=== PATIENT | female | born 1995 | race African-American/Black ===

== ENCOUNTER 2021-12-05 10:08 | Outpatient (CLI) | payer BC, MEDICAID, SELFPAY | END 2021-12-05 10:09 | disposition home or self-care (01) | LOC: ANHLAB 10:14 | PROVIDERS: PCP Obstetrics & Gynecology; Visit Provider Obstetrics & Gynecology | DX: N92.6 Irregular menstruation, unspecified (principal) | CPT/HCPCS: 36415; 84702 ==

== ENCOUNTER 2021-12-08 09:39 | Outpatient (CLI) | payer BC, MEDICAID, SELFPAY | END 2021-12-08 09:40 | disposition home or self-care (01) | PROVIDERS: PCP Obstetrics & Gynecology; Visit Provider Obstetrics & Gynecology | DX: N92.6 Irregular menstruation, unspecified (principal) | CPT/HCPCS: 36415; 84702 ==

== ENCOUNTER 2022-01-02 08:10 | Emergency (ER) | payer BC, MEDICAID, SELFPAY ==
--- NOTE | ~2022-01-02 | US_ITS ---
EXAMINATION: US OB <= 14 weeks fetus DATE: 01/02/2022 09:24 INDICATION: Right-sided pain during first trimester TECHNIQUE: Real-time pelvic transabdominal and transvaginal ultrasound was performed. COMPARISON: None. FINDINGS: The uterus measures 14.1 x 8.3 x 4.9 cm. There is an intrauterine gestational sac. A yolk sac is identified. heart motion is identified measuring 159 beats per minute (bpm) by M-mode Do ppler. The crown rump length measures 3.8 cm, which correlates with an estimated gestational ag e of 10 weeks and 5 day(s) (+/-) 7 day(s). The right ovary measures 3.9 x 2.0 x 2.0 cm. The left ovary measures 2.2 x 1.5 x 1.7 cm. There is nor mal vascular flow in the ovaries. There is no free fluid in the pelvis. IMPRESSION: 1. Live intrauterine with an estimated gestational age of 10 weeks and 5 day(s) (+/-) 7 day (s) and an estimated delivery date of 07/26/2022. Reviewed, dictated and finalized at location A. IMPRESSION: 1. Live intrauterine with an estimated gestational age of 10 weeks an d 5 day(s) (+/-) 7 day(s) and an estimated delivery date of 07/26/2022.
[2022-01-02 08:15] VITALS: BP 132/88; PULSE 69; RESP 16; TEMP 36.7; O2SAT 99
--- NOTE | 2022-01-02 08:19 | ED.ABDPAIN ---
HPI - Abdominal Pain General Chief Complaint: Abdominal Pain Stated Complaint: right abdomen pain, 12 weeks Time Seen by Provider: 01/02/22 08:18 Source: patient and RN notes reviewed Mode of arrival: ambulatory Limitations: no limitations History of Present Illness HPI narrative: 26 years old -[place] female drove herself to the emergency room complaining of right lower quadrant pain without radiation started 1 week ago, intermittent, getting more intense lately. Patient found out that she is recently. Patient is 5 para 1 3, history of PCOS currently on vitamins, she denied any smoking ,drinking or using drugs last menstrual period was August 30, 2021 she denied any vaginal bleeding or discharge also she denies any fever, chills or nausea. Patient reported vomiting twice over the last 24 hours Related Data Home Medications Medication Instructions Recorded Confirmed vits,calcium 91-iron 28 pkg PO 01/02/22 mg-folic 975 mcg-dha 200 mg oral pack ( + DHA) Allergies Allergy/AdvReac Type Severity Reaction Status Date / Time No Known Allergies Allergy Verified 01/02/22 08:19 Review of Systems Review of Systems: All systems reviewed & are unremarkable except as noted in HPI and below PMFSH Past Medical History Medical History Liver disease MTHFR gene mutation Obesity PCOS (polycystic ovarian syndrome) Suppression of menses Social History Social History Smoking status: Never smoker Alcohol intake: never Substance use: never Substance use type: does not use 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 Gender identity (if verbalized by the patient): Female Sexual Orientation (if Verbalized by the Patient): Straight or Heterosexual Exam Narrative: General appearance: Well-developed, well-nourished Skin: Normal color Head: Normocephalic, nontraumatic Eyes: Clear conjunctiva ENT: Oropharynx normal, ears normal, nose normal Neck: Supple, nontender Chest and respiratory: Airway patent, no respiratory distress, no accessory muscle use Heart: Regular rate/rhythm Abdomen: Soft, slight tenderness right lower quadrant, no organomegaly, quiet bowel sounds Vascular: Normal peripheral pulses, normal capillary refill. Musculoskeletal: Normal range of motion, nontender back Neurologic: Alert and oriented ?3, [employer] is normal as tested, no gross motor deficit Course Vital Signs Vital signs: Vital Signs Temperature 36.7 C 01/02/22 08:15 Pulse Rate 69 01/02/22 08:15 Respiratory Rate 16 01/02/22 08:15 Blood Pressure 132/88 01/02/22 08:15 Pulse Oximetry 99 01/02/22 08:15 Oxygen Delivery Room Air 01/02/22 08:15 Temperature 36.7 C 01/02/22 08:15 Pulse Rate 69 01/02/22 08:15 Respiratory Rate 16 01/02/22 08:15 Blood Pressure 132/88 01/02/22 08:15 Pulse Oximetry 99 01/02/22 08:15 Oxygen Delivery Room Air 01/02/22 08:15 MDM - Abdominal Pain Differential Diagnosis Differential diagnosis: Likely abdominal pain, acute appendicitis, calculus of kidney, constipation and diverticulitis Lab Data Result diagrams: 01/02/22 08:25 01/02/22 08:25 Labs: Lab Results 01/02/22 01/02/22 01/02/22 Range/Units 08:25 08:25 08:25 WBC 9.2 (4.5-10.0) K/mm3 RBC 4.72 (4.2-5.4) M/mm3 Hgb 14.5 (12.0-15.0) g/dL Hct 43.0 (37.0-47.0) % MCV 91.1 (80-100) fl MCH 30.7 (26-34) pg MCHC 33.7 (32-36) g/dl RDW 13.2 (11.5-14.5) % Plt Count 320 (150-375) k/mm3 MP
[2022-01-02 08:42] LABS: Basophils Percent Auto 0.2 % (0.2-1.2); Eosinophils Absolute Auto 0.3 K/mm3 (0-0.3); Eosinophils Percent Auto 2.7 % (0-4.4); Hemoglobin 14.5 g/dL (12.0-15.0); Immature Granulocyte Absolute 0.02 K/mm3 (0.00-0.031); Immature Granulocyte Percent A 0.2 % (0-0.5); Lymphocytes Absolute Auto 2.04 K/mm3 (0.9-3.2); Lymphocytes Percent Auto 22.2 % (18.3-44.2); Mean Corpuscular HGB Conc 33.7 g/dl (32-36); Mean Corpuscular Hemoglobin 30.7 pg (26-34); Mean Corpuscular Volume 91.1 fl (80-100); Mean Platelet Volume 9.5 fl (7.4-10.4); Monocytes Absolute Auto 0.5 K/mm3 (0.1-0.6); Monocytes Percent Auto 5.1 % (2.6-8.5); Neutrophils Absolute Auto 6.4 K/mm3 (1.3-6.7); Neutrophils Percent Auto 69.6 % (45.5-73.1); Platelet Count Result 320 k/mm3 (150-375); Red Blood Count 4.72 M/mm3 (4.2-5.4); Red Cell Distribution Width 13.2 % (11.5-14.5); White Blood Count 9.2 K/mm3 (4.5-10.0)
[2022-01-02 08:45] LABS: Add Urine Microscopic? NO; Appearance Urine Clear (Clear); Bilirubin Urine Negative (Negative); Blood Urine Negative (Negative); Color Urine Yellow (Yellow); Glucose Urine UA Negative (Negative); Ketones Urine Negative (Negative); Leukocyte Esterase Ur Negative LEU/UL (Negative); Nitrate Urine Negative (Negative); Protein Urine Negative (Negative); Specific Grav Ur 1.019 (1.001-1.035); Urobilinogen Urine Negative mg/dL (<2.0)
[2022-01-02 08:48] LABS: Alanine Aminotransferase 53 U/L (6-35); Albumin Level 3.9 g/dL (3.5-5.1); Alkaline Phosphatase 102 U/L (38-126); Anion Gap 7 mmol/L (8-16); Aspartate Amino Transferase 51 U/L (14-36); Bilirubin,Total 0.5 mg/dL (0.2-1.3); Blood Urea Nitrogen 7 mg/dL (7-17); Calcium 8.8 mg/dL (8.4-10.2); Carbon Dioxide 23 mmol/L (22-30); Chloride 104 mmol/L (98-107); Estimated CRCL calculation 137 ml/min; Estimated Glomerular Filt Rate > 60; Glucose 97 mg/dL (65-110); Lipase 71 U/L (23-300); Potassium 3.5 mmol/L (3.4-5.0); Sodium 134 mmol/L (137-145)
== END 2022-01-02 11:51 | disposition home or self-care (01) ==
PROVIDERS: Emergency Provider Emergency Medicine; PCP Obstetrics & Gynecology
DX: O26.891 Other specified pregnancy related conditions, first trimester (principal); R10.31 Right lower quadrant pain; O99.281 Endocrine, nutritional and metabolic diseases complicating pregnancy, first trimester; E28.2 Polycystic ovarian syndrome; E72.12 Methylenetetrahydrofolate reductase deficiency; O26.611 Liver and biliary tract disorders in pregnancy, first trimester; K76.9 Liver disease, unspecified; Z3A.12 12 weeks gestation of pregnancy
CPT/HCPCS: 36415; 76801; 80053; 81003; 83690; 84702; 85025; 85461; 99284

== ENCOUNTER 2022-01-08 08:11 | Outpatient (CLI) | payer BC, MEDICAID, SELFPAY ==
[2022-01-08 10:11] LABS: Glucose 1 Hour PP 50gm Dose 83 mg/dL
[2022-01-08 10:37] LABS: Basophils Percent Auto 0.2 % (0.2-1.2); Eosinophils Absolute Auto 0.2 K/mm3 (0-0.3); Eosinophils Percent Auto 1.9 % (0-4.4); Hematocrit 43.9 % (37.0-47.0); Hemoglobin 14.7 g/dL (12.0-15.0); Immature Granulocyte Absolute 0.04 K/mm3 (0.00-0.031); Immature Granulocyte Percent A 0.4 % (0-0.5); Lymphocytes Absolute Auto 1.95 K/mm3 (0.9-3.2); Lymphocytes Percent Auto 19.8 % (18.3-44.2); Mean Corpuscular HGB Conc 33.5 g/dl (32-36); Mean Corpuscular Hemoglobin 30.9 pg (26-34); Mean Corpuscular Volume 92.4 fl (80-100); Monocytes Absolute Auto 0.6 K/mm3 (0.1-0.6); Neutrophils Absolute Auto 7.1 K/mm3 (1.3-6.7); Neutrophils Percent Auto 71.7 % (45.5-73.1); Platelet Count Result 337 k/mm3 (150-375); Red Blood Count 4.75 M/mm3 (4.2-5.4); Red Cell Distribution Width 13.5 % (11.5-14.5); White Blood Count 9.9 K/mm3 (4.5-10.0)
[2022-01-08 10:49] LABS: Hepatitis B Surface Antigen Negative (Negative); Rubella IgG Antibody 12.9 IU/ML
[2022-01-08 10:55] LABS: HIV 1/2 Ab P24 Ag Result Negative (Negative)
[2022-01-09 13:49] LABS: Rapid Plasma Reagin Non-Reactive (NonReactive)
== END 2022-01-08 08:12 | disposition home or self-care (01) ==
PROVIDERS: PCP Obstetrics & Gynecology; Visit Provider Obstetrics & Gynecology
DX: N94.89 Other specified conditions associated with female genital organs and menstrual cycle (principal); E66.9 Obesity, unspecified
CPT/HCPCS: 36415; 82947; 84702; 85025; 86592; 86644; 86703; 86747; 86762; 86787; 86850; 86900; 86901; 87077; 87086; 87088; 87340; G0432

== ENCOUNTER 2022-03-12 12:12 | Outpatient (CLI) | payer BC, MEDICAID, SELFPAY | END 2022-03-12 13:10 | disposition home or self-care (01) | LOC: ANHOBOP 13:31 | PROVIDERS: PCP Obstetrics & Gynecology; Visit Provider Obstetrics & Gynecology | DX: O36.8190 Decreased fetal movements, unspecified trimester, not applicable or unspecified (principal); Z3A.00 Weeks of gestation of pregnancy not specified | CPT/HCPCS: 84112 ==

== ENCOUNTER 2022-04-27 07:12 | Outpatient (CLI) | payer MEDICAID, SELFPAY ==
[2022-04-27 09:30] LABS: Basophils Percent Auto 0.2 % (0.2-1.2); Eosinophils Absolute Auto 0.2 K/mm3 (0-0.3); Eosinophils Percent Auto 1.9 % (0-4.4); Hematocrit 40.4 % (37.0-47.0); Hemoglobin 13.3 g/dL (12.0-15.0); Immature Granulocyte Absolute 0.05 K/mm3 (0.00-0.031); Immature Granulocyte Percent A 0.5 % (0-0.5); Lymphocytes Absolute Auto 1.95 K/mm3 (0.9-3.2); Mean Corpuscular HGB Conc 32.9 g/dl (32-36); Mean Corpuscular Hemoglobin 30.2 pg (26-34); Mean Corpuscular Volume 91.8 fl (80-100); Mean Platelet Volume 9.6 fl (7.4-10.4); Monocytes Absolute Auto 0.6 K/mm3 (0.1-0.6); Monocytes Percent Auto 6.1 % (2.6-8.5); Neutrophils Absolute Auto 7.4 K/mm3 (1.3-6.7); Neutrophils Percent Auto 72.3 % (45.5-73.1); Platelet Count Result 404 k/mm3 (150-375); Red Cell Distribution Width 13.4 % (11.5-14.5); White Blood Count 10.3 K/mm3 (4.5-10.0)
[2022-04-27 09:41] LABS: Glucose 1 Hour PP 50gm Dose 84 mg/dL
[2022-04-27 10:17] LABS: HIV 1/2 Ab P24 Ag Result Negative (Negative)
[2022-04-30 16:07] LABS: Hepatitis C RNA, Quant PCR 1670000 IU/mL
== END 2022-04-27 07:13 | disposition home or self-care (01) ==
PROVIDERS: Student in an Organized Health Care Education/Training Program; PCP Obstetrics & Gynecology; Visit Provider Obstetrics & Gynecology
DX: O98.419 Viral hepatitis complicating pregnancy, unspecified trimester (principal); Z3A.00 Weeks of gestation of pregnancy not specified; B18.2 Chronic viral hepatitis C
CPT/HCPCS: 36415; 82947; 85025; 86703; 87522; G0432

== ENCOUNTER 2022-05-07 13:23 | Observation (INO) | payer MEDICAID, SELFPAY ==
[2022-05-07 13:46] VITALS: BP 138/124; PULSE 106
[2022-05-07 14:01] VITALS: BP 125/68; PULSE 103
[2022-05-07 14:10] VITALS: BMI 39.6
--- NOTE | 2022-05-07 14:11 | OBADM ---
This patient, Fanny Connor, admitted to the OB room OB Post 115 for observation. Patient/family oriented to hospital policies and general routines including ID bracelet, bed and alarms, visiting hours, pain management, procedures, bathroom and other care routines, personal items, smoking policy, room service/diet, and visiting hours. Patient/Family are encouraged to report perceived risks to care and to ask questions if they do not understand what they are told or what they should do.
[2022-05-07 14:14] LABS: Appearance Urine Clear (Clear); Bilirubin Urine Negative (Negative); Blood Urine Negative (Negative); Color Urine Yellow (Yellow); Glucose Urine UA Negative (Negative); Ketones Urine Trace mg/dL (Negative); Leukocyte Esterase Ur Negative LEU/UL (Negative); Nitrate Urine Negative (Negative); Protein Urine Negative (Negative); Urobilinogen Urine 0.2 mg/dL (<2.0); pH Urine 7.5 (5.0-9.0)
[2022-05-07 14:16] VITALS: BP 116/64; PULSE 98
[2022-05-07 14:20] LABS: Bacteria Urine Trace /hpf; Mucus Urine Rare /lpf; RBC Urine 0-2 /hpf (0-2); Squamous Epithelial Cell Urine Rare /hpf (Few); WBC Urine 0-3 /hpf
[2022-05-07 14:21] LABS: Add Urine Microscopic? YES
[2022-05-07 14:31] VITALS: BP 122/66; PULSE 97
--- NOTE | 2022-05-08 15:10 | P.PNOB_ITS ---
OB - Triage/Final Diagnosis Visit Information Reason for evaluation: threatened labor Comments/Additional reasons for admission: I have assessed the risk for this patient, Fanny Connor, and determined that she would benefit from observation care. Evaluation Laboratory results: Laboratory Tests 05/07/22 13:52 Urine Color Yellow Urine Appearance Clear Urine pH 7.5 Ur Specific [place] 1.020 Urine Protein Negative Urine Glucose (UA) Negative Urine Ketones Trace Ur Blood (Man) Negative Urine Nitrate Negative Urine Bilirubin Negative Urine Urobilinogen 0.2 Leukocyte Esterase Rfl Negative Urine RBC 0-2 Urine WBC 0-3 Ur Squamous Epith Cells Rare Urine Bacteria Trace Urine Mucus Rare
== END 2022-05-07 15:00 | disposition home or self-care (01) ==
PROVIDERS: Admitting Provider Obstetrics & Gynecology; PCP Nurse Practitioner Family; Visit Provider Obstetrics & Gynecology
DX: O47.03 False labor before 37 completed weeks of gestation, third trimester (principal); Z3A.29 29 weeks gestation of pregnancy
CPT/HCPCS: 81001; G0378; G0379

== ENCOUNTER 2022-05-17 13:26 | Observation (INO) | payer MEDICAID, SELFPAY ==
--- NOTE | 2022-05-17 13:45 | PC.NURSE ---
Pt presented to OB with complaints of occasional spotting when she wipes. Pt reports she has a lactose intolerance and ate ice cream and cheese yesterday and was followed by several bouts of diarrhea since. Her last reported bowel movement was early this morning. Pt states that when she wipes there is an occasional few spots of blood on the tissue but does not require a pad.
--- NOTE | 2022-05-17 13:47 | PC.NURSE ---
Dr. Coleman called on the pt. ordered pt to have CMP drawn, NST and fluids if the pt would like them.
--- NOTE | 2022-05-17 13:51 | PC.NURSE ---
Pt refusing IV fluids at this time.
[2022-05-17 13:56] VITALS: BP 120/69; PULSE 84
[2022-05-17 14:00] VITALS: BP 121/70; PULSE 80
[2022-05-17 14:15] VITALS: BP 119/71; PULSE 78
[2022-05-17 14:16] LABS: Alanine Aminotransferase 25 U/L (6-35); Albumin Level 3.7 g/dL (3.5-5.1); Alkaline Phosphatase 191 U/L (38-126); Anion Gap 2 mmol/L (8-16); Aspartate Amino Transferase 26 U/L (14-36); Bilirubin,Total 0.4 mg/dL (0.2-1.3); Blood Urea Nitrogen 5 mg/dL (7-17); Calcium 8.9 mg/dL (8.4-10.2); Carbon Dioxide 23 mmol/L (22-30); Chloride 107 mmol/L (98-107); Estimated Glomerular Filt Rate > 60; Glucose 66 mg/dL (65-110); Sodium 132 mmol/L (137-145)
[2022-05-17 14:30] VITALS: BP 121/70; PULSE 84
--- NOTE | 2022-05-21 09:46 | PM.OBTRLD ---
OB - Triage/Final Diagnosis Visit Information Date of evaluation: 05/17/22 Reason for evaluation: threatened labor Comments/Additional reasons for admission: I have assessed the risk for this patient, Fanny Connor, and determined that she would benefit from observation care. Evaluation Laboratory results: Laboratory Tests 05/17/22 13:55 Sodium 132 L Potassium 4.0 Chloride 107 Carbon Dioxide 23 Anion Gap 2 L BUN 5 L Creatinine 0.50 L Estim Creat Clear Calc Not Reportable Estimated GFR > 60 Glucose 66 Calcium 8.9 Total Bilirubin 0.4 AST 26 ALT 25 Alkaline Phosphatase 191 H Total Protein 7.0 Albumin 3.7
== END 2022-05-17 14:45 | disposition home or self-care (01) ==
PROVIDERS: Admitting Provider Student in an Organized Health Care Education/Training Program; PCP Nurse Practitioner Family; Visit Provider Student in an Organized Health Care Education/Training Program
DX: O47.03 False labor before 37 completed weeks of gestation, third trimester (principal); Z3A.30 30 weeks gestation of pregnancy
CPT/HCPCS: 36415; 59025; 80053; G0378; G0379

== ENCOUNTER 2022-06-04 09:18 | Outpatient (CLI) | payer MEDICAID, SELFPAY ==
[2022-06-04 10:23] LABS: Prothrombin Time 12.7 Seconds (11.1-14.7)
[2022-06-04 10:24] LABS: Partial Thromboplastin Time 21.8 SECONDS (22.3-36.8)
[2022-06-04 10:47] LABS: Alanine Aminotransferase 23 U/L (6-35); Albumin Level 3.4 g/dL (3.5-5.1); Alkaline Phosphatase 215 U/L (38-126); Anion Gap 4 mmol/L (8-16); Aspartate Amino Transferase 26 U/L (14-36); Bilirubin,Total 0.5 mg/dL (0.2-1.3); Blood Urea Nitrogen 4 mg/dL (7-17); Calcium 8.5 mg/dL (8.4-10.2); Carbon Dioxide 20 mmol/L (22-30); Chloride 109 mmol/L (98-107); Estimated Glomerular Filt Rate > 60; Glucose 96 mg/dL (65-110); Potassium 3.7 mmol/L (3.4-5.0); Sodium 133 mmol/L (137-145)
== END 2022-06-04 09:19 | disposition home or self-care (01) ==
LOC: ANHLAB 09:21
PROVIDERS: PCP Nurse Practitioner Family
DX: B19.20 Unspecified viral hepatitis C without hepatic coma (principal)
CPT/HCPCS: 36415; 80053; 85610; 85730

== ENCOUNTER 2022-06-11 11:07 | Outpatient (CLI) | payer MEDICAID, SELFPAY ==
--- NOTE | ~2022-06-11 | US_ITS ---
Limited Abdominal Sonogram: Real-time sonographic imaging of the right upper quadrant was performed. Clinical History: Right upper quadrant pain Findings: The liver appears normal with no evidence of mass lesion or bile duct dilatation. Main por geeta vein demonstrates normal direction of flow. The gallbladder is well distended, and appears normal with no evidence of gallstone or wall thickening. The common bile duct measures 3 mm. The pancreas, aorta, and IVC are obscured by bowel gas shadowing. Impression: No significant abnormality seen. Reviewed, dictated and finalized at location M. Impression: No significant abnormality seen.
== END 2022-06-11 11:08 | disposition home or self-care (01) ==
LOC: ANHIMG 11:08
PROVIDERS: PCP Nurse Practitioner Family; Visit Provider Obstetrics & Gynecology
DX: R10.11 Right upper quadrant pain (principal)
CPT/HCPCS: 76705

== ENCOUNTER 2022-06-22 15:35 | Observation (INO) | payer BC, OTHER, SELFPAY ==
[2022-06-22 16:00] VITALS: TEMP 36.6
[2022-06-22 16:45] VITALS: BP 142/78; PULSE 96
[2022-06-22 17:00] VITALS: BP 142/83; PULSE 109
[2022-06-22 17:18] LABS: Bacteria Urine Rare /hpf; Non Pathogenic Casts 0-2; RBC Urine 0-2 /hpf (0-2); Squamous Epithelial Cell Urine None seen /hpf (Few); WBC Urine 0-5 /hpf
[2022-06-22 17:28] LABS: Appearance Urine Clear (Clear); Bilirubin Urine Negative (Negative); Blood Urine Negative (Negative); Color Urine Yellow (Yellow); Glucose Urine UA Negative (Negative); Ketones Urine 2+ mg/dL (Negative); Leukocyte Esterase Ur Negative LEU/UL (Negative); Nitrate Urine Negative (Negative); Protein Urine Trace mg/dL (Negative); Specific Grav Ur >= 1.030 (1.001-1.035); Urobilinogen Urine 0.2 mg/dL (<2.0); pH Urine 6.5 (5.0-9.0)
[2022-06-22 17:31] LABS: Add Urine Microscopic? YES
--- NOTE | 2022-06-25 14:01 | PM.OBTRLD ---
OB - Triage/Final Diagnosis Visit Information Date of evaluation: 06/22/22 Reason for evaluation: threatened labor Comments/Additional reasons for admission: I have assessed the risk for this patient, Fanny Connor, and determined that she would benefit from observation care. Evaluation Laboratory results: Laboratory Tests 06/22/22 17:04 Urine Color Yellow Urine Appearance Clear Urine pH 6.5 Ur Specific [place] >= 1.030 Urine Protein Trace Urine Glucose (UA) Negative Urine Ketones 2+ H Ur Blood (Man) Negative Urine Nitrate Negative Urine Bilirubin Negative Urine Urobilinogen 0.2 Leukocyte Esterase Rfl Negative Urine RBC 0-2 Urine WBC 0-5 Ur Squamous Epith Cells None seen Urine Bacteria Rare Urine Casts 0-2
== END 2022-06-22 17:48 | disposition home or self-care (01) ==
PROVIDERS: Admitting Provider Student in an Organized Health Care Education/Training Program; PCP Nurse Practitioner Family; Visit Provider Student in an Organized Health Care Education/Training Program
DX: O47.03 False labor before 37 completed weeks of gestation, third trimester (principal); Z3A.36 36 weeks gestation of pregnancy
CPT/HCPCS: 81001; G0378; G0379

== ENCOUNTER 2022-07-06 13:33 | Outpatient (CLI) | payer BC, OTHER, SELFPAY | END 2022-07-06 14:10 | disposition home or self-care (01) | LOC: ANHOBOP 14:19 | PROVIDERS: PCP Nurse Practitioner Family; Visit Provider Obstetrics & Gynecology | DX: O42.90 Premature rupture of membranes, unspecified as to length of time between rupture and onset of labor, unspecified weeks of gestation (principal); Z3A.00 Weeks of gestation of pregnancy not specified | CPT/HCPCS: 59025; 84112 ==

== ENCOUNTER 2022-07-13 04:58 | Inpatient (IN) | payer BC, OTHER, SELFPAY ==
[2022-07-13] VITALS (132 sets, daily range): BP systolic 74–161; BP diastolic 33–127; PULSE 63–151; RESP 18; TEMP 36.8–37; O2SAT 94–100; BMI 40.3
--- NOTE | 2022-07-13 05:16 | LDADM ---
This patient, Fanny Connor, was admitted to Labor/Delivery/Recovery 105 on 07/13/22 at 04:58. Plans for labor, pain management and were discussed with patient. Patient/family oriented to hospital policies and general routines including ID bracelet, bed and alarms, visiting hours, pain management, procedures, bathroom and other care routines, personal items, smoking policy, room service/diet and guest tray routines, security routines, and visiting hours. Patient/Family are encouraged to report perceived risks to care and to ask questions if they do not understand what they are told or what they should do. See OBIX for further documentation.
[2022-07-13 05:33] LABS: Basophils Percent Auto 0.2 % (0.2-1.2); Eosinophils Absolute Auto 0.2 K/mm3 (0-0.3); Hematocrit 36.9 % (37.0-47.0); Hemoglobin 12.2 g/dL (12.0-15.0); Immature Granulocyte Absolute 0.03 K/mm3 (0.00-0.031); Immature Granulocyte Percent A 0.3 % (0-0.5); Lymphocytes Absolute Auto 2.48 K/mm3 (0.9-3.2); Lymphocytes Percent Auto 25.7 % (18.3-44.2); Mean Corpuscular HGB Conc 33.1 g/dl (32-36); Mean Corpuscular Volume 84.8 fl (80-100); Mean Platelet Volume 9.5 fl (7.4-10.4); Monocytes Absolute Auto 0.8 K/mm3 (0.1-0.6); Monocytes Percent Auto 7.8 % (2.6-8.5); Neutrophils Absolute Auto 6.2 K/mm3 (1.3-6.7); Platelet Count Result 361 k/mm3 (150-375); Red Blood Count 4.35 M/mm3 (4.2-5.4); White Blood Count 9.7 K/mm3 (4.5-10.0)
[2022-07-13] MEDS: OXYTOCIN 30 UNITS/NS 500 ML 30 UNITS/500 ML BAG IV CONT (05:37)
[2022-07-13] MEDS: LACTATED RINGERS 1,000 ML 125 ML IV CONT (05:38)
[2022-07-13] MEDS: AMPICILLIN 2 GM/NS 100 ML 2 GM/100 ML BAG IVPB (05:39)
[2022-07-13 05:55] LABS: Alanine Aminotransferase 25 U/L (6-35); Albumin Level 3.5 g/dL (3.5-5.1); Alkaline Phosphatase 274 U/L (38-126); Anion Gap 4 mmol/L (8-16); Aspartate Amino Transferase 27 U/L (14-36); Bilirubin,Total 0.5 mg/dL (0.2-1.3); Blood Urea Nitrogen 6 mg/dL (7-17); Calcium 8.4 mg/dL (8.4-10.2); Carbon Dioxide 19 mmol/L (22-30); Chloride 110 mmol/L (98-107); Estimated CRCL calculation 134 ml/min; Estimated Glomerular Filt Rate > 60; Glucose 87 mg/dL (65-110); Potassium 3.7 mmol/L (3.4-5.0); Sodium 133 mmol/L (137-145)
[2022-07-13] MEDS: TERBUTALINE SULFATE 1 MG/ML VIAL 0.25 MG SUB-Q (07:54)
[2022-07-13] MEDS: fentaNYL CITRATE INJ (*CRX) 100 MCG/2 ML VIAL 50 MCG IV PUSH (08:17)
[2022-07-13] MEDS: AMPICILLIN 1 GM/NS 50 ML 1 GM/50 ML BAG IVPB (09:22)
[2022-07-13] MEDS: ONDANSETRON INJ 4 MG/2 ML VIAL IV PUSH (09:46)
--- NOTE | 2022-07-13 11:06 | WPDANESEPPF ---
Anes - Initial Pre Proc Eval Date/Time: 07/13/22 11:06 Surgeon: Scout Marino MD Pre Op Diagnosis: IOL Patient Data Age: 27 Gender: F Height: 1.57 m Weight: 100 kg Last Vital Signs Pulse 99 07/13/22 11:01 BP 109/66 07/13/22 11:01 Pulse Ox 100 07/13/22 11:02 O2 Del Method Room Air 07/13/22 05:13 Allergies Allergy/AdvReac Type Severity Reaction Status Date / Time No Known Allergies Allergy Verified 07/11/22 14:04 Home Medications Medication Instructions Recorded Confirmed Type vits,calcium 91-iron 28 pkg PO 01/02/22 07/11/22 History mg-folic 975 mcg-dha 200 mg oral pack ( + DHA) Laboratory Tests 07/13/22 05:25 WBC 9.7 K/mm3 (4.5-10.0) RBC 4.35 M/mm3 (4.2-5.4) Hgb 12.2 g/dL (12.0-15.0) Hct 36.9 L % (37.0-47.0) MCV 84.8 fl (80-100) MCH 28.0 pg (26-34) MCHC 33.1 g/dl (32-36) RDW 14.0 % (11.5-14.5) Plt Count 361 k/mm3 (150-375) MPV 9.5 fl (7.4-10.4) Immature Gran % (Auto) 0.3 % (0-0.5) Neut % (Auto) 64.0 % (45.5-73.1) Lymph % (Auto) 25.7 % (18.3-44.2) [place] % (Auto) 7.8 % (2.6-8.5) Eos % (Auto) 2.0 % (0-4.4) Baso % (Auto) 0.2 % (0.2-1.2) Lymph # (Auto) 2.48 K/mm3 (0.9-3.2) [place] # (Auto) 0.8 H K/mm3 (0.1-0.6) Eos # (Auto) 0.2 K/mm3 (0-0.3) Baso # (Auto) 0.0 K/mm3 (0.0-0.1) Abs Immat Gran (auto) 0.03 K/mm3 (0.00-0.031) Absolute Neuts (auto) 6.2 K/mm3 (1.3-6.7) Absolute Nucleated RBC 0.0 K/mm3 (0.0-0.012) Nucleated RBC % 0.0 % (0.0-0.2) Sodium 133 L mmol/L (137-145) Potassium 3.7 mmol/L (3.4-5.0) Chloride 110 H mmol/L (98-107) Carbon Dioxide 19 L mmol/L (22-30) Anion Gap 4 L mmol/L (8-16) BUN 6 L mg/dL (7-17) Creatinine 0.60 L mg/dL (0.7-1.0) Estim Creat Clear Calc 134 ml/min Estimated GFR > 60 (59 - ) Glucose 87 mg/dL (65-110) Calcium 8.4 mg/dL (8.4-10.2) Total Bilirubin 0.5 mg/dL (0.2-1.3) AST 27 U/L (14-36) ALT 25 U/L (6-35) Alkaline Phosphatase 274 H U/L (38-126) Total Protein 7.0 g/dL (6.3-8.2) Albumin 3.5 g/dL (3.5-5.1) RPR Pending Blood Type A Positive Antibody Screen Negative Patient hx anesthesia problems: none Family hx anesthesia problems: none Results Review: All pre-operative results and documents have been reviewed as part of the pre-operative evaluation. [facility] Past Medical History Medical History Liver disease MTHFR gene mutation Obesity PCOS (polycystic ovarian syndrome) Suppression of menses Family History Family History Other Patient denies significant medical history Social History Social History Smoking status: Never smoker Alcohol intake: never Substance use: never Substance use type: does not use Lack of Transportation: No Lack of Food: Never True Current Housing: I Have Housing Concerned About Future Housing: No Difficulty Paying Gas/Electric Bills: No Difficulty Paying for Meds: No Currently Unemployed: No Education: High School Diploma/GED Difficulty w/ Childcare or Family Care: No Living arrangements: with family Occupation/Education: occupation 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
[2022-07-13 11:25] LABS: Rapid Plasma Reagin Non-Reactive (NonReactive)
--- NOTE | 2022-07-13 13:33 | WPDHPUPDATE1 ---
History and Physical Update Update Date/Time: 07/13/22 13:33 History and Physical has been reviewed, including an updated exam of the patient. There are NO changes in the patient's condition. Risks, benefits, and alternatives have been discussed and questions answered. Patient agrees to proceed with procedure.
--- NOTE | 2022-07-13 13:33 | WPDOBADMIT ---
Obstetrics - Admit Note Admission Note: record reviewed. No pertinent additions to the history and/or any subsequent changes in the physical findings that are not consistent with the expected course of the were found. Additions to the history and/or subsequent changes in the physical findings follow. None.
--- NOTE | 2022-07-13 13:33 | PM.OBPRVD ---
OB - Delivery Note Procedure Events: Other (History of hepatitis-C) Induction method: Per Pitocin Protocol Delivery augmentation: Rupture of Membranes Delivery monitor: External FHT and External Uterine Route of delivery: Episiotomy description: None Laceration Description: None Specimen: Yes Quantitative Blood Loss (ml): 300 Anesthesia type: Epidural Disposition: Floor Complications: none Narrative: patient prepped draped usual manner for this procedure. Maternal expulsive efforts readily delivered vertex with delivery of the rest of baby without difficulty. Cord clamped cut and placenta delivered spontaneously. Uterus was well contracted with minimal bleeding. Cervix vagina vulva were inspected with no lacerations or tears. Patient told procedure well and immediate postoperative condition of mother and baby were both excellent. [place] Baby Weeks of gestation at delivery: 39 gender: Female Weight (pounds): 7 Weight (ounces): 6 presentation: vertex Placenta delivery description: Spontaneous Cord Vessel Description: 3 Vessels score one minute: 9 score five minutes: 9 AMG Delivery Billing Delivery Delivery: Delivery Charge
[2022-07-13] MEDS: OXYTOCIN 30 UNITS/NS 500 ML 30 UNITS/500 ML BAG 125 UNITS IV CONT (13:45)
[2022-07-13] MEDS: IBUPROFEN 600 MG TABLET PO ×2 (17:09→23:40)
--- NOTE | 2022-07-13 17:18 | OBPPTRN ---
1615-Patient transferred to post room #292 via wheelchair. Support person present. Oriented to unit, room, information board, rooming in, admission packet and security measures. Patient verbalizes understanding.
[2022-07-14 04:23] VITALS: BP 120/71; PULSE 76; RESP 16; O2SAT 98
[2022-07-14 05:12] LABS: Hematocrit 37.1 % (37.0-47.0); Hemoglobin 11.7 g/dL (12.0-15.0)
[2022-07-14 06:40] VITALS: BP 124/71; PULSE 82; RESP 14; TEMP 36.2; O2SAT 100
--- NOTE | 2022-07-14 07:31 | PM.OBDSVD ---
DS: Admitting Diagnosis Discharge Date 07/14/2022 Admitting Diagnosis DS: Discharge Diagnosis Discharge Diagnosis (1) , delivered: Code(s): O80 - Encounter for full-term uncomplicated delivery Status: Acute OB - DS: Summary OB Procedures : None OB Procedures Intrapartum: Spontaneous Vag Delivery OB Procedures: : None Time Spent with Patient Time attestation: Total time spent providing and/or coordinating discharge services: DS: Data Data Completed and Pending Pending studies at discharge: Pending at discharge 07/13/22 14:49 Surgical [PTH] Routine Labs on day of discharge: Labs from last 24 hours 07/14/22 07/13/22 07/13/22 04:22 14:18 05:25 Hgb 11.7 L Hct 37.1 RPR Non-reactive Hepatitis C Ab Screen Pending Discharge Plan Discharge Discharging Clinician: Scout Marino Patient Disposition: Home, Self-Care Activity: as tolerated Diet: as tolerated Patient Instructions: Antibiotic Form Stand Alone Forms: General Discharge Information Follow-up/Referrals: Scout Marino MD [Physician] - 3 Weeks Discharge Medications: Continued + DHA 28 mg iron- 975 mcg-200 mg Combo Pack PO Date of admission: 07/13/22 04:58 Primary Care Provider: Mariah,Marleny Garcia Admitting Provider: Scout Marino Attending physician on admission: Scout Marino Condition: Stable
[2022-07-14] MEDS: MULTIVIT/MIN/PREN/FOL AC/IRON TABLET 1 TAB PO (09:58)
--- NOTE | 2022-07-14 11:14 | WPDANLDPN2 ---
Anes-Prog Note L&D Date/Time: 07/14/22 11:14 Comfortable throughout: labor and delivery Neuraxial method: epidural Epidural/Spinal procedure site: clean & non-tender Neuro status: Neuro function grossly intact. Cardiovascular status: normal Respiratory status: normal Airway patency: baseline Mental status: baseline Post-Op hydration status: normal Vital Signs: Last Vital Signs Temp 36.2 C L 07/14/22 06:40 Pulse 82 07/14/22 06:40 Resp 14 07/14/22 06:40 BP 124/71 07/14/22 06:40 Pulse Ox 100 07/14/22 06:40 O2 Del Method Room Air 07/13/22 19:45 Pain score (VAS): 0 I/O: Intake & Output 07/13/22 07/14/22 07/14/22 23:59 07:59 15:59 Intake Total 400 Output Total 450 Balance -50 Post-procedural complaints: none Patient feedback: Patient satisfied with anesthetic care.
[2022-07-16 08:38] VITALS: BP 119/84; PULSE 86; RESP 16; TEMP 36.4; O2SAT 99
== END 2022-07-14 15:36 | disposition home or self-care (01) | DRG 807 ==
LOC: ANHLDR 05:01 → ANHOB2 16:17
PROVIDERS: Admitting Provider Obstetrics & Gynecology; PCP Nurse Practitioner Family; Visit Provider Obstetrics & Gynecology
DX: O80 Encounter for full-term uncomplicated delivery (principal); Z37.0 Single live birth; Z3A.39 39 weeks gestation of pregnancy
CPT/HCPCS: 36415; 80053; 85014; 85018; 85025; 86592; 86803; 86850; 86900; 86901; 88307; A9270; J0290; J2405; J2590; J2795; J3010; J3105; J7120

== ENCOUNTER 2022-09-17 07:56 | Outpatient (CLI) | payer BC, OTHER, SELFPAY ==
[2022-09-17 09:23] LABS: Hematocrit 44.6 % (37.0-47.0); Mean Corpuscular HGB Conc 31.4 g/dl (32-36); Mean Corpuscular Hemoglobin 27.4 pg (26-34); Mean Corpuscular Volume 87.3 fl (80-100); Mean Platelet Volume 10.5 fl (7.4-10.4); Platelet Count Result 327 k/mm3 (150-375); Red Blood Count 5.11 M/mm3 (4.2-5.4); Red Cell Distribution Width 16.6 % (11.5-14.5); White Blood Count 9.2 K/mm3 (4.5-10.0)
[2022-09-17 09:30] LABS: Anion Gap 8 mmol/L (8-16); Blood Urea Nitrogen 15 mg/dL (7-17); Calcium 8.8 mg/dL (8.4-10.2); Carbon Dioxide 25 mmol/L (22-30); Chloride 106 mmol/L (98-107); Estimated Glomerular Filt Rate > 60; Glucose 83 mg/dL (65-110); Potassium 3.9 mmol/L (3.4-5.0); Sodium 139 mmol/L (137-145)
[2022-09-17 09:31] LABS: Prothrombin Time 13.1 Seconds (11.1-14.7)
[2022-09-17 09:32] LABS: Partial Thromboplastin Time 24.7 SECONDS (22.3-36.8)
== END 2022-09-17 07:57 | disposition home or self-care (01) ==
PROVIDERS: Anesthesiology; PCP Nurse Practitioner Family; Visit Provider Obstetrics & Gynecology
DX: Z30.2 Encounter for sterilization (principal); B19.20 Unspecified viral hepatitis C without hepatic coma
CPT/HCPCS: 36415; 80048; 85027; 85610; 85730

== ENCOUNTER 2022-09-20 02:01 | Day surgery (SDC) | payer BC, OTHER, SELFPAY ==
[2022-09-13 10:06] VITALS: BMI 37.2
--- NOTE | 2022-09-13 10:10 | PC.NURSE ---
Report to the Outpatient Waiting Room, entrance under the green pavilion located off [facility], at time 6:30 on date 09/20/22. Planned Procedure Time: 8:30. Time changes happen often and if your time is changed the preop area will call you the afternoon before. - You and your visitor will be asked to self-screen and do not enter if you have any COVID symptoms. - A mask is optional within the hospital at this time. Patients may have clear liquids (water, carbonated beverages, clear teas, apple juice) until 3 hours prior to surgery (5:30) with a maximum of 20 ounces. - No food from midnight until time of surgery Take the following medications with a SIP of water the morning of surgery: N/A DO NOT STOP ANY OF YOUR OTHER PRESCRIPTION MEDICATIONS PRIOR TO SURGERY ?EXCEPT THE FOLLOWING Medications to discontinue per physician: N/A Date to take last dose: N/A Please no make-up, nail slovak, hairspray, perfume, deodorant, or body powder the day of surgery. No jewelry (including any body piercings) or valuables the day of surgery, leave them at home. Please take a shower or bath the night before, or the morning of, surgery with an antibacterial soap. Wear comfortable, loose fitting clothing. - Jewelry must be removed prior to entering the operating room. Rings and piercings that are not removed may be cut off. - The hospital will not accept responsibility for valuables. - Please leave all valuables, including medications, at home the day of surgery. If you are going home after surgery, a licensed new car driver must drive you home. - NO public transportation without another adult if you receive anesthesia. - We recommend that an adult stay with you for 24 hours following discharge. - We also recommend that you do not drive, make important decision, drink alcoholic beverages, or take any drugs that were not prescribed by your health care provider for at least 24 hours after your discharge time. Follow any additional instructions given to you from your surgeon. If you or anyone in your household have experienced Covid symptoms in the past week, please notify your surgeon or the nurse liaison at the phone number below for possible testing. Telephone instructions given to PT - CUONG ARREAGA and asked if any additional questions and then verbalized understanding. Patient advised to call surgeon office or pre surgery nurse liaison [phone] if any additional questions.
[2022-09-20] VITALS (7 sets, daily range): BP systolic 116–144; BP diastolic 66–86; PULSE 54–78; RESP 14–16; TEMP 36.4; O2SAT 93–100; BMI 37.0
[2022-09-20] MEDS: LACTATED RINGERS 1,000 ML 30 ML IV CONT (07:02)
[2022-09-20] MEDS: ACETAMINOPHEN 500 MG TABLET 1000 MG PO (07:06)
[2022-09-20] MEDS: KETOROLAC 15 MG/ML VIAL (*BKC) IV PUSH (07:07)
--- NOTE | 2022-09-20 07:58 | WPDANESEPPF ---
Anes - Initial Pre Proc Eval Procedure: Operation Date: 09/20/22 08:30 Proposed Procedures p Laparoscopic Bilateral Salpingectomy - Scout Marino MD Date/Time: 09/20/22 07:58 Surgeon: Scout Marino MD Pre Op Diagnosis: desired sterilization Patient Data Age: 27 Gender: F Height: 1.6 m Weight: 94.75 kg Last Vital Signs Temp 97.5 F L 09/20/22 06:40 Pulse 65 09/20/22 06:40 Resp 16 09/20/22 06:40 BP 116/66 09/20/22 06:40 Pulse Ox 99 09/20/22 06:40 O2 Del Method Room Air 09/20/22 06:40 Allergies Allergy/AdvReac Type Severity Reaction Status Date / Time No Known Allergies Allergy Verified 09/20/22 06:49 Home Medications Medication Instructions Recorded Confirmed Type No Home Medications 09/13/22 09/13/22 History Patient hx anesthesia problems: none Family hx anesthesia problems: none Results Review: All pre-operative results and documents have been reviewed as part of the pre-operative evaluation. [facility] Past Medical History Medical History Liver disease MTHFR gene mutation Obesity PCOS (polycystic ovarian syndrome) Suppression of menses Family History Family History Other Patient denies significant medical history Social History Social History Smoking status: Never smoker Alcohol intake: current Alcohol use details: VERY RARE Substance use: former Substance use type: marijuana Last use: >1 YEAR Lack of Transportation: No Lack of Food: Never True Current Housing: I Have Housing Concerned About Future Housing: No Difficulty Paying Gas/Electric Bills: No Difficulty Paying for Meds: No Currently Unemployed: No Education: High School Diploma/GED Difficulty w/ Childcare or Family Care: No Living arrangements: with family Occupation/Education: occupation 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 Gender identity (if verbalized by the patient): Female Sexual Orientation (if Verbalized by the Patient): Straight or Heterosexual Spiritual care concerns: No Anes - Eval Final PreProcedure Day of Procedure 07/06/23 07:58 Patient weight: obese Heart: regular rate and rhythm Lungs: clear to auscultation Airway: Mallampati scale class III Neurological: alert and oriented Last oral intake: >/= 8 hours ASA classification: III Emergent: no Anesthetic plan: proceed Anesthesia type and monitoring: general ETT and standard monitoring Results Review: All pre-operative results and documents have been reviewed as part of the pre-operative evaluation. Informed Consent: The patient's anesthetic plan and its attendant risks and benefits were discussed with the patient/family/POA. Questions were solicited and answers provided to the satisfaction of the patient/family/POA.
--- NOTE | 2022-09-20 08:28 | PM.IMHP ---
H&P: HPI History of Present Illness Date/Time: 09/20/22 08:28 27-year-old female presents for sterilization procedure. We have discussed permanence, failure rate, increased risk of ectopic and regret. She states good understanding and strongly desires to proceed with this permanent procedure. Chief Complaint: Female sterilization Review of Systems Review of Systems: All systems reviewed & are unremarkable except as noted in HPI and below PMFSH Past Medical History Medical History Liver disease MTHFR gene mutation Obesity PCOS (polycystic ovarian syndrome) Suppression of menses Family History Family History Other Patient denies significant medical history Social History Social History Smoking status: Never smoker Alcohol intake: current Alcohol use details: VERY RARE Substance use: former Substance use type: marijuana Last use: >1 YEAR Lack of Transportation: No Lack of Food: Never True Current Housing: I Have Housing Concerned About Future Housing: No Difficulty Paying Gas/Electric Bills: No Difficulty Paying for Meds: No Currently Unemployed: No Education: High School Diploma/GED Difficulty w/ Childcare or Family Care: No Living arrangements: with family Occupation/Education: occupation 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 Gender identity (if verbalized by the patient): Female Sexual Orientation (if Verbalized by the Patient): Straight or Heterosexual Spiritual care concerns: No Meds Home Medications and Allergies Home Medications Medication Instructions Recorded Confirmed Type No Home Medications 09/13/22 09/13/22 History Allergies Allergy/AdvReac Type Severity Reaction Status Date / Time No Known Allergies Allergy Verified 09/20/22 06:49 Vital Signs Vital Signs - 24 hr 09/20/22 06:40 Temperature 97.5 F L Pulse Rate 65 Respiratory Rate 16 Blood Pressure 116/66 Pulse Oximetry 99 Oxygen Delivery Room Air Exam Const: General: cooperative, healthy appearing and comfortable Resp: Effort & Inspection: normal respiratory effort Auscultation: clear to auscultation bilaterally Cardio: Rate: regular rate Rhythm: regular rhythm GI: Inspection: normal to inspection Auscultation: normal bowel sounds : External Female Exam: normal external appearance Speculum Exam - Vagina: normal appearance of the vagina Speculum Exam - Cervix: normal appearance of the cervix Bimanual exam- vagina & uterus: normal bimanual exam Bimanual Exam- Adnexa, other: normal adnexae Assessment and Plan Assessment and plan (1) Encounter for female sterilization procedure: Code(s): Z30.2 - Encounter for sterilization Status: Acute Assessment and Plan: Proceed with laparoscopic bilateral salpingectomy
--- NOTE | 2022-09-20 08:31 | WPDHPUPDATE1 ---
History and Physical Update Update Date/Time: 09/20/22 08:31 History and Physical has been reviewed, including an updated exam of the patient. There are NO changes in the patient's condition. Risks, benefits, and alternatives have been discussed and questions answered. Patient agrees to proceed with procedure.
--- NOTE | 2022-09-20 09:12 | W.PM.PROC2 ---
Procedure Note - Detailed Date of Procedure 09/20/22 Pre-op Diagnosis desired sterilization Post-op Diagnosis Same Procedure Performed Laparoscopic bilateral salpingectomy Surgeon Scout Marino MD Anesthesia General Findings Uterus tubes and ovaries without abnormality Description of Procedure Patient prepped and draped usual manner for this procedure. Periumbilical and lower quadrant incisions were made and trocars were placed under direct visualization. Visualization of the pelvis revealed findings as above. Mesial salpinx was cauterized and cut bilaterally and the tubes removed without difficulty. There was no bleeding, gas was allowed to escape, incisions were approximated using 4-0 Monocryl after the trocars removed. Patient was then sent to recovery room in stable condition. Estimated Blood Loss 10 Drains No Packing No Pathology Yes Complications No immediate complications Condition Stable Disposition PACU [facility] Billing Surgery - Charge Forward: Surgery Billing
== END 2022-09-20 10:47 | disposition home or self-care (01) ==
PROVIDERS: PCP Nurse Practitioner Family; Visit Provider Obstetrics & Gynecology
PROC: (CPT 49320; principal; 2022-09-20 08:30)
DX: Z30.2 Encounter for sterilization (principal); E72.12 Methylenetetrahydrofolate reductase deficiency; E28.2 Polycystic ovarian syndrome; E66.9 Obesity, unspecified; Z68.37 Body mass index [BMI] 37.0-37.9, adult
CPT/HCPCS: 58661; 88302; A9270; J0330; J1100; J1885; J2250; J2405; J2704; J3010; J7030; J7120

== ENCOUNTER 2022-10-14 09:07 | Emergency (ER) | payer OTHER, SELFPAY ==
[2022-10-14 09:47] VITALS: BP 127/84; PULSE 77; RESP 16; O2SAT 98
[2022-10-14 10:17] LABS: Basophils Percent Auto 0.2 % (0.2-1.2); Eosinophils Absolute Auto 0.3 K/mm3 (0-0.3); Eosinophils Percent Auto 2.5 % (0-4.4); Hematocrit 53.7 % (37.0-47.0); Immature Granulocyte Absolute 0.02 K/mm3 (0.00-0.031); Immature Granulocyte Percent A 0.2 % (0-0.5); Lymphocytes Absolute Auto 2.46 K/mm3 (0.9-3.2); Lymphocytes Percent Auto 22.1 % (18.3-44.2); Mean Corpuscular HGB Conc 31.7 g/dl (32-36); Mean Corpuscular Hemoglobin 27.8 pg (26-34); Mean Corpuscular Volume 87.7 fl (80-100); Mean Platelet Volume 9.6 fl (7.4-10.4); Monocytes Absolute Auto 0.6 K/mm3 (0.1-0.6); Monocytes Percent Auto 5.3 % (2.6-8.5); Neutrophils Absolute Auto 7.7 K/mm3 (1.3-6.7); Neutrophils Percent Auto 69.7 % (45.5-73.1); Platelet Count Result 367 k/mm3 (150-375); Red Blood Count 6.12 M/mm3 (4.2-5.4); Red Cell Distribution Width 15.9 % (11.5-14.5); White Blood Count 11.1 K/mm3 (4.5-10.0)
[2022-10-14 10:26] LABS: Appearance Urine Cloudy (Clear); Bacteria Urine None Seen /hpf; Bilirubin Urine Negative (Negative); Blood Urine Negative (Negative); Color Urine Yellow (Yellow); Glucose Urine UA Negative (Negative); Ketones Urine Negative (Negative); Leukocyte Esterase Ur Negative LEU/UL (Negative); Nitrate Urine Negative (Negative); Non Pathogenic Casts 0-2; Protein Urine Negative (Negative); RBC Urine 0-2 /hpf (0-2); Specific Grav Ur 1.025 (1.001-1.035); Squamous Epithelial Cell Urine Occasional /hpf (Few); Urobilinogen Urine 0.2 mg/dL (<2.0); WBC Urine 0-5 /hpf; pH Urine 5.5 (5.0-9.0)
[2022-10-14 10:28] LABS: Alanine Aminotransferase 82 U/L (6-35); Albumin Level 5.2 g/dL (3.5-5.1); Alkaline Phosphatase 194 U/L (38-126); Anion Gap 13 mmol/L (8-16); Aspartate Amino Transferase 53 U/L (14-36); Bilirubin,Total 0.6 mg/dL (0.2-1.3); Blood Urea Nitrogen 9 mg/dL (7-17); Calcium 10.4 mg/dL (8.4-10.2); Carbon Dioxide 23 mmol/L (22-30); Chloride 105 mmol/L (98-107); Estimated CRCL calculation 100 ml/min; Estimated Glomerular Filt Rate > 60; Glucose 86 mg/dL (65-110); Lipase 135 U/L (23-300); Potassium 3.9 mmol/L (3.4-5.0); Sodium 141 mmol/L (137-145)
[2022-10-14 11:07] LABS: Add Urine Microscopic? YES
== END 2022-10-14 11:10 | disposition left against medical advice (07) ==
PROVIDERS: Emergency Provider Emergency Medicine; PCP Nurse Practitioner Family
DX: R11.2 Nausea with vomiting, unspecified (principal)
CPT/HCPCS: 36415; 80053; 81001; 81025; 83690; 85025; 99199; A4565

== ENCOUNTER 2022-10-30 09:39 | Outpatient (CLI) | payer BC, OTHER, SELFPAY ==
[2022-10-30 10:16] LABS: Hematocrit 43.4 % (37.0-47.0); Hemoglobin 13.9 g/dL (12.0-15.0); Mean Corpuscular Hemoglobin 28.2 pg (26-34); Mean Platelet Volume 10.2 fl (7.4-10.4); Platelet Count Result 284 k/mm3 (150-375); Red Blood Count 4.93 M/mm3 (4.2-5.4); Red Cell Distribution Width 14.6 % (11.5-14.5); White Blood Count 10.3 K/mm3 (4.5-10.0)
[2022-10-30 10:29] LABS: Alanine Aminotransferase 40 U/L (6-35); Albumin Level 4.2 g/dL (3.5-5.1); Alkaline Phosphatase 108 U/L (38-126); Anion Gap 7 mmol/L (8-16); Aspartate Amino Transferase 39 U/L (14-36); Bilirubin,Total 0.5 mg/dL (0.2-1.3); Blood Urea Nitrogen 10 mg/dL (7-17); Calcium 8.6 mg/dL (8.4-10.2); Carbon Dioxide 26 mmol/L (22-30); Chloride 104 mmol/L (98-107); Cholesterol 221 mg/dL (0-200); Estimated Glomerular Filt Rate > 60; Glucose 82 mg/dL (65-110); HDL Direct 48 mg/dL; Potassium 3.9 mmol/L (3.4-5.0); Sodium 137 mmol/L (137-145); Triglycerides 76 mg/dL (<150)
[2022-10-30 10:40] LABS: LDL Cholesterol Direct 133 mg/dL
[2022-10-30 11:16] LABS: Vitamin D 25 Hydroxy 29.1 ng/mL
[2022-10-30 11:33] LABS: Folic Acid 14.5 ng/mL (2.76->20)
[2022-10-30 14:09] LABS: Hemoglobin A1C 5.1 % (<5.7)
[2022-11-02 12:32] LABS: Insulin Level Total 11.2 uIU/mL (<=19.6)
== END 2022-10-30 09:40 | disposition home or self-care (01) ==
LOC: ANHLAB 09:41
PROVIDERS: PCP Nurse Practitioner Family; Visit Provider Nurse Practitioner Family
DX: E88.81 Metabolic syndrome and other insulin resistance (principal); D50.9 Iron deficiency anemia, unspecified; E78.5 Hyperlipidemia, unspecified; E53.8 Deficiency of other specified B group vitamins; E55.9 Vitamin D deficiency, unspecified
CPT/HCPCS: 36415; 80053; 80061; 82306; 82607; 82728; 82746; 83036; 83525; 84443; 85027

== ENCOUNTER 2023-01-17 10:11 | Emergency (ER) | payer OTHER, SELFPAY ==
[2023-01-17] VITALS (13 sets, daily range): BP systolic 118–145; BP diastolic 68–105; PULSE 67–94; RESP 13–20; TEMP 36.1–36.7; O2SAT 97–100
--- NOTE | ~2023-01-17 | CT_ITS ---
EXAMINATION: CT cervical spine wo con DATE: 01/17/2023 10:35 INDICATION: Head injury. TECHNIQUE: Computed tomography (CT) of the cervical spine was performed without intravenous contrast. Automated exposure control and iterative reconstruction technique were employed. The dose-length pro duct was 470.41 mGy-cm. COMPARISON: None FINDINGS: There is 6 degrees levocurvature of cervicothoracic spine. There is kyphosis of cervical sp ine. Vertebral body heights and intervertebral disc heights are normal. At C7-T1, there is severe rig ht and mild left facet joint osteoarthritis. At C7-T1, there is mild right neural foraminal stenosis. No central canal stenosis. IMPRESSION: 1. No fracture. Reviewed, dictated and finalized at location E. IMPRESSION: 1. No fracture.
--- NOTE | ~2023-01-17 | CT_ITS ---
EXAMINATION: CT brain wo con DATE: 01/17/2023 10:35 INDICATION: Syncope. Head injury. TECHNIQUE: Computed tomography (CT) of the head was performed without intravenous contrast. The mA wa s adjusted according to patient size. Iterative reconstruction technique was employed. The dose-lengt h product was 529.67 mGy-cm. COMPARISON: None FINDINGS: There is no intracranial hemorrhage, acute infarction, or abnormal intracranial mass lesion . The ventricles are normal in size. The orbits are normal. There is mild mucosal thickening in the p aranasal sinuses. The mastoid air cells are normal. IMPRESSION: 1. Normal brain. Reviewed, dictated and finalized at location E. IMPRESSION: 1. Normal brain.
--- NOTE | ~2023-01-17 | CT_ITS ---
EXAMINATION: CTA chest PE protocol DATE: 01/17/2023 12:23 INDICATION: Chest pain, syncope. Elevated d-dimer. TECHNIQUE: Computed tomography angiography (CTA) of the chest was performed with 100 mL Omnipaque-350 intravenous contrast timed to evaluate the pulmonary arteries. Coronal maximum intensity projection 3D-reconstructions were created by the technologist. Automated exposure control and iterative reconst ruction technique were employed. Exam dose: 569.00 mGy-cm total exam DLP. COMPARISON: None. FINDINGS: There is diagnostic contrast enhancement of the pulmonary arteries and no evidence of pulmo nary embolism. No hilar or mediastinal mass lesion or lymphadenopathy. No thoracic aortic aneurysm or dissection. Heart size is within normal range. No pericardial or pleural effusion. No pulmonary infiltrate or consolidation or pulmonary mass lesion. Included skeletal structures are unremarkable. IMPRESSION: No evidence of pulmonary embolism Reviewed, dictated and finalized at Location A. Reviewed, dictated and finalized at location L.
--- NOTE | 2023-01-17 10:13 | ECG_ITS ---
Measurements Intervals [place] Rate: 77 P: 63 NE: 152 QRS: 26 QRSD: 87 T: 42 QT: 361 QTc: 409 Interpretive Statements SINUS RHYTHM WITH SINUS ARRHYTHMIA BASELINE WANDER- AVR, AVL, AVF NORMAL ECG NO PREVIOUS ECG AVAILABLE FOR COMPARISON Electronically Signed On 01-17-2023 11:20:37 CDT by Clayton Mc D.O.
--- NOTE | 2023-01-17 10:24 | ED.DIZZY ---
HPI - Dizziness General Chief Complaint: Dizziness Stated Complaint: dizzy, fainted, hit head Time Seen by Provider: 01/17/23 10:15 History of Present Illness HPI Narrative: 27-year-old female reports for evaluation for lightheadedness and syncope x2 this morning. Patient states she woke up this morning feeling lightheaded and dizzy. She got out of bed and continued to feel lightheaded. States she had 2 episodes of syncope today where she felt her heart racing, diaphoresis and experienced tunnel vision, and then woke up on the floor. States the first time when she was walking on her hallway after leaving her daughter's room the second time was after she got out of the shower. She does believe she hit her head on her left frontal scalp during the first syncope, and vomited shortly after. She also is reporting left anterior chest pain that does not radiate anywhere. She denies dyspnea, fever, cough or congestion, abdominal pain, focal numbness or weakness, diarrhea. She is also reporting a migraine for the past 2 days and describes it as a sharp stabbing pain across from the back of my head to the front of my head, which is atypical for her usual migraines. LMP approximately 2 weeks ago. Denies cardiac history or history of arrhythmias. Denies confusion or amnesia. Related Data Home Medications Medication Instructions Recorded Confirmed dulaglutide 0.75 mg/0.5 mL 0.75 mg subcut WEEKLY 10/08/22 10/08/22 subcutaneous pen injector (Trulicity) Allergies Allergy/AdvReac Type Severity Reaction Status Date / Time No Known Allergies Allergy Verified 10/08/22 09:14 Review of Systems Review of Systems: CONSTITUTIONAL: Denies fever, chills EYES: Denies visual changes, redness, or discharge. ENT: Denies rhinorrhea, congestion, sore throat, or otalgia. CARDIOVASCULAR: See HPI RESPIRATORY: Denies cough or dyspnea. GASTROINTESTINAL: Denies abdominal pain, nausea, vomiting, or diarrhea. GENITOURINARY: Denies dysuria or hematuria. SKIN: Denies rash or itching. MUSCULOSKELETAL: Denies back pain, joint pain, or myalgia. NEUROLOGIC: See HPI PSYCHIATRIC: Denies anxiety or depression. [facility] Past Medical History Medical History Liver disease MTHFR gene mutation Obesity PCOS (polycystic ovarian syndrome) Suppression of menses Surgical History Surgical History H/O bilateral salpingectomy (09/20/22) Laparoscopic bilateral salpingectomy Family History Family History Other Patient denies significant medical history Social History Social History Smoking status: Never smoker Alcohol intake: current Alcohol use details: VERY RARE Substance use: former Substance use type: marijuana Last use: >1 YEAR Lack of Transportation: No Lack of Food: Never True Current Housing: I Have Housing Concerned About Future Housing: No Difficulty Paying Gas/Electric Bills: No Difficulty Paying for Meds: No Currently Unemployed: No Education: High School Diploma/GED Difficulty w/ Childcare or Family Care: No Living arrangements: with family Occupation/Education: occupation 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 Patient resting comfortably in exam bed. She is pleasant and conversational. HEAD: Normocephalic EYES: PERRLA, EOMI ENT: Nares clear. Mucous membranes moist. Oropharynx without tonsillar hypertrophy exudate or other lesions. Bilateral TMs are stone nonbulging NECK: Supple. No midline cervical spinous tenderness, step-of
[2023-01-17] MEDS: SODIUM CHLORIDE 0.9% IV 1,000 ML 999 ML IV CONT (10:50)
[2023-01-17 11:02] LABS: Basophils Percent Auto 0.2 % (0.2-1.2); Eosinophils Absolute Auto 0.4 K/mm3 (0-0.3); Eosinophils Percent Auto 4.3 % (0-4.4); Hematocrit 46.1 % (37.0-47.0); Hemoglobin 14.9 g/dL (12.0-15.0); Immature Granulocyte Absolute 0.01 K/mm3 (0.00-0.031); Immature Granulocyte Percent A 0.1 % (0-0.5); Lymphocytes Absolute Auto 2.98 K/mm3 (0.9-3.2); Lymphocytes Percent Auto 35.6 % (18.3-44.2); Mean Corpuscular HGB Conc 32.3 g/dl (32-36); Mean Corpuscular Hemoglobin 29.2 pg (26-34); Mean Corpuscular Volume 90.4 fl (80-100); Mean Platelet Volume 9.8 fl (7.4-10.4); Monocytes Absolute Auto 0.5 K/mm3 (0.1-0.6); Monocytes Percent Auto 6.1 % (2.6-8.5); Neutrophils Absolute Auto 4.5 K/mm3 (1.3-6.7); Neutrophils Percent Auto 53.7 % (45.5-73.1); Platelet Count Result 359 k/mm3 (150-375); Red Cell Distribution Width 13.6 % (11.5-14.5); White Blood Count 8.4 K/mm3 (4.5-10.0)
[2023-01-17 11:07] LABS: Appearance Urine Clear (Clear); Bilirubin Urine Negative (Negative); Blood Urine Negative (Negative); Color Urine Yellow (Yellow); Glucose Urine UA Negative (Negative); Ketones Urine Negative (Negative); Leukocyte Esterase Ur Negative LEU/UL (Negative); Nitrate Urine Negative (Negative); Protein Urine Negative (Negative); Specific Grav Ur 1.025 (1.001-1.035); Urobilinogen Urine 0.2 mg/dL (<2.0)
[2023-01-17 11:13] LABS: Prothrombin Time 13.2 Seconds (11.1-14.7)
[2023-01-17 11:14] LABS: Partial Thromboplastin Time 25.5 SECONDS (22.3-36.8)
[2023-01-17 11:20] LABS: Add Urine Microscopic? NO
[2023-01-17] MEDS: KETOROLAC 30 MG/ML VIAL (*BKC) IV PUSH (11:28)
[2023-01-17] MEDS: diphenhydrAMINE HCl INJ 50 MG/ML VIAL 25 MG IV PUSH (11:29)
[2023-01-17] MEDS: PROCHLORPERAZINE EDISYLATE 10 MG/2 ML VIAL IV PUSH (11:31)
[2023-01-17 11:51] LABS: Alanine Aminotransferase 15 U/L (6-35); Albumin Level 3.8 g/dL (3.5-5.1); Alkaline Phosphatase 79 U/L (38-126); Anion Gap 5 mmol/L (8-16); Aspartate Amino Transferase 22 U/L (14-36); Bilirubin,Total 0.5 mg/dL (0.2-1.3); Blood Urea Nitrogen 6 mg/dL (7-17); Calcium 8.4 mg/dL (8.4-10.2); Carbon Dioxide 22 mmol/L (22-30); Chloride 109 mmol/L (98-107); Estimated CRCL calculation 113 ml/min; Estimated Glomerular Filt Rate > 60; Glucose 73 mg/dL (65-110); Potassium 3.7 mmol/L (3.4-5.0); Sodium 136 mmol/L (137-145)
[2023-01-17 11:52] LABS: Lipase 73 U/L (23-300)
[2023-01-17 11:52] LABS: D Dimer 0.63 ug/mL (<0.48)
[2023-01-17 12:03] LABS: NT Pro B Type Natriuretic Pept < 20 pg/mL (19.9-100); Troponin I < 0.012 ng/mL (0.000-0.034)
[2023-01-17 14:04] LABS: Troponin I < 0.012 ng/mL (0.000-0.034)
== END 2023-01-17 14:44 | disposition home or self-care (01) ==
PROVIDERS: Family Medicine; Emergency Provider Physician Assistant; PCP Nurse Practitioner Family
DX: R55 Syncope and collapse (principal); S09.90XA Unspecified injury of head, initial encounter; K76.9 Liver disease, unspecified; E28.2 Polycystic ovarian syndrome; E66.9 Obesity, unspecified; Z68.38 Body mass index [BMI] 38.0-38.9, adult; Z90.79 Acquired absence of other genital organ(s); W18.39XA Other fall on same level, initial encounter
CPT/HCPCS: 36415; 70450; 71275; 72125; 80053; 81003; 81025; 83690; 83735; 83880; 84484; 85025; 85380; 85610; 85730; 93005; 96361; 96374; 96375; 99284; J0780; J1200; J1885; J7030; Q9967

== ENCOUNTER 2023-04-08 16:47 | Emergency (ER) | payer OTHER, SELFPAY ==
[2023-04-08 16:58] VITALS: BP 111/79; PULSE 91; RESP 16; TEMP 36.6; O2SAT 100
[2023-04-08 16:59] VITALS: BP 111/79; PULSE 91; RESP 16; TEMP 36.6; O2SAT 100
--- NOTE | 2023-04-08 17:03 | ED.URI ---
HPI - URI/Sore Throat General Chief Complaint: Upper Respiratory Infection Stated Complaint: Congestion;Vomiting Time Seen by Provider: 04/08/23 17:03 Source: patient Mode of arrival: ambulatory Limitations: no limitations History of Present Illness HPI Narrative: 28-year-old female presents with complaint of sinus pressure, nasal congestion, postnasal drainage, intermittent nausea vomiting, fatigue for the past 3 days. Was not able to go to work today and needs work note. Has Zofran at home to treat nausea. Taking Sudafed for sinus pressure. Concern for influenza , does not want to spread to her 8-month-old child. All systems reviewed and negative except as noted above. Related Data Home Medications Medication Instructions Recorded Confirmed dulaglutide 0.75 mg/0.5 mL 0.75 mg subcut WEEKLY 10/08/22 04/08/23 subcutaneous pen injector (Trulicity) dextroamphetamine-amphetamine 30 30 mg PO DAILY 02/28/23 04/08/23 mg tablet (Adderall) lamotrigine 150 mg tablet 150 mg PO DAILY 02/28/23 04/08/23 topiramate 25 mg tablet 25 mg PO DAILY 02/28/23 04/08/23 sofosbuvir 400 mg-velpatasvir 100 1 tablet PO DIRECTED 04/08/23 04/08/23 mg tablet ubrogepant 50 mg tablet (Ubrelvy) 50 mg PO DIRECTED 04/08/23 04/08/23 Allergies Allergy/AdvReac Type Severity Reaction Status Date / Time No Known Allergies Allergy Verified 04/08/23 16:53 Review of Systems Review of Systems: CONSTITUTIONAL: Denies fever, chills, or sweats. Reports fatigue. EYES: Denies visual changes, redness, or discharge. ENT: Reports rhinorrhea, congestion, sinus pressure, postnasal drainage. Denies sore throat, or otalgia. CARDIOVASCULAR: Denies chest pain, palpitations, or edema. RESPIRATORY: Denies cough or dyspnea. GASTROINTESTINAL: Denies abdominal pain. Reports nausea, vomiting. Denies diarrhea. GENITOURINARY: Denies dysuria or hematuria. SKIN: Denies rash or itching. MUSCULOSKELETAL: Denies back pain, joint pain, or myalgia. NEUROLOGIC: Denies headache, numbness, or weakness. PSYCHIATRIC: Denies anxiety or depression. All other systems reviewed are negative, except as documented in HPI. [facility] Past Medical History Medical History Liver disease MTHFR gene mutation Obesity PCOS (polycystic ovarian syndrome) Suppression of menses Surgical History Surgical History H/O bilateral salpingectomy (09/20/22) Laparoscopic bilateral salpingectomy Family History Family History Other Patient denies significant medical history Social History Social History Smoking status: Never smoker Alcohol intake: current Alcohol use details: VERY RARE Substance use: former Substance use type: marijuana Last use: >1 YEAR Lack of Transportation: No Lack of Food: Never True Current Housing: I Have Housing Concerned About Future Housing: No Difficulty Paying Gas/Electric Bills: No Difficulty Paying for Meds: No Currently Unemployed: No Education: High School Diploma/GED Difficulty w/ Childcare or Family Care: No Living arrangements: with family Occupation/Education: occupation 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 There is no relevant family history pertinent to the presenting complaint. Exam Narrative: GENERAL: This is a well-nourished, well-developed patient, in no apparent distress. HEAD: normocephalic, atraumatic. EYES: PERRL. Sclera clear/white. Vision is grossly intact. EARS: External ears normal, a
== END 2023-04-08 17:20 | disposition home or self-care (01) ==
PROVIDERS: Emergency Provider Nurse Practitioner Family
DX: J01.90 Acute sinusitis, unspecified (principal); Z20.822 Contact with and (suspected) exposure to COVID-19; E72.12 Methylenetetrahydrofolate reductase deficiency; E66.9 Obesity, unspecified; Z68.37 Body mass index [BMI] 37.0-37.9, adult; E28.2 Polycystic ovarian syndrome
CPT/HCPCS: 87426; 87804; 99213; G0463

== ENCOUNTER 2023-04-27 12:33 | Emergency (ER) | payer OTHER, SELFPAY ==
--- NOTE | ~2023-04-27 | XR_ITS ---
EXAMINATION: XR chest 2V DATE: 04/27/2023 13:07 INDICATION: Chest pain TECHNIQUE: PA and lateral views of the chest are obtained. COMPARISON: None available FINDINGS: The lungs are free of acute opacities. No pleural effusion or pneumothorax. The cardiomedia stinal silhouette is normal. The visualized bones and soft tissues are unremarkable. IMPRESSION: 1. No acute cardiopulmonary abnormality. Reviewed, dictated and finalized at location F. A RELATIONS INTERN
[2023-04-27 12:40] VITALS: BP 117/72; PULSE 87; RESP 18; TEMP 36.2; O2SAT 100
--- NOTE | 2023-04-27 12:54 | ECG_ITS ---
Measurements Intervals [place] Rate: 87 P: -4 DE: 154 QRS: 33 QRSD: 85 T: 19 QT: 333 QTc: 402 Interpretive Statements SINUS RHYTHM NORMAL ECG COMPARED TO ECG 01/17/2023 10:39:22 NO SIGNIFICANT CHANGES Electronically Signed On 04-27-2023 13:23:21 [employer]OX WORK[employer] by Álvaro Kinsey M.D.
--- NOTE | 2023-04-27 13:01 | ED.GENADULT ---
HPI - General Adult General Chief complaint: Chest Pain Stated complaint: chest pain,hurts to breath Time Seen by Provider: 04/27/23 12:47 Source: patient and RN notes reviewed Mode of arrival: ambulatory Limitations: no limitations History of Present Illness HPI narrative: Patient presents today complaining of left chest tightness x3 days that radiates to the left shoulder. She also reports pain in her left lateral chest that is exacerbated with deep breath. This has been worsening since onset. She also reports some tingling to her upper arm. Denies shortness of breath, abdominal pain, weakness, headache. She currently rates her pain 6/10 and has tried some ibuprofen without relief. Denies cough congestion, or any other URI symptoms. Patient was seen at [facility] on 04/08/2023 and was diagnosed with a viral URI, but states these symptoms have resolved. Related Data Home Medications Medication Instructions Recorded Confirmed dextroamphetamine-amphetamine 30 30 mg PO DAILY 02/28/23 04/27/23 mg tablet (Adderall) lamotrigine 150 mg tablet 150 mg PO DAILY 02/28/23 04/27/23 topiramate 25 mg tablet 25 mg PO DAILY 02/28/23 04/27/23 Allergies Allergy/AdvReac Type Severity Reaction Status Date / Time No Known Allergies Allergy Verified 04/27/23 12:37 Review of Systems Review of Systems: CONSTITUTIONAL: Denies body aches, fever, chills, or sweats. EYES: Denies visual changes, redness, or discharge. ENT: Denies rhinorrhea, congestion, sore throat, or otalgia. CARDIOVASCULAR: Denies palpitations, or edema.+ chest pain RESPIRATORY: Denies cough or dyspnea. GASTROINTESTINAL: Denies abdominal pain, nausea, vomiting, or diarrhea. GENITOURINARY: Denies dysuria or hematuria. SKIN: Denies rash, itching, or wounds. MUSCULOSKELETAL: Denies back pain, joint pain, or myalgia. NEUROLOGIC: Denies headache, numbness, or weakness.+ tingling to left arm PSYCH: Denies depression or anxiety. [facility] Past Medical History Medical History Liver disease MTHFR gene mutation Obesity PCOS (polycystic ovarian syndrome) Suppression of menses Surgical History Surgical History H/O bilateral salpingectomy (09/20/22) Laparoscopic bilateral salpingectomy Family History Family History Other Patient denies significant medical history Social History Social History Smoking status: Never smoker Alcohol intake: current Alcohol use details: VERY RARE Substance use: former Substance use type: marijuana Last use: >1 YEAR Lack of Transportation: No Lack of Food: Never True Current Housing: I Have Housing Concerned About Future Housing: No Difficulty Paying Gas/Electric Bills: No Difficulty Paying for Meds: No Currently Unemployed: No Education: High School Diploma/GED Difficulty w/ Childcare or Family Care: No Living arrangements: with family Occupation/Education: occupation 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 Please see nursing chart for further information. There is no relevant family history pertinent to the presenting complaint Exam Narrative: GENERAL: Well-appearing, well-nourished, and in no acute distress. HEAD: Normocephalic, atraumatic. EYES: EOMI. No redness or drainage. Conjunctivae normal. ENT: Mucous membranes pink and moist. NECK: Normal AROM. Supple. No lymphadenopathy. CHEST: No respiratory distress. Clear to au
== END 2023-04-27 13:33 | disposition left against medical advice (07) ==
PROVIDERS: Emergency Provider Nurse Practitioner
DX: R07.89 Other chest pain (principal); E72.12 Methylenetetrahydrofolate reductase deficiency; E66.9 Obesity, unspecified; Z68.37 Body mass index [BMI] 37.0-37.9, adult; E28.2 Polycystic ovarian syndrome; K76.9 Liver disease, unspecified
CPT/HCPCS: 71046; 93005; 99213; G0463

== ENCOUNTER 2023-06-19 08:51 | Outpatient (CLI) | payer BC, OTHER, SELFPAY ==
[2023-06-19 09:04] LABS: Hematocrit 46.2 % (37.0-47.0); Hemoglobin 14.9 g/dL (12.0-15.0); Mean Corpuscular HGB Conc 32.3 g/dl (32-36); Mean Corpuscular Hemoglobin 29.6 pg (26-34); Mean Corpuscular Volume 91.8 fl (80-100); Mean Platelet Volume 9.9 fl (7.4-10.4); Platelet Count Result 328 k/mm3 (150-375); Red Blood Count 5.03 M/mm3 (4.2-5.4); Red Cell Distribution Width 13.5 % (11.5-14.5); White Blood Count 9.4 K/mm3 (4.5-10.0)
[2023-06-19 09:21] LABS: Alanine Aminotransferase 12 U/L (6-35); Albumin Level 4.2 g/dL (3.5-5.1); Alkaline Phosphatase 83 U/L (38-126); Anion Gap 3 mmol/L (4-12); Aspartate Amino Transferase 25 U/L (14-36); Bilirubin,Total 0.5 mg/dL (0.2-1.3); Blood Urea Nitrogen 11 mg/dL (7-17); Calcium 9.1 mg/dL (8.4-10.2); Carbon Dioxide 28 mmol/L (22-30); Chloride 107 mmol/L (98-107); Cholesterol 206 mg/dL (0-200); Estimated Glomerular Filt Rate > 60; Glucose 77 mg/dL (65-110); HDL Direct 56 mg/dL; Potassium 4.2 mmol/L (3.4-5.0); Sodium 138 mmol/L (137-145); Triglycerides 55 mg/dL (<150)
[2023-06-19 09:32] LABS: LDL Cholesterol Direct 123 mg/dL
[2023-06-19 09:49] LABS: Thyroid Stimulating Hormone 0.831 uIU/mL (0.465-4.680)
== END 2023-06-19 08:52 | disposition home or self-care (01) ==
LOC: ANHLAB 08:52
PROVIDERS: PCP Family Medicine; Visit Provider Family Medicine
DX: E66.9 Obesity, unspecified (principal); Z79.899 Other long term (current) drug therapy
CPT/HCPCS: 36415; 80053; 80061; 84443; 85027

== ENCOUNTER 2023-08-04 09:54 | Emergency (ER) | payer OTHER, SELFPAY ==
--- NOTE | 2023-08-04 09:55 | ED.NAVMDI ---
HPI - Nausea/Vomiting/Diarrhea General Chief complaint: Nausea/Vomiting/Diarrhea Stated complaint: Vomiting Time Seen by Provider: 08/04/23 09:55 Source: patient Mode of arrival: ambulatory Limitations: no limitations History of Present Illness HPI Narrative: Fanny is a 28-year-old female patient presenting to the clinic today with complaints of upper abdominal discomfort, nausea, and vomiting for the past couple weeks. No one else at home has had the symptoms. She reports that she is not having vomiting every day but when she is vomiting she vomits multiple times per day. She has vomited twice this morning. Is reporting swell fair burps. Takes Trulicity and has had an increase in this medication in May. She denies any excessive marijuana use. Denies -history tubal ligation. Went to the ED at [place] and had ultrasound, CT scan, and blood work completed at that time. She reports that nothing was found on the ultrasound or CT scan. 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 No history of GERD or stomach ulcers. Denies any fevers, chills, body aches, blood in her emesis. Related Data Home Medications Medication Instructions Recorded Confirmed dextroamphetamine-amphetamine 30 30 mg PO DAILY 02/28/23 08/04/23 mg tablet (Adderall) dextroamphetamine-amphetamine ER 10 mg PO DAILY 06/17/23 08/04/23 10 mg 24hr capsule,extend release (Adderall XR) lamotrigine 200 mg tablet 200 mg PO DAILY 08/04/23 08/04/23 ubrogepant 50 mg tablet (Ubrelvy) 50 mg PO PRN PRN Headache 08/04/23 08/04/23 Allergies Allergy/AdvReac Type Severity Reaction Status Date / Time sumatriptan Allergy Intermediate Rash Verified 08/04/23 10:05 rizatriptan Allergy Mild Rash Verified 08/04/23 10:05 Review of Systems Review of Systems: Pertinent positives per HPI. Patient denies any fever, chills, rash, headache, visual changes, dizziness, cough, runny nose, sore throat, shortness of breath, chest pain, palpitations, nausea, vomiting, diarrhea, constipation, abdominal pain, or any urinary issues. [facility] Past Medical History Medical History Liver disease MTHFR gene mutation Obesity PCOS (polycystic ovarian syndrome) Suppression of menses Surgical History Surgical History H/O bilateral salpingectomy (09/20/22) Laparoscopic bilateral salpingectomy Family History Family History Other Patient denies significant medical history Social History Social History Smoking status: Never smoker Alcohol intake: current Alcohol use details: VERY RARE Substance use: current Substance use type: marijuana Last use: >1 YEAR Lack of Transportation: No Lack of Food: Never True Current Housing: I Have Housing Concerned About Future Housing: No Difficulty Paying Gas/Electric Bills: No Difficulty Paying for Meds: No Currently Unemployed: No Education: High School Diploma/GED Difficulty w/ Childcare or Family Care: No Living arrangements: with family Occupation/Education: occupation 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 There is no relevant family history pertinent to the patient complaint. Exam Narrative: General: Well-developed, well nourished, in no apparent distress. Head: Normocephalic, atraumatic. Cardio: Regular rate and rhythm, s1 and s2 normal, no m
[2023-08-04 10:05] VITALS: BP 107/95; PULSE 82; RESP 16; TEMP 36.6; O2SAT 100
[2023-08-04 10:10] VITALS: BP 107/95; PULSE 82; RESP 16; TEMP 36.6; O2SAT 100
== END 2023-08-04 10:41 | disposition home or self-care (01) ==
PROVIDERS: Emergency Provider Nurse Practitioner Family; PCP Family Medicine
DX: R10.11 Right upper quadrant pain (principal); R10.12 Left upper quadrant pain; R11.2 Nausea with vomiting, unspecified; K76.9 Liver disease, unspecified; E72.12 Methylenetetrahydrofolate reductase deficiency; E66.9 Obesity, unspecified; Z68.33 Body mass index [BMI] 33.0-33.9, adult; E28.2 Polycystic ovarian syndrome
CPT/HCPCS: 99213; G0463

== ENCOUNTER 2023-08-06 13:32 | Outpatient (CLI) | payer OTHER, SELFPAY ==
[2023-08-08 12:54] LABS: Hepatitis C RNA, Quant PCR <15 NOT DETECTED IU/mL (NOT DETECTED)
== END 2023-08-06 13:33 | disposition home or self-care (01) ==
LOC: ANHLAB 13:33
PROVIDERS: PCP Family Medicine; Visit Provider Nurse Practitioner Family
DX: B19.20 Unspecified viral hepatitis C without hepatic coma (principal)
CPT/HCPCS: 36415; 87522

== ENCOUNTER 2023-08-15 08:43 | Emergency (ER) | payer OTHER, SELFPAY ==
--- NOTE | ~2023-08-15 | CT_ITS ---
EXAMINATION: CT abdomen pelvis w con DATE: 08/15/2023 10:34 INDICATION: Abdominal pain. Diarrhea. Vomiting. TECHNIQUE: Computed tomography (CT) of the abdomen and pelvis was performed with 100 mL Omnipaque 350 intravenous contrast. Automated exposure control and iterative reconstruction technique were employe d. The dose-length product was 708.31 mGy-cm. COMPARISON: Chest CT 01/17/2023 FINDINGS: The visualized portions of the lung bases are clear without pneumonia or pleural effusion. The heart size is normal. No pericardial effusion. The liver, gallbladder, spleen, pancreas, adrenal glands, and kidneys are normal. There are no dilated loops of bowel. The appendix is normal. There ar e no pathologically enlarged lymph nodes. There is no free intraperitoneal fluid. There is an umbilic al hernia containing fat. There is severe degenerative disc disease at L2-L3 and mild spondylosis at other levels. IMPRESSION: 1. Umbilical hernia containing fat. Reviewed, dictated and finalized at location A.
[2023-08-15 08:52] VITALS: BP 127/82; PULSE 72; RESP 15; TEMP 36.7; O2SAT 100
[2023-08-15 09:40] LABS: Basophils Percent Auto 0.1 % (0.2-1.2); Eosinophils Absolute Auto 1.4 K/mm3 (0-0.3); Eosinophils Percent Auto 14.2 % (0-4.4); Hematocrit 47.4 % (37.0-47.0); Hemoglobin 15.8 g/dL (12.0-15.0); Immature Granulocyte Absolute 0.01 K/mm3 (0.00-0.031); Immature Granulocyte Percent A 0.1 % (0-0.5); Lymphocytes Absolute Auto 3.07 K/mm3 (0.9-3.2); Lymphocytes Percent Auto 32.2 % (18.3-44.2); Mean Corpuscular HGB Conc 33.3 g/dl (32-36); Mean Corpuscular Hemoglobin 30.1 pg (26-34); Mean Corpuscular Volume 90.3 fl (80-100); Mean Platelet Volume 10.9 fl (7.4-10.4); Monocytes Absolute Auto 0.5 K/mm3 (0.1-0.6); Monocytes Percent Auto 5.6 % (2.6-8.5); Neutrophils Absolute Auto 4.6 K/mm3 (1.3-6.7); Neutrophils Percent Auto 47.8 % (45.5-73.1); Platelet Count Result 279 k/mm3 (150-375); Red Blood Count 5.25 M/mm3 (4.2-5.4); Red Cell Distribution Width 13.5 % (11.5-14.5); White Blood Count 9.5 K/mm3 (4.5-10.0)
[2023-08-15 09:46] LABS: Appearance Urine Clear (Clear); Bacteria Urine None Seen /hpf; Bilirubin Urine Negative (Negative); Blood Urine Non-Hemolyzed Trace (Negative); Color Urine Yellow (Yellow); Glucose Urine UA Negative (Negative); Ketones Urine 2+ mg/dL (Negative); Leukocyte Esterase Ur Negative LEU/UL (Negative); Nitrate Urine Negative (Negative); Non Pathogenic Casts 0-2; Protein Urine Negative (Negative); RBC Urine 0-2 /hpf (0-2); Squamous Epithelial Cell Urine Occasional /hpf (Few); WBC Urine 0-5 /hpf (0-3); pH Urine 6.5 (5.0-9.0)
[2023-08-15 09:48] LABS: Add Urine Microscopic? YES
[2023-08-15 09:52] LABS: Alanine Aminotransferase 12 U/L (6-35); Albumin Level 4.3 g/dL (3.5-5.1); Alkaline Phosphatase 99 U/L (38-126); Anion Gap 8 mmol/L (4-12); Aspartate Amino Transferase 20 U/L (14-36); Bilirubin,Total 0.6 mg/dL (0.2-1.3); Blood Urea Nitrogen 5 mg/dL (7-17); Calcium 8.7 mg/dL (8.4-10.2); Carbon Dioxide 25 mmol/L (22-30); Chloride 105 mmol/L (98-107); Estimated CRCL calculation 96 ml/min; Estimated Glomerular Filt Rate > 60; Glucose 82 mg/dL (65-110); Lipase 115 U/L (23-300); Potassium 3.4 mmol/L (3.4-5.0); Sodium 138 mmol/L (137-145)
[2023-08-15 10:05] VITALS: BP 127/79; PULSE 68
[2023-08-15 10:08] VITALS: BP 130/93; PULSE 82
[2023-08-15] MEDS: FAMOTIDINE 20 MG/2 ML VIAL IV PUSH (10:37)
[2023-08-15] MEDS: SODIUM CHLORIDE 0.9% IV 1,000 ML 999 ML IV CONT (10:37)
[2023-08-15] MEDS: ONDANSETRON INJ 4 MG/2 ML VIAL IV PUSH (10:38)
--- NOTE | 2023-08-15 10:39 | ED.NAVMDI ---
HPI - Nausea/Vomiting/Diarrhea General Chief complaint: Nausea/Vomiting/Diarrhea Stated complaint: Dehydration Time Seen by Provider: 08/15/23 09:17 Source: patient Mode of arrival: ambulatory Limitations: no limitations History of Present Illness HPI Narrative: This is a 28-year-old female that presents to the emergency department for abdominal pain and diarrhea. Ongoing intermittently over the last 4 weeks. Reports since last night she had multiple episodes of diarrhea. Also reports some nausea and vomiting. She has seen GI for this issue. Is scheduled for endoscopy, but this is not until September. Denies fevers or dysuria. Related Data Home Medications Medication Instructions Recorded Confirmed dextroamphetamine-amphetamine 30 30 mg PO DAILY 02/28/23 08/06/23 mg tablet (Adderall) dextroamphetamine-amphetamine ER 10 mg PO DAILY 06/17/23 08/06/23 10 mg 24hr capsule,extend release (Adderall XR) lamotrigine 200 mg tablet 200 mg PO DAILY 08/04/23 08/06/23 ubrogepant 50 mg tablet (Ubrelvy) 50 mg PO PRN PRN Headache 08/04/23 08/06/23 Allergies Allergy/AdvReac Type Severity Reaction Status Date / Time sumatriptan Allergy Intermediate Rash Verified 08/06/23 12:55 rizatriptan Allergy Mild Rash Verified 08/06/23 12:55 Review of Systems Review of Systems: CONSTITUTIONAL: Denies fever GASTROINTESTINAL: Reports abdominal pain, nausea, vomiting, and diarrhea. GENITOURINARY: Denies dysuria All systems reviewed & are unremarkable except as noted in HPI and below PMFSH Past Medical History Medical History Liver disease MTHFR gene mutation Obesity PCOS (polycystic ovarian syndrome) Suppression of menses Surgical History Surgical History H/O bilateral salpingectomy (09/20/22) Laparoscopic bilateral salpingectomy Family History Family History Other Patient denies significant medical history Social History Social History Smoking status: Never smoker Alcohol intake: current Alcohol use details: VERY RARE Substance use: current Substance use type: marijuana Last use: >1 YEAR Lack of Transportation: No Lack of Food: Never True Current Housing: I Have Housing Concerned About Future Housing: No Difficulty Paying Gas/Electric Bills: No Difficulty Paying for Meds: No Currently Unemployed: No Education: High School Diploma/GED Difficulty w/ Childcare or Family Care: No Living arrangements: with family Occupation/Education: occupation 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 HEAD: Normocephalic, atraumatic. EYES: EOMI. CHEST: Clear to auscultation. No respiratory distress. No wheezes rales or rhonchi HEART: Regular rate and rhythm. No murmur heard. Normal peripheral pulses. ABDOMEN: Soft, nondistended, normal active bowel sounds. Mild tenderness to palpation in the epigastrium, without guarding EXTREMITIES: Normal range of motion. No edema. SKIN: Warm, dry, no rash. NEURO: No focal deficits. Alert and oriented x3. PSYCH: Normal mood and affect Course Course Emergency Course: patient updated on her workup and agrees with plan of care. Tolerating p.o. challenge Vital Signs Vital signs: Vital Signs Temperature 98.0 F 08/15/23 08:52 Pulse Rate 72 08/15/23 08:52 Respiratory Rate 15 08/15/23 08:52 Blood Pressure 127/82 08/15/23 08:52 Pulse Oximetry 100 08/15/23 08:52 Oxygen Delivery Room Air 08/15/23 08:52 Temperature 98.0 F 08/15/23 08:52 Pulse Rate
[2023-08-15 13:00] VITALS: BP 122/75; PULSE 78; RESP 16; O2SAT 99
== END 2023-08-15 13:14 | disposition home or self-care (01) ==
PROVIDERS: Emergency Provider Physician Assistant; PCP Family Medicine
DX: R19.7 Diarrhea, unspecified (principal); K76.9 Liver disease, unspecified; E28.2 Polycystic ovarian syndrome; E66.9 Obesity, unspecified; Z68.33 Body mass index [BMI] 33.0-33.9, adult; Z90.79 Acquired absence of other genital organ(s); K42.9 Umbilical hernia without obstruction or gangrene
CPT/HCPCS: 36415; 74177; 80053; 81001; 81025; 83690; 85025; 96374; 96375; 99284; J2405; J7030; Q9967

== ENCOUNTER 2023-09-09 13:08 | Outpatient (CLI) | payer OTHER, SELFPAY ==
[2023-09-14 20:03] LABS: Calprotectin, Stool 16 mcg/g
[2023-09-17 22:13] LABS: Pancreatic Elastase, Stool >500 mcg/g
== END 2023-09-09 13:09 | disposition home or self-care (01) ==
LOC: ANHLAB 13:09
PROVIDERS: PCP Family Medicine; Visit Provider Nurse Practitioner Family
DX: R19.7 Diarrhea, unspecified (principal)
CPT/HCPCS: 82653; 83993

== ENCOUNTER 2023-09-11 07:56 | Outpatient (CLI) | payer OTHER, SELFPAY ==
--- NOTE | ~2023-09-11 | US_ITS ---
Limited ABDOMINAL ULTRASOUND Ordering provider: Niki Jones APRN History: . K76.0 - Fatty (change of) liver, not elsewhere classified . Comparison: June 11, 2022 FINDINGS: LIVER: Echogenic area is seen in the left lobe measuring 0.7 x 0.6 x 0.6 cm most likely hemangioma. F ollow-up advised. Otherwise, Normal size and echotexture. No focal hepatic lesions or perihepatic flu id collections are identified. Normal flow of the portal vein. GALLBLADDER: Unremarkable. No evidence for stones, sludge, gallbladder wall thickening or pericholecy stic fluid collections. The wall measures 0.2 cm. A negative sonographic Milligan's sign was noted. BILIARY DUCTS: No evidence for intra or extrahepatic biliary dilation. Common bile duct measures 2.6 mm in diameter which is within normal limits. PANCREAS: Not well demonstrated. UPPER ABDOMINAL AORTA: Normal in caliber. IVC: Patent. FREE FLUID: None. IMPRESSION: 1. Echogenic lesion in the left lobe of the liver most likely hemangioma. Follow-up advised. Otherwis e, Unremarkable limited ultrasound of the abdomen. Reviewed, dictated and finalized at location A. IMPRESSION: 1. Echogenic lesion in the left lobe of the liver most likely hemangioma. Follo w-up advised. Otherwise, Unremarkable limited ultrasound of the abdomen.
[2023-09-11 09:35] LABS: Basophils Percent Auto 0.2 % (0.2-1.2); Eosinophils Absolute Auto 0.7 K/mm3 (0-0.3); Eosinophils Percent Auto 7.3 % (0-4.4); Hematocrit 47.6 % (37.0-47.0); Hemoglobin 15.2 g/dL (12.0-15.0); Immature Granulocyte Absolute 0.01 K/mm3 (0.00-0.031); Immature Granulocyte Percent A 0.1 % (0-0.5); Lymphocytes Absolute Auto 2.57 K/mm3 (0.9-3.2); Lymphocytes Percent Auto 27.6 % (18.3-44.2); Mean Corpuscular HGB Conc 31.9 g/dl (32-36); Mean Corpuscular Hemoglobin 29.9 pg (26-34); Mean Corpuscular Volume 93.5 fl (80-100); Mean Platelet Volume 10.5 fl (7.4-10.4); Monocytes Absolute Auto 0.5 K/mm3 (0.1-0.6); Monocytes Percent Auto 4.9 % (2.6-8.5); Neutrophils Absolute Auto 5.6 K/mm3 (1.3-6.7); Neutrophils Percent Auto 59.9 % (45.5-73.1); Platelet Count Result 315 k/mm3 (150-375); Red Blood Count 5.09 M/mm3 (4.2-5.4); Red Cell Distribution Width 13.5 % (11.5-14.5); White Blood Count 9.3 K/mm3 (4.5-10.0)
[2023-09-11 09:46] LABS: Alanine Aminotransferase 12 U/L (6-35); Albumin Level 4.4 g/dL (3.5-5.1); Alkaline Phosphatase 77 U/L (38-126); Anion Gap 7 mmol/L (4-12); Aspartate Amino Transferase 21 U/L (14-36); Bilirubin,Total 0.6 mg/dL (0.2-1.3); Blood Urea Nitrogen 9 mg/dL (7-17); Carbon Dioxide 26 mmol/L (22-30); Chloride 106 mmol/L (98-107); Cholesterol 195 mg/dL (0-200); Estimated Glomerular Filt Rate > 60; Glucose 84 mg/dL (65-110); HDL Direct 58 mg/dL; Potassium 4.2 mmol/L (3.4-5.0); Sodium 139 mmol/L (137-145); Triglycerides 56 mg/dL (<150)
[2023-09-11 09:47] LABS: Hemoglobin A1C 4.8 % (<5.7)
[2023-09-11 09:57] LABS: LDL Cholesterol Direct 108 mg/dL
[2023-09-11 10:16] LABS: Thyroid Stimulating Hormone 0.614 uIU/mL (0.465-4.680)
[2023-09-11 10:18] LABS: Vitamin D 25 Hydroxy 38.9 ng/mL
== END 2023-09-11 07:57 | disposition home or self-care (01) ==
LOC: ANHIMG 07:57
PROVIDERS: PCP Family Medicine; Referring Provider Nurse Practitioner; Visit Provider Nurse Practitioner Family
DX: K76.0 Fatty (change of) liver, not elsewhere classified (principal); R82.4 Acetonuria; Z00.00 Encounter for general adult medical examination without abnormal findings; B19.20 Unspecified viral hepatitis C without hepatic coma
CPT/HCPCS: 36415; 76705; 80053; 80061; 82306; 83036; 84443; 85025

== ENCOUNTER 2023-09-16 02:29 | Day surgery (SDC) | payer OTHER, SELFPAY ==
[2023-09-10 15:30] VITALS: BMI 33.7
[2023-09-16 12:18] VITALS: BP 120/75; PULSE 63; RESP 17; TEMP 36.2; O2SAT 100
--- NOTE | 2023-09-16 12:47 | PM.HPGS ---
History of Present Illness History of Present Illness Consent: Risks, benefits, and alternatives have been discussed and questions answered. Patient agrees to proceed with procedure. Chief complaint: Melena, Eructation Narrative: Fanny Connor is a 28 year old female with nausea, diarrhea is better. Never had EGD. Review of Systems Review of Systems: All systems reviewed & are unremarkable except as noted in HPI and below PMFSH Past Medical History Medical History Liver disease MTHFR gene mutation Obesity PCOS (polycystic ovarian syndrome) Suppression of menses Surgical History Surgical History H/O bilateral salpingectomy (09/20/22) Laparoscopic bilateral salpingectomy Family History Family History Other Patient denies significant medical history Social History Social History Years smoked: 3 Smoking status: Former smoker Tobacco type: cigarettes Alcohol intake: current Alcohol use details: VERY RARE Substance use: current Substance use type: marijuana Other substance usage details: ONCE A WEEK TO EVERY OTHER WEEK Last use: >1 YEAR Lack of Transportation: No Lack of Food: Never True Current Housing: I Have Housing Concerned About Future Housing: No Difficulty Paying Gas/Electric Bills: No Difficulty Paying for Meds: No Currently Unemployed: No Education: High School Diploma/GED Difficulty w/ Childcare or Family Care: No Living arrangements: with family Occupation/Education: occupation 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 Gender identity (if verbalized by the patient): Female Sexual Orientation (if Verbalized by the Patient): Straight or Heterosexual Spiritual care concerns: No Meds Home Medications and Allergies Home Medications Medication Instructions Recorded Confirmed Type dextroamphetamine-amphetamine 30 30 mg PO DAILY 02/28/23 09/10/23 History mg tablet (Adderall) dextroamphetamine-amphetamine ER 10 mg PO DAILY 06/17/23 09/10/23 History 10 mg 24hr capsule,extend release (Adderall XR) dulaglutide 3 mg/0.5 mL 3 mg (0.5 mL) subcut WEEKLY #6 mL 06/21/23 09/10/23 Rx subcutaneous pen injector (Trulicity) albuterol sulfate 90 mcg/actuation See Rx Instructions .Route 07/23/23 09/10/23 Rx aerosol inhaler .COMPLEX #8.5 ea lamotrigine 200 mg tablet 200 mg PO DAILY 08/04/23 09/10/23 History ubrogepant 50 mg tablet (Ubrelvy) 50 mg PO PRN PRN Headache 08/04/23 09/10/23 History buspirone 7.5 mg tablet 7.5 mg PO BID #180 tabs 09/09/23 09/10/23 Rx pantoprazole 40 mg tablet,delayed 40 mg PO DAILY 09/10/23 09/10/23 History release Allergies Allergy/AdvReac Type Severity Reaction Status Date / Time rizatriptan Allergy Intermediate Hives Verified 09/16/23 12:16 sumatriptan Allergy Intermediate Hives Verified 09/16/23 12:16 Vital Signs Vital Signs - 24 hr 09/16/23 12:18 Temperature 97.1 F L Pulse Rate 63 Respiratory Rate 17 Blood Pressure 120/75 Pulse Oximetry 100 Oxygen Delivery Room Air Exam Const: General: comfortable and no acute distress HENMT: Face/Nose/Sinus: Normal nares present Eyes: General: appearance normal, both eyes and all related structures Neck: Neck: no JVD Resp: Auscultation: clear to auscultation bilaterally Cardio: Rate: regular rate Rhythm: regular rhythm GI: Inspection: non-distended GI Palp: Yes Soft to palpation Skin: General skin exam: normal color Neuro: General: gait normal Speech: normal speech Extrem: General: normal to inspection Psych: Mental Status: mental status grossly normal Assessment and Plan Assessment and plan (1) Abdominal bloating: Code(s): R14.0 - Abdominal distension (gaseous) Status: Acute A
--- NOTE | 2023-09-16 12:49 | WPDANESEPPF ---
Anes - Initial Pre Proc Eval Procedure: Operation Date: 09/16/23 13:30 Proposed Procedures p Esophagogastroduodenoscopy - Milton Flores MD Date/Time: 09/16/23 12:49 Surgeon: Milton Flores MD Pre Op Diagnosis: Melena, Eructation Patient Data Age: 28 Gender: F Height: 1.6 m Weight: 87.9 kg Last Vital Signs Temp 97.1 F L 09/16/23 12:18 Pulse 63 09/16/23 12:18 Resp 17 09/16/23 12:18 BP 120/75 09/16/23 12:18 Pulse Ox 100 09/16/23 12:18 O2 Del Method Room Air 09/16/23 12:18 Allergies Allergy/AdvReac Type Severity Reaction Status Date / Time rizatriptan Allergy Intermediate Hives Verified 09/16/23 12:16 sumatriptan Allergy Intermediate Hives Verified 09/16/23 12:16 Home Medications Medication Instructions Recorded Confirmed Type dextroamphetamine-amphetamine 30 30 mg PO DAILY 02/28/23 09/10/23 History mg tablet (Adderall) dextroamphetamine-amphetamine ER 10 mg PO DAILY 06/17/23 09/10/23 History 10 mg 24hr capsule,extend release (Adderall XR) dulaglutide 3 mg/0.5 mL 3 mg (0.5 mL) subcut WEEKLY #6 mL 06/21/23 09/10/23 Rx subcutaneous pen injector (Trulicity) albuterol sulfate 90 mcg/actuation See Rx Instructions .Route 07/23/23 09/10/23 Rx aerosol inhaler .COMPLEX #8.5 ea lamotrigine 200 mg tablet 200 mg PO DAILY 08/04/23 09/10/23 History ubrogepant 50 mg tablet (Ubrelvy) 50 mg PO PRN PRN Headache 08/04/23 09/10/23 History buspirone 7.5 mg tablet 7.5 mg PO BID #180 tabs 09/09/23 09/10/23 Rx pantoprazole 40 mg tablet,delayed 40 mg PO DAILY 09/10/23 09/10/23 History release Patient hx anesthesia problems: none Family hx anesthesia problems: none Results Review: All pre-operative results and documents have been reviewed as part of the pre-operative evaluation. [facility] Past Medical History Medical History Liver disease MTHFR gene mutation Obesity PCOS (polycystic ovarian syndrome) Suppression of menses Surgical History Surgical History H/O bilateral salpingectomy (09/20/22) Laparoscopic bilateral salpingectomy Family History Family History Other Patient denies significant medical history Social History Social History Years smoked: 3 Smoking status: Former smoker Tobacco type: cigarettes Alcohol intake: current Alcohol use details: VERY RARE Substance use: current Substance use type: marijuana Other substance usage details: ONCE A WEEK TO EVERY OTHER WEEK Last use: >1 YEAR Lack of Transportation: No Lack of Food: Never True Current Housing: I Have Housing Concerned About Future Housing: No Difficulty Paying Gas/Electric Bills: No Difficulty Paying for Meds: No Currently Unemployed: No Education: High School Diploma/GED Difficulty w/ Childcare or Family Care: No Living arrangements: with family Occupation/Education: occupation 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 Gender identity (if verbalized by the patient): Female Sexual Orientation (if Verbalized by the Patient): Straight or Heterosexual Spiritual care concerns: No Anes - Eval Final PreProcedure Day of Procedure 09/16/23 12:49 Patient weight: obese Heart: regular rate and rhythm Lungs: clear to auscultation Airway: Mallampati scale class II Neurological: alert and oriented Last oral intake: >/= 8 hours ASA classification: III Emergent: no Anesthetic plan: proceed Anesthesia type and monitoring: general GIVS and standard monitoring Results Review: All pre-operative results and documents have been reviewed as part of the pre-operative evaluation. Informed Consent: The patient's anesthetic plan and its attendant risks and benefits were discussed with the patient/family/
[2023-09-16] MEDS: LACTATED RINGERS 1,000 ML 150 ML IV CONT (13:12)
[2023-09-16] MEDS: BENZOCAINE (*SP) 60 ML SPRAY CAN (HURRICAINE) 1 SPRAY MUCOUS MEM (13:28)
[2023-09-16 13:39] VITALS: BP 107/69; PULSE 84; RESP 24; O2SAT 99
[2023-09-16 13:49] VITALS: BP 119/82; PULSE 83; RESP 22; O2SAT 99
[2023-09-16 13:59] VITALS: BP 134/76; PULSE 60; RESP 23; O2SAT 99
== END 2023-09-16 14:02 | disposition home or self-care (01) ==
PROVIDERS: PCP Family Medicine; Referring Provider Nurse Practitioner Family; Visit Provider Internal Medicine Gastroenterology
PROC: 0DJ08ZZ Inspection of Upper Intestinal Tract, Via Natural or Artificial Opening Endoscopic (ICD-10-PCS; CPT 43235; principal; 2023-09-16 13:30)
DX: D72.820 Lymphocytosis (symptomatic) (principal); E72.12 Methylenetetrahydrofolate reductase deficiency; E28.2 Polycystic ovarian syndrome; K76.9 Liver disease, unspecified; E66.9 Obesity, unspecified; Z68.34 Body mass index [BMI] 34.0-34.9, adult; Z87.891 Personal history of nicotine dependence; F12.90 Cannabis use, unspecified, uncomplicated; Z79.85 Long-term (current) use of injectable non-insulin antidiabetic drugs; Z79.51 Long term (current) use of inhaled steroids
CPT/HCPCS: 43239; 88305; J2704; J7120

== ENCOUNTER 2023-10-09 08:26 | Outpatient (CLI) | payer OTHER, SELFPAY ==
[2023-10-12 04:24] LABS: Tissue Transglutaminase IgA Ab <1.0 U/mL; Tissue Transglutaminase IgG Ab <1.0 U/mL
== END 2023-10-09 08:27 | disposition home or self-care (01) ==
LOC: ANHLAB 08:27
PROVIDERS: PCP Family Medicine; Visit Provider Internal Medicine Gastroenterology
DX: R11.2 Nausea with vomiting, unspecified (principal); R14.0 Abdominal distension (gaseous)
CPT/HCPCS: 36415; 86364

== ENCOUNTER 2023-11-12 08:45 | Emergency (ER) | payer OTHER, SELFPAY ==
[2023-11-12 08:56] VITALS: BP 132/87; PULSE 81; RESP 16; TEMP 36.6; O2SAT 100
--- NOTE | 2023-11-12 08:56 | ED.GENADULT ---
HPI - General Adult General Chief complaint: Upper Respiratory Infection Stated complaint: Sinus Infection symptoms Time Seen by Provider: 11/12/23 08:57 Source: patient, RN notes reviewed and old records reviewed Mode of arrival: ambulatory Limitations: no limitations History of Present Illness HPI narrative: 28-year-old female to [facility] complaint sore throat, sinus pressure 2 days. Patient currently reading the sinus pressure at 4/10. patient has not attempted to treat symptoms at home. Patient denies fever, difficulty swallowing, shortness of breath, headache, ear pain, GI complaints, pertinent medical history. Patient able is to tolerate fluids by mouth. Respirations even and nonlabored. Patient in no acute distress. Related Data Home Medications Medication Instructions Recorded Confirmed dextroamphetamine-amphetamine 30 30 mg PO DAILY 02/28/23 11/12/23 mg tablet (Adderall) dextroamphetamine-amphetamine ER 10 mg PO DAILY 06/17/23 11/12/23 10 mg 24hr capsule,extend release (Adderall XR) lamotrigine 200 mg tablet 200 mg PO DAILY 08/04/23 11/12/23 (Lamictal) ubrogepant 50 mg tablet (Ubrelvy) 50 mg PO PRN PRN Headache 08/04/23 11/12/23 pantoprazole 40 mg tablet,delayed 40 mg PO DAILY 09/10/23 11/12/23 release Allergies Allergy/AdvReac Type Severity Reaction Status Date / Time rizatriptan Allergy Intermediate Hives Verified 09/16/23 12:16 sumatriptan Allergy Intermediate Hives Verified 09/16/23 12:16 Review of Systems Review of Systems: All systems reviewed & are unremarkable except as noted in HPI and below Constitutional: Constitutional: Reports as per HPI, Denies fatigue and Denies fever(s) Eyes: Eyes: Reports no additional eye complaints ENT: Reports as per HPI, Reports sinus pain, Reports sinus pressure and Reports sore throat Cardiovascular: Cardiovascular: Reports no additional cardiovascular complaints, Denies chest pain and Denies dyspnea Respiratory: Respiratory: Reports no additional respiratory complaints, Denies cough and Denies dyspnea Musculoskeletal: Musculoskeletal: Reports no additional musculoskeletal complaints Neurologic: Reports system reviewed and no additional complaints, except as documented Psychiatric: Psychiatric: Reports no additional psychiatric complaints PMFSH Past Medical History Medical History Liver disease MTHFR gene mutation Obesity PCOS (polycystic ovarian syndrome) Suppression of menses Surgical History Surgical History H/O bilateral salpingectomy (09/20/22) Laparoscopic bilateral salpingectomy Family History Family History Other Patient denies significant medical history Social History Social History Years smoked: 3 Smoking status: Former smoker Tobacco type: cigarettes Alcohol intake: current Alcohol use details: VERY RARE Substance use: current Substance use type: marijuana Other substance usage details: ONCE A WEEK TO EVERY OTHER WEEK Last use: >1 YEAR Lack of Transportation: No Lack of Food: Never True Current Housing: I Have Housing Concerned About Future Housing: No Difficulty Paying Gas/Electric Bills: No Difficulty Paying for Meds: No Currently Unemployed: No Education: High School Diploma/GED Difficulty w/ Childcare or Family Care: No Living arrangements: with family Occupation/Education: occupation 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
[2023-11-12 09:11] LABS: EDSTREPNEGPOS1 Negative
== END 2023-11-12 09:49 | disposition home or self-care (01) ==
PROVIDERS: Emergency Provider Nurse Practitioner Family; PCP Family Medicine
DX: J32.9 Chronic sinusitis, unspecified (principal); Z87.891 Personal history of nicotine dependence; F12.90 Cannabis use, unspecified, uncomplicated; E72.12 Methylenetetrahydrofolate reductase deficiency; E66.9 Obesity, unspecified; Z68.33 Body mass index [BMI] 33.0-33.9, adult; E28.2 Polycystic ovarian syndrome; K76.9 Liver disease, unspecified
CPT/HCPCS: 87081; 87880; 99213; G0463

== ENCOUNTER 2023-12-06 10:18 | Outpatient (CLI) | payer OTHER, SELFPAY ==
[2023-12-06 11:05] LABS: Hematocrit 42.8 % (37.0-47.0); Hemoglobin 14.1 g/dL (12.0-15.0); Mean Corpuscular HGB Conc 32.9 g/dl (32-36); Mean Corpuscular Hemoglobin 30.5 pg (26-34); Mean Corpuscular Volume 92.4 fl (80-100); Platelet Count Result 323 k/mm3 (150-375); Red Blood Count 4.63 M/mm3 (4.2-5.4); Red Cell Distribution Width 13.1 % (11.5-14.5); White Blood Count 8.4 K/mm3 (4.5-10.0)
[2023-12-06 11:25] LABS: Alanine Aminotransferase 10 U/L (6-35); Alkaline Phosphatase 71 U/L (38-126); Amylase 69 U/L (30-110); Anion Gap 8 mmol/L (4-12); Aspartate Amino Transferase 23 U/L (14-36); Bilirubin,Total 0.5 mg/dL (0.2-1.3); Blood Urea Nitrogen 10 mg/dL (7-17); Calcium 8.9 mg/dL (8.4-10.2); Carbon Dioxide 26 mmol/L (22-30); Chloride 103 mmol/L (98-107); Estimated Glomerular Filt Rate > 60; Glucose 83 mg/dL (65-110); Lipase 83 U/L (23-300); Potassium 4.1 mmol/L (3.4-5.0); Sodium 137 mmol/L (137-145)
[2023-12-06 11:51] LABS: Thyroid Stimulating Hormone 0.731 uIU/mL (0.465-4.680)
== END 2023-12-06 10:19 | disposition home or self-care (01) ==
LOC: ANHLAB 10:20
PROVIDERS: PCP Family Medicine; Visit Provider Family Medicine
DX: R10.11 Right upper quadrant pain (principal); R11.0 Nausea
CPT/HCPCS: 36415; 80053; 82150; 83690; 84443; 85027

== ENCOUNTER 2023-12-31 08:13 | Outpatient (CLI) | payer OTHER, SELFPAY ==
--- NOTE | ~2023-12-31 | US_ITS ---
Limited Abdominal Sonogram: Real-time sonographic imaging of the right upper quadrant was performed. Clinical History: Right upper quadrant pain Findings: The liver appears normal with no evidence of bile duct dilatation. 7 mm echogenic mass in the liver is most likely a small hemangioma. Main portal vein demonstrates normal direction of flow. The gallbladder is well distended, and appears normal with no evidence of gallstone or wall thickenin g. The common bile duct measures 3 mm. The visualized pancreas, aorta, and IVC are unremarkable. Rig ht kidney measures 9.1 cm in length, without hydronephrosis or renal stone. Impression: 7 mm echogenic hepatic mass is most likely a small hemangioma. Reviewed, dictated and finalized at location . Impression: 7 mm echogenic hepatic mass is most likely a small hemangioma.
== END 2023-12-31 08:14 | disposition home or self-care (01) ==
LOC: ANHIMG 08:15
PROVIDERS: PCP Family Medicine; Visit Provider Family Medicine
DX: R10.11 Right upper quadrant pain (principal)
CPT/HCPCS: 76705

== ENCOUNTER 2024-04-06 17:14 | Emergency (ER) | payer OTHER, SELFPAY ==
[2024-04-06 17:19] VITALS: BP 132/89; PULSE 78; RESP 16; TEMP 36.7; O2SAT 100
--- NOTE | 2024-04-06 17:19 | ED_ITS ---
HPI - Skin/Abscess/Foreign Bdy General Chief complaint: Skin/Abscess/Foreign Body Stated complaint: Rash Time Seen by Provider: 04/06/24 17:19 Source: patient Mode of arrival: ambulatory Limitations: no limitations History of Present Illness HPI narrative: 29-year-old female presents with complaint of itchy red rash to left forearm for the past 2-3 hours. Took half a Benadryl with no relief of symptoms. Patient reports a no cause of rash. All systems reviewed and negative except as noted above. Related Data Home Medications ?Medication ?Instructions ?Recorded ?Confirmed ?Last Taken ?Type ubrogepant 50 mg tablet (Ubrelvy) 50 mg PO PRN PRN Headache 08/04/23 03/30/24 Unknown History mirtazapine 15 mg tablet mg 04/06/24 Unknown History Allergies Allergy/AdvReac Type Severity Reaction Status Date / Time rizatriptan Allergy Intermediate Hives Verified 04/06/24 17:18 sumatriptan Allergy Intermediate Hives Verified 04/06/24 17:18 Review of Systems Review of Systems: CONSTITUTIONAL: Denies fever, chills, or sweats. EYES: Denies visual changes, redness, or discharge. ENT: Denies rhinorrhea, congestion, sore throat, or otalgia. CARDIOVASCULAR: Denies chest pain, palpitations, or edema. RESPIRATORY: Denies cough or dyspnea. GASTROINTESTINAL: Denies abdominal pain, nausea, vomiting, or diarrhea. GENITOURINARY: Denies dysuria or hematuria. SKIN: Reports erythematous rash, itching to left forearm MUSCULOSKELETAL: Denies back pain, joint pain, or myalgia. NEUROLOGIC: Denies headache, numbness, or weakness. PSYCHIATRIC: Denies anxiety or depression. All other systems reviewed are negative, except as documented in HPI. [facility] Past Medical History Medical History Obesity Suppression of menses Liver disease MTHFR gene mutation PCOS (polycystic ovarian syndrome) Surgical History Surgical History H/O bilateral salpingectomy (09/20/22) Laparoscopic bilateral salpingectomy Family History Family History Other Patient denies significant medical history Social History Social History Years smoked: 3 Smoking status: Former smoker Tobacco type: cigarettes Alcohol intake: current Alcohol use details: VERY RARE Substance use: current Substance use type: marijuana Other substance usage details: ONCE A WEEK TO EVERY OTHER WEEK Last use: >1 YEAR Lack of Transportation: No Lack of Food: Never True Current Housing: I Have Housing Concerned About Future Housing: No Difficulty Paying Gas/Electric Bills: No Difficulty Paying for Meds: No Currently Unemployed: No Education: High School Diploma/GED Difficulty w/ Childcare or Family Care: No Living arrangements: with family Occupation/Education: occupation 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 There is no relevant family history pertinent to the presenting complaint. Exam Narrative: GENERAL: This is a well-nourished, well-developed patient, in no apparent distre ss. HEAD: normocephalic, atraumatic. EYES: PERRL. Sclera clear/white. Vision is grossly intact. EARS: External ears normal NOSE: External nose normal NECK: Neck supple, non-tender without lymphadenopathy, masses or thyromegaly. CARDIOVASCULAR: Regular rate and rhythm without murmurs, gallops, or rubs. RESPIRATORY: Clear to auscultation. Breath sounds equal bilaterally. No wheezes, rales, or rhonchi. SKIN: warm, Dry, intact with erythematous maculopapular rash to L forearm without swelling, good texture and turgor. NEURO: awake, alert, and oriented to person, place and time. There were no obvious focal neurologic abnormalities. EXTREMITIES: No joint tenderness, effusion, or edema noted. Course Course Level of Care: Express Care Visit Vital Signs Vital signs: reviewed MDM - Skin/Abscess/Foreign Bdy MDM Narrative Medical decision making narrative: rash to left forearm. unknown cause. Took half benadryl prior to arrival without improvement. Patient is aware of diagnosis, understands and agrees to treatment plan. Anticipatory guidance given. Patient agrees to follow-up as directed and is aware of reasons to seek care at the emergency department. Portions of this record may have been created with voice recognition software Discharge Plan Discharge Clinical Impression: Rash and nonspecific skin eruption Patient Disposition: Home, Self-Care Condition: Stable Instructions: Acute Rash (ED) Additional Instructions: Take medications as prescribed. Continue taking [id number] antihistamine such as Claritin or Zyrtec. Follow-up with your doctor if not improving. Patient Language: Citizen Of [place] Prescriptions: New prednisone 20 mg tablet 40 mg PO DAILY 5 Days Qty: 10 0RF triamcinolone acetonide 0.1 % cream 1 applic topical BID PRN (Reason: allergic reaction) Qty: 80 0RF famotidine [Pepcid] 20 mg tablet 20 mg PO BID 5 Days Qty: 10 0RF No Action mirtazapine 15 mg tablet Ubrelvy 50 mg tablet 50 mg PO PRN PRN (Reason: Headache) triamcinolone acetonide 0.1 % cream 1 applic topical BID Qty: 30 4RF albuterol sulfate 90 mcg/actuation HFA aerosol inhaler See Rx Instructions .ROUTE .COMPLEX Qty: 8.5 0RF Dose Instruction: INHALE 2 PUFFS EVERY 4 HOURS NEEDED FOR SHORTNESS OF BREATH OR FOR WHEEZE Rx Instructions: INHALE 2 PUFFS EVERY 4 HOURS NEEDED FOR SHORTNESS OF BREATH OR FOR WHEEZE buspirone 15 mg tablet 15 mg PO BID Qty: 180 1RF lamotrigine [Lamictal] 200 mg tablet 200 mg PO DAILY Qty: 90 1RF dextroamphetamine-amphetamine [Adderall XR] 10 mg capsule,extended release 24hr 10 mg PO DAILY Qty: 30 0RF Rx Instructions: 30mg plus 10mg total of 40mg daily dextroamphetamine-amphetamine [Adderall XR] 30 mg capsule,extended release 24hr 30 mg PO QAM Qty: 30 0RF Rx Instructions: Take with 10mg to total 40mg daily Follow-up/Referrals: Fabby Tinoco DO [Primary Care Provider] - Stand Alone Forms: Work/School Release IP Time of Disposition: 17:24
== END 2024-04-06 17:27 | disposition home or self-care (01) ==
PROVIDERS: Emergency Provider Nurse Practitioner Family; PCP Family Medicine
DX: R21 Rash and other nonspecific skin eruption (principal); F12.90 Cannabis use, unspecified, uncomplicated; E28.2 Polycystic ovarian syndrome; E72.12 Methylenetetrahydrofolate reductase deficiency; Z87.891 Personal history of nicotine dependence
CPT/HCPCS: 99213; G0463

== ENCOUNTER 2024-05-10 08:05 | Emergency (ER) | payer OTHER, SELFPAY ==
[2024-05-10 08:13] VITALS: BP 122/90; PULSE 81; RESP 16; TEMP 36.4; O2SAT 100
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
== END 2024-05-10 08:49 | disposition home or self-care (01) ==
PROVIDERS: Emergency Provider Registered Nurse; PCP Family Medicine
DX: J06.9 Acute upper respiratory infection, unspecified (principal); Z87.891 Personal history of nicotine dependence; E28.2 Polycystic ovarian syndrome; E72.12 Methylenetetrahydrofolate reductase deficiency; F41.9 Anxiety disorder, unspecified; F90.9 Attention-deficit hyperactivity disorder, unspecified type; F31.89 Other bipolar disorder; E66.9 Obesity, unspecified; Z68.34 Body mass index [BMI] 34.0-34.9, adult
CPT/HCPCS: 99213; G0463

== ENCOUNTER 2024-08-11 07:20 | Outpatient (CLI) | payer OTHER, SELFPAY ==
--- NOTE | ~2024-08-11 | US_ITS ---
US right upper quadrant INDICATION: Liver lesion. PROCEDURE: Realtime right upper abdominal ultrasound. COMPARISON: Ultrasound dated 12/31/2023 and 09/11/2023 FINDINGS: The pancreas is normal without focal mass or pancreatic ductal dilation. Stable hyperechoi c 7 mm liver mass allowing for cysts of technique. Findings compatible with benign hemangioma in the absence of known malignancy There is normal directional flow in the portal vein. The gallbladder is normal without stones, gallbladder wall thickening or pericholecystic fluid. Comm on bile duct measures 2 mm. No sonographic Milligan's sign. Right renal echotexture is grossly unremar kable. IMPRESSION: 1: Stable 7 mm hyperechoic liver mass, consistent with benign hemangioma in the absence of known sancho gnancy. Reviewed, dictated and finalized at location A. IMPRESSION: 1: Stable 7 mm hyperechoic liver mass, consistent with benign hemangioma in the absence of known malignancy.
--- OUTSIDE RECORDS SUMMARY | 2024-08-11 07:25 | XMS_ITS | CONTINUITY OF CARE DOCUMENT ---
Author Name johana vaughn Address Unknown Organization [facility] Address [address] [place] [address] [address] [place] [address] Phone [phone] Care Team Providers Care Building Cleaning Supervisor Name Role Phone Brendan Light MD Unavailable [phone] SIDDHARTH MARIE Unavailable [phone] INSURANCE PROVIDERS Payer name Policy type / Coverage type [place] [employer] ID [place] MEDICAID (2) Medicaid [id number]
--- OUTSIDE RECORDS SUMMARY | 2024-08-11 07:25 | XMS_ITS | Data Portability ---
Author Organization [facility] [employer], Main Office Address [address] [place] [address] Assessment Encounter Date Assessment Date Assessment LastModified by Organization Details LastModified Time 09/25/2022 09/25/2022 [facility] 09/25/22 Call office if worse, ER if life threatening illness RTC 1 month She voices understanding of plan and agrees [email or web address] Not available 09/25/2022 13:16:56 12/07/2022 12/07/2022 [facility] 09/25/22 Call office if worse, ER if life threatening illness RTC 4 months and PRN She voices understanding of plan and agrees [email or web address] Not available 12/07/2022 12:42:25 Plan of Treatment Reminders Order Date Submit Date Provider Last Modified By Organization Details Last Modified Time Details Appointments None recorded. Lab insulin, serum 2022 023 [facility] (Lab), [address] [place], [address], 3 16:23:04 HbA1c (hemoglobin A1c), blood [address] (Lab), [address] [place], [address], 3 09:01:47 CMP, serum or plasma [address] (Lab), [address] [place], [address], 3 09:01:47 lipid panel, serum [address] (Lab), [address] [place], [address], 3 09:01:47 TSH + free T4, serum [address] (Lab), [address] [place], [address], 3 09:01:47 vitamin B12 + folate, serum or blood [address] (Lab), [address] [place], [address], 3 09:01:46 vitamin D, 25-hydroxy, total, serum [address] (Lab), [address] [place], [address], 3 09:01:47 ferritin, serum or plasma [address] (Lab), [address] [place], [address], 3 09:01:46 iron + total iron-bindin g capacity (TIBC), serum [address] (Lab), [address] [place], [address], 3 09:01:47 CBC w/ auto diff 2022 023 [email or web address] [facility] (Lab), [address] [place], [address], 3 09:52:53 Referral neurologist referral 2022 023 MAURO Love MD, [address], [address] [place], [address], 11:37:22 Procedures None recorded. Surgeries None recorded. Imaging None recorded. Medication Orders Trulicity 0.75 mg/0.5 mL subcutaneou s pen injector 2022 023 MAURO [id number], [address], [place], [address], 3 12:33:30 Nurtec ODT 75 mg disintegrat ing tablet 2022 023 [email or web address] [id number], [address], [place], [address], 3 17:45:06 Patient TargetsNo targets recorded. Patient Instructions Encounter Date Encounter Id Patient Instructions Last Modified By Organization Details Last Modified Time 09/25/2022 [id number] INFLUENZA VACCIN E Recommended today, but patient declined Ordered Patient will get at local pharmacy/health department [place] has egg allergy Your next one in the fall of Your next one in the fall of 2022 TD/TDAP Patient will get at local pharmacy/health department MAMMOGRAM No screening indicated at this time/ no family history CERVICAL SCREENING/PELVIC EXAMINATION No screening necessary patient is up to date COLORECTAL SCREENING No screening necessary until age 45 DEPRESSION SCREENING Negative BMI Obesity continue your current weight loss efforts NUTRITION Continue healthy eating & exercise PHYSICAL ACTIVITY Need more activity Recommendation of 30 minutes of daily activity VISION Recommended today ALCOHOL USE Occasional/Social Use TOBACCO USE former smoker SEXUALLY ACTIVE Yes, Patient is in monogamous relationship GLUCOSE SCREENING Ordered LIPID SCREENING Ordered Not available 09/25/2022 13:19:47 Reason for Referral Neurologist Referral for Bob moncada Referring Physician: Marleny Lemus, Internal Medicine, Encounter Date: 12/07/2022 Results Created Date Observation Date Name Description Value Unit Range Abnormal Flag Note LastModifiedBy Organization Detail LastModifiedTime 11/29/19 22 11/29/2021 INSUL IN insulin 32.5 uIU/m L 2.6-24 .9 high Perfo rmed at: [facility] [address] [facility], [place] [address] 4[address] Lab Direc tor: Raymundo coronado PhD, Phone : [phone] Not Available [facility] (Lab) [address] [place], [address], 11/29/2021 10:11:54 11/29/19 22 11/28/2021 HEMOG LOBIN A1C HA1C 4.7 % 4.0-6. 0 Diabe elham Scree jessica Crite juventino: <5.7% Consi stent with absen ce of diabe elham 5.7-6 .4% Consi stent with incre ased risk for diabe elham (pred iabet es) >OR=6 .5% Consi stent with diabe elham REFER ENCE: Diabe elham Care 2016, 39(Morales ppl.1 ):s13 -s22 Not Available [facility] (Lab) [address] [place], [address], 11/28/2021 19:02:35 11/29/19 22 11/28/2021 TSH thyroid-stim ulating hormone 1.130 uIU/m L 0.465- 4.680 Not Available [facility] (Lab) [address] [place], [address], 11/28/2021 15:16:46 11/29/19 22 11/28/2021 CORTI RACHID, TOTAL alok 9.5 ug/dL CORTI RACHID RESUL T COMME NT: Refer ence Range : Befor e 10 a.m. Speci men: 4.5-2 2.7 Refer ence Range : After 5 p.m. Speci men: 1.7-[address] ease inter pret above resul ts accor dingl y Not Available [facility] (Lab) [address] [place], [address], 11/28/2021 15:16:41 11/29/19 22 11/28/2021 T4 FREE free T4 1.29 NG/dL 0.78-2 .19 Not Available [facility] (Lab) [address] [place], [address], 11/28/2021 14:59:35 11/29/19 22 11/28/2021 COMPR EHENS AMANDA METAB OLIC PANEL sodium 136 mmol/ L 137-14 5 low Not Available [facility] (Lab) [address] [place], [address], 11/28/2021 14:44:55 11/29/19 22 11/28/2021 COMPR EHENS AMANDA METAB OLIC PANEL potassium 3.8 mmol/ L 3.5-5. 1 Not Available [facility] (Lab) [address] [place], [address], 11/28/2021 14:44:55 11/29/19 22 11/28/2021 COMPR EHENS AMANDA METAB OLIC PANEL chloride 105 mmol/ L 98-107 Not Available [facility] (Lab) [address] [place], [address], 11/28/2021 14:44:55 11/29/19 22 11/28/2021 COMPR EHENS AMANDA METAB OLIC PANEL carbon dioxide 23 mmol/ L 22-30 Not Available [facility] (Lab) [address] [place], [address], 11/28/2021 14:44:55 11/29/19 22 11/28/2021 COMPR EHENS AMANDA METAB OLIC PANEL anion gap 11.8 mmol/ L 14-22 low Not Available [facility] (Lab) [address] [place], [address], 11/28/2021 14:44:55 11/29/19 22 11/28/2021 COMPR EHENS AMANDA METAB OLIC PANEL glucose 84 mg/dL 70-99 Not Available [facility] (Lab) [address] [place], [address], 11/28/2021 14:44:55 11/29/19 22 11/28/2021 COMPR EHENS AMANDA METAB OLIC PANEL BUN 7 mg/dL 8-19 low Not Available [facility] (Lab) [address] [place], [address], 11/28/2021 14:44:55 11/29/19 22 11/28/2021 COMPR EHENS AMANDA METAB OLIC PANEL creatinine 0.67 mg/dL 0.66-1 .25 Not Available [facility] (Lab) [address] [place], [address], 11/28/2021 14:44:55 11/29/19 22 11/28/2021 COMPR EHENS AMANDA METAB OLIC PANEL GFR >60 Refer ence Range : [place] ge GFR Healt hy Adult : >60 mL/mi n/1.7 3 m2 Chron ic Kidne y Disea se: 15-60 mL/mi n/1.7 3 m2 Kidne y Failu re: <15/m L/min /1.73 m2 www.n iddk. nih.g ov The MDRD study equat ion has not been valid ated in child tammi <18 years of age; pregn ant women ; the elder ly >85 years of age; or in some racia l or ethni c subgr oups, such as nd nics. Outsi de the valid ated barrington eters , estim ated GFR is less accur ate, requi ring clini kia judgm ent on a case- by-ca se basis . Clini kia inter preta tion for other races and ages must be made by the clini israel. The MDRD study equat ion has not been valid ated for the evalu ation of serum creat inine relat ed to nutri rhys l statu s or medic ation usage . For perso ns <18 years of age, a pedia tric GFR calcu lator is avail able on the [facility] websi te: https :[email or web address] oliva.william joe.o rg/pr ofess ional s/kdo qi/gf r_cal culat or Not Available [facility] (Lab) [address] [place], [address], 11/28/2021 14:44:55 11/29/19 22 11/28/2021 COMPR EHENS AMANDA METAB OLIC PANEL alkaline phosphatase 108 U/L 38-126 Not Available [facility] (Lab) [address] [place], [address], 11/28/2021 14:44:55 11/29/19 22 11/28/2021 COMPR EHENS AMANDA METAB OLIC PANEL alanine aminotransfe rase 73 U/L 0-35 high Not Available [facility] (Lab) [address] [place], [address], 11/28/2021 14:44:55 11/29/19 22 11/28/2021 COMPR EHENS AMANDA METAB OLIC PANEL aspartate aminotransfe rase 55 U/L 15-37 high Not Available [facility] (Lab) [address] [place], [address], 11/28/2021 14:44:55 11/29/19 22 11/28/2021 COMPR EHENS AMANDA METAB OLIC PANEL bilirubin, total 0.60 mg/dL 0.20-1 .30 Not Available [facility] (Lab) [address] [place], [address], 11/28/2021 14:44:55 11/29/19 22 11/28/2021 COMPR EHENS AMANDA METAB OLIC PANEL calcium 9.1 mg/dL 8.4-10 .2 Not Available [facility] (Lab) [address] [place], [address], 11/28/2021 14:44:55 11/29/19 22 11/28/2021 COMPR EHENS AMANDA METAB OLIC PANEL total protein 7.4 g/dL 6.3-8. 2 Not Available [facility] (Lab) [address] [place], [address], 11/28/2021 14:44:55 11/29/19 22 11/28/2021 COMPR EHENS AMANDA METAB OLIC PANEL albumin 3.9 g/dL 3.4-5. 0 Not Available [facility] (Lab) [address] [place], [address], 11/28/2021 14:44:55 11/29/19 22 11/28/2021 COMPR EHENS AMANDA METAB OLIC PANEL globulin 3.5 g/dL 2.6-4. 2 Not Available [facility] (Lab) [address] [place], [address], 11/28/2021 14:44:55 11/29/19 22 11/28/2021 COMPR EHENS AMANDA METAB OLIC PANEL A/G ratio 1.1 ratio 1.0-2. 0 Not Available [facility] (Lab) [address] [place], [address], 11/28/2021 14:44:55 09/30/19 22 09/29/2021 US, abdom en, limit ed [facility] [address] [place] [address] Patien t Name: CUONG PAIZ Access ion #: [id number] Sex: F : 1994 10 Locati on: RAD Attend ing Physic kari: MARLENY LEMUS Orderi ng Physic kari: MARLENY LEMUS Exam Date: 022 8:49 AM Exam Name: US ABDOME N SINGLE ORGAN Admitt ing Diagno sis(es ): RADIOL OGY REPORT - FINAL EXAM: US ABDOME N SINGLE ORGAN HISTOR Y: ruq pain COMPAR CHRISTIANNE: None. TECHNI QUE: Abdomi nal ultras ound imagin g of the right upper quadra nt is perfor med. Dopple r imagin g of the vascul ar struct ures is perfor med. FINDIN GS: Liver: Unrema rkable , no mass Biliar y system : The common bile duct measur ement is 0.33 cm, the upper limit of normal is 0.6 cm Page 1 of 2 [facility] Pati t Name: CUONG PAIZ Access ion #: [id number] Sex: F : 1994 10 Exam Date: 8:49 AM Exam Name: US ABDOME N SINGLE ORGAN Admitt ing Diagno sis(es ): Gallbl adder: The gallbl adder wall measur ement is 0.20 cm. The gallbl adder appear s unrema rkable . Milligan 's sign was Absent . Pancre as: Obscur ed by bowel gas, not evalua marcy. Right kidney : Dimens ions of the right kidney are 10.0 x 4.0 x 4.7 cm. The right kidney appear s unrema rkable . Vascul ature: The aorta and inferi or vena cava are hepato petal flow. Portal vein: IMPRES ROBERTA: Unrema rkable abdomi nal ultras ound, see above. Create d and electr onical ly signed by: Casey amado MD Signed Date: 11:46 AM (CT) Dictat ed by: Casey amado MD DD: 11:46 AM (CT) DT: 11:46 AM (CT) Page 2 of 2 [id number] [facility] (Imaging) [address] [place], [address], 05/17/2022 01:00:13 06/12/1906/11/2022 US, liver No observ ation record ed. [address], [address], 06/11/2022 17:16:59 01/18/2001/17/2023 CT, brain , w/o contr ast No observ ation record ed. [place] [id number] [facility] [address], [address], 01/24/2023 09:48:01 01/18/20 01/17/2023 CT, cervi kia spine , w/o contr ast No observ ation record ed. [address], [place], [address], 01/24/2023 09:48:27 01/18/20 23 01/17/2023 CT, angio gram, chest , w/ contr ast No observ ation record ed. [place] [id number] [facility] [address], [place], [address], 01/24/2023 09:48:49 Result Notes None recorded. Problems Name Problem SNOMED Code Status Onset Date Resolution Date Notes Provider Name and Address Organization Details Recorded Time Acute serous otitis media of left ear 0767927212134 101 Active 2021 Not Available [facility] 3 10:38:08 Chronic hepatitis C 024432365 Active 2021 Not Available [facility] 3 10:38:08 Right upper quadrant pain 897500802 Active 2021 Not Available [facility] 3 10:38:08 Upper respirator y infection 46172574 Active 2021 Not Available [facility] 3 10:38:08 Insulin resistance 224389508 Active 2022 Not Available [facility] 3 10:38:08 Iron deficiency anemia 63840347 Active 2022 Not Available [facility] 3 10:38:08 Hyperlipid emia 08113648 Active 2022 Not Available [facility] 3 10:38:08 Obesity 326786163 Active 2022 Not Available [facility] 3 10:38:08 Vitamin B12 deficiency (non anemic) 84201672 Active 2022 Not Available [facility] 3 10:38:08 Attention deficit hyperactiv ity disorder 637714894 Active 2022 Not Available [facility] 3 10:38:08 Bipolar disorder 02529170 Active 2022 Not Available [facility] 3 10:38:08 Polycystic ovary syndrome 529443499 Active 2022 Not Available [facility] 3 10:38:08 Migraine 13758044 Active 2022 Not Available [facility] 3 10:38:08 Allergic rhinitis 34584793 Active 2022 Not Available [facility] 3 10:38:08 Vitamin D deficiency 85650738 Active 2022 Not Available [facility] 3 10:38:08 Acute sinusitis 07552650 Active 2022 Not Available [facility] 3 10:38:08 Liver enzymes level above reference range 926680555 Active 2022 Not Available [facility] 3 10:38:08 Syncope 959051657 Active 2022 Annie fernandez, [place] [employer] [facility] [employer] [facility] 3 12:10:43 Gastritis [id number] Magan Stephens APRN [address], [place], [address] , [facility] [employer] [facility] [employer] [facility] 4 10:00:07 Acute serous otitis media of right ear 0497316850044 105 Active Sabine Stephens APRN [address], [address], [place], [address] , [facility] [employer] [facility] [employer] [facility] 4 10:03:05 Low back pain [id number] ALEKSANDRA [address], [place], [address] , [facility] [employer] [facility] [employer] [facility] 4 10:09:22 Acute pharyngiti s [id number] Magan Stephens APRN [address], [address], [place], [address] , [facility] [employer] [facility] [email or web address] [facility] 4 10:11:02 Problem Notes None recorded. Procedures Surgical History Date Name Laterality Status Provider Name and Address Organization Details Recorded Time 3 Tubal Ligation completed Ekaterina Batres MA [facility] [employer] [facility] 09/25/2022 12:13:00 Cyst Removal completed Not Available [facility] 05/17/2022 00:57:40 Imaging Results None recorded. Procedure Notes None recorded. Medical Equipment None Reported. Allergies Allergen ID Allergen Name Allergen Category Reaction Reaction Severity Criticality Documentation Date Start Date Code Code System Note Provider Name and Address Organization Details Recorded Time 00469 No known allergy (situatio n) Not available Not available Not available Not available 07/16/2023 35334 6003 SNOMED Sabinebrittany Stephens, [employer] [address] [facility], [facility] [address], [place], [address] , [facility] [employer] 4 10:00:20 No known drug allergies Medications Name Sig Start Date Stop Date Status Note LastModified by Organization Details LastModified Time cyclobenzap rine 10 mg tablet active Not Available Not Available Not Available lamotrigine 150 mg tablet TAKE 1 TABLET BY MOUTH ONCE DAILY DISCONTIN UE IF RASH OCCURS active Not Available Not Available No t Available Vitamin B-6 25 mg tablet TAKE 1 TABLET BY MOUTH DAILY 09/25 completed Not Available Not Available Not Available atorvastati n 20 mg tablet 06/06 completed Not Available Not Available Not Available azithromyci n 250 mg tablet TAKE 2 TABLETS BY MOUTH TODAY, THEN TAKE 1 TABLET DAILY FOR 4 DAYS 09/04 completed Not Available Not Available Not Available ibuprofen 800 mg tablet TAKE 1 TABLET BY MOUTH THREE TIMES DAILY NEEDED FOR PAIN 09/25 completed Not Available Not Available Not Available fluconazole 150 mg tablet TAKE 1 TABLET BY MOUTH ONCE EVERY 72 HOURS 09/25 completed Not Available Not Available Not Available hydrocodone 5 mg-acetamin ophen 325 mg tablet TAKE 1 TABLET BY MOUTH EVERY 6 HOURS NEEDED FOR PAIN 09/25 completed Not Available Not Available Not Available Adderall 5 mg tablet 1 tablet by oral route. active Not Available Not Available No t Available metronidazo le 0.75 % (37.5 mg/5 gram) vaginal gel 06/06 completed Not Available Not Available Not Available prednisone 20 mg tablet TAKE 2 TABLETS BY MOUTH DAILY FOR 5 DAYS active Not Available Not Available No t Available spironolact one 100 mg tablet 06/06 completed Not Available Not Available Not Available penicillin V potassium 500 mg tablet 06/06 completed Not Available Not Available Not Available topiramate 25 mg tablet TAKE 1 TABLET BY MOUTH EVERY DAY AT NIGHT active Not Available Not Available No t Available cimetidine 800 mg tablet 06/06 completed Not Available Not Available Not Available lamotrigine 25 mg chewable dispersible tablet medicatio n:lamotri gine 25 mg Tablet, Chewable Dispersib le dose:0 .0 route:PO frequenc y:PRN active Not Available Not Available No t Available Condoms-Pre m Lubricated 06/06 completed Not Available Not Available Not Available ketorolac 30 mg/mL (1 mL) injection solution 30 mg by injection route. 12/20 completed Not Available Not Available Not Available pantoprazol e 20 mg tablet,shelbi yed release TAKE 1 TABLET BY MOUTH EVERY DAY 12/07 completed Not Available Not Available Not Available amoxicillin 875 mg tablet TAKE 1 TABLET BY MOUTH TWICE DAILY 07/15 completed Not Available Not Available Not Available famotidine 20 mg tablet TAKE 1 TABLET BY MOUTH EVERYDAY AT BEDTIME 09/25 completed Not Available Not Available Not Available cephalexin 500 mg capsule TAKE 1 CAPSULE BY MOUTH EVERY 6 HOURS X5DAYS 09/25 completed Not Available Not Available Not Available metformin 1,000 mg tablet 06/06 completed Not Available Not Available Not Available clotrimazol e 1 % topical solution 5 DROPS, THREE TIMES PER DAY, RIGHT EAR CANAL, USE UNTIL FOLLOW UP active Not Available Not Available No t Available folic acid 1 mg tablet 06/06 completed Not Available Not Available Not Available mirtazapine 15 mg tablet TAKE 1 TABLET BY MOUTH EVERY DAY AT BEDTIME active Not Available Not Available No t Available ergocalcife rol (vitamin D2) 1,250 mcg (50,000 unit) capsule TAKE 1 CAPSULE BY MOUTH ONCE WEEKLY active Not Available Not Available No t Available methylpredn isolone 4 mg tablets in a dose pack 07/15 completed Not Available Not Available Not Available dextroamphe tamine-amph etamine ER 30 mg 24hr capsule,ext end release TAKE 1 CAPSULE BY MOUTH IN THE MORNING (FOR A TOTAL OF 35 MG) FOR 30 DAYS active Not Available Not Available No t Available ondansetron 4 mg disintegrat ing tablet DISSOLVE 1 TABLET ON THE TONGUE EVERY 6 HOURS NEEDED FOR NAUSEA/VO MITING 09/25 completed Not Available Not Available Not Available cefdinir 300 mg capsule Take 1 capsule every 12 hours by oral route for 7 days. 09/25 completed Not Available Not Available Not Available fluticasone propionate 50 mcg/actuati on nasal spray,suspe nsion SPRAY 2 SPRAYS INTO EACH NOSTRIL DAILY active Not Available Not Available No t Available lamotrigine 100 mg tablet TAKE 1 TABLET BY MOUTH EVERY DAY. DISCONTIN UE IF RASH OCCURS active Not Available Not Available No t Available metoclopram francie 10 mg tablet 06/06 completed Not Available Not Available Not Available amoxicillin 875 mg-potassiu m clavulanate 125 mg tablet Take 1 tablet every 12 hours by oral route for 7 days. active Not Available Not Available No t Available dextroamphe tamine-amph etamine ER 5 mg 24hr capsule,ext end release TAKE 1 CAPSULE BY MOUTH ONCE DAILY IN THE MORNING (FOR TOTAL OF 35 MG) active Not Available Not Available No t Available ciprofloxac in 0.3 %-dexametha sone 0.1 % ear drops,suspe nsion INSTILL 4 DROPS INTO THE AFFECTED EAR(S) TWICE DAILY X7 DAYS 09/04 completed Not Available Not Available Not Available Folbee 2.5 mg-25 mg-1 mg tablet TAKE 1 TABLET BY MOUTH EVERY DAY 06/06 completed Not Available Not Available Not Available Trulicity 1.5 mg/0.5 mL subcutaneou s pen injector 1.5 mg by sub-q route. active Not Available Not Available No t Available Trulicity 0.75 mg/0.5 mL subcutaneou s pen injector INJECT 0.75MG UNDER THE SKIN ONE TIME PER WEEK active Not Available Not Available No t Available riboflavin (vitamin B2) 400 mg tablet TAKE 1 TABLET BY MOUTH EVERY DAY 09/25 completed Not Available Not Available Not Available sofosbuvir 400 mg-velpatas vir 100 mg tablet active Not Available Not Available Not Available Ozempic 0.25 mg or 0.5 mg (2 mg/1.5 mL) subcutaneou s pen injector Inject by subcutane ous route for 28 days. 04/17 completed Not Available Not Available Not Available Slynd 4 mg (28) tablet TAKE 1 TABLET BY MOUTH EVERY DAY 01/23 completed Not Available Not Available Not Available Se-Earl 19 29 mg iron-1 mg tablet 06/06 completed Not Available Not Available Not Available Ubrelvy 100 mg tablet Take by oral route for 8 days. active Not Available Not Available No t Available Ubrelvy 50 mg tablet TAKE 1 TAB BY MOUTH NEEDED FOR MIGRAINE MAY REPEAT ONCE IN 2 HOURS IF NO RELIEF. MAX 2TABS/24H R active Not Available Not Available No t Available Nurtec ODT 75 mg disintegrat ing tablet Take by oral route for 16 days. active Not Available Not Available No t Available Epclusa 200 mg-50 mg tablet 1 tablet by oral route. active Not Available Not Available No t Available Qulipta 60 mg tablet TAKE 1 TABLET BY MOUTH ONCE DAILY 09/25 completed Not Available Not Available Not Available Vitals Date Recorded Body height Body mass index (BMI) Body weight Body temperature Heart rate Oxygen saturation Oxygen saturation in Arterial blood by Pulse oximetry Systolic And Diastolic Provider Name and Address Organization Details Last Updated DateTime 3 157.48 cm 38.8 kg/m2 45505.5 8 g 98.4 [degF] 98 /min 97 % 97 % 126/78 mm[Hg] Ekaterina Batres, [facility] [employer] 3 12:17:11 Date Recorded Body mass index (BMI) Body height Oxygen saturation Oxygen saturation in Arterial blood by Pulse oximetry Heart rate Body temperature Body weight Systolic And Diastolic Provider Name and Address Organization Details Last Updated DateTime 2 40.1 kg/m2 157.48 cm 98 % 98 % 88 /min 97.4 [degF] 79145.7 3 g 128/76 mm[Hg] Not Available [facility] 3 00:58:27 Date Recorded Body mass index (BMI) Body height Oxygen saturation Oxygen saturation in Arterial blood by Pulse oximetry Heart rate Body temperature Body weight Systolic And Diastolic Provider Name and Address Organization Details Last Updated DateTime 2 40.2 kg/m2 157.48 cm 98 % 98 % 98 /min 97.6 [degF] 92059.3 2 g 122/78 mm[Hg] Not Available [facility] 3 00:58:27 Date Recorded Body height Body mass index (BMI) Body weight Body temperature Heart rate Oxygen saturation Oxygen saturation in Arterial blood by Pulse oximetry Systolic And Diastolic Provider Name and Address Organization Details Last Updated DateTime 3 157.48 cm 39.1 kg/m2 96310.7 7 g 98 [degF] 70 /min 99 % 99 % 124/78 mm[Hg] Ekaterina Batres, [place] [facility] [place] [employer] 3 12:24:56 Date Recorded Body mass index (BMI) Body height Oxygen saturation Oxygen saturation in Arterial blood by Pulse oximetry Heart rate Body temperature Body weight Systolic And Diastolic Provider Name and Address Organization Details Last Updated DateTime 2 40.1 kg/m2 157.48 cm 98 % 98 % 102 /min 97.1 [degF] 51233.7 3 g 126/74 mm[Hg] Not Available [facility] 3 00:58:27 Social History Question Answer Notes LastModified by Organization Details LastModified Time Tobacco Smoking Status Former Smoker quit 3 years ago Not Available [facility] 00:57:26 What Is Your Level Of Caffeine Consumption? Occasional MIGRATION.030 [id number] Information not available 05/17/2022 In The 14 Days Before Symptom Onset, Have You Had Close Contact With A Laboratory-confi rmed COVID-19 While That Case Was Ill? No MIGRATION.030 [id number] Information not available 05/17/2022 In The 14 Days Before Symptom Onset, Have You Had Close Contact With A Person Who Is Under Investigation For COVID-19 While That Person Was Ill? No MIGRATION.300 [id number] Information not available 05/17/2022 What Type Of Diet Are You Following? REGULAR MIGRATION.300026 Information not available 05/17/2022 What Is The Highest Grade Or Level Of School You Have Completed Or The Highest Degree You Have Received? [id number] MIGRATION.300026 Information not available 05/17/2022 What Is The Fluoride Status Of Your Home? Unknown MIGRATION.300026 Information not available 05/17/2022 When Did You Quit Smoking? 1-5yearssincelastci nata MIGRATION.300026 Information not available 05/17/2022 Are There Any Guns Present In Your Home? Yes MIGRATION.030 [id number] Information not available 05/17/2022 Do You Use Insect Repellent Routinely? No MIGRATION.0301 [id number] Information not available 05/17/2022 Where Do You Live? [place]House MIGRATION.0301 [id number] Information not available 05/17/2022 What Was The Date Of Your Most Recent Tobacco Screening? 12/07/2022 [email or web address] Information not available 12/07/2022 Have You Ever Been Counseled For Unhealthy Alcohol Use? No MIGRATION.0301 [id number] Information not available 05/17/2022 Do You Have Any Pets? Yes MIGRATION.0301 [id number] Information not available 05/17/2022 What Is Your Relationship Status? MIGRATION.0301 [id number] Information not available 05/17/2022 Do You Use Your Seat Belt Or Car Seat Routinely? Yes MIGRATION.0301 [id number] Information not available 05/17/2022 Do You Have Smoke And Carbon Monoxide Detectors In Your Home? Yes MIGRATION.0301 [id number] Information not available 05/17/2022 Are You Passively Exposed To Smoke? No MIGRATION.0301 [id number] Information not available 05/17/2022 Are There Any Smokers In Your House? No MIGRATION.0301 [id number] Information not available 05/17/2022 Do You Use Sunscreen Routinely? Yes MIGRATION.0301 [id number] Information not available 05/17/2022 Have You Recently Traveled Abroad? No MIGRATION.0301 [id number] Information not available 05/17/2022 Do You Have Any Dietary Restrictions? No MIGRATION.0301 [id number] Information not available 05/17/2022 Sex: Unknown Functional Status Question Answer Note LastModified by [employer] Details LastModified Time Do you use any illicit or recreational drugs? No [id number] Information not available 05/17/2022 What is your level of alcohol consumption? Occasional MIGRATION.[id number] 026 Information not available 05/17/2022 What is your exercise level? Occasional MIGRATION.[id number] 026 Information not available 05/17/2022 Mental Status Question Answer Note LastModified by [employer] Details LastModified Time Do you feel stressed (tense, restless, nervous, or anxious, or unable to sleep at night)? [id number] [id number] Information not available 05/17/2022 Family History Relationship Description Onset Age of this Age Resolved Age Notes LastModified by Organization Details LastModified Time Father No current problems or disability MIGRATION.482 [id number] Not available 05/17/2022 00:57:41 Mother No current problems or disability MIGRATION.080 [id number] Not available 05/17/2022 00:57:41 Medical History No medical history recorded. Gynecological HistoryNo gynecological history recorded. Obstetrics History GPAL:G 0 P 0 0 0 0 Immunizations Vaccine Type Date Status Note Provider Nam e and Address Organization Details Recorded Time Hib, unspecified formulation 8 completed Sabine Stephens APRN [address], [address], [place], [address], [facility] [employer] [facility] 07/16/2023 10:02:29 IPV 2 completed Sabine Stephens APRN [address], [place], [address], [facility] [employer] [facility] 07/16/2023 10:02:29 MMR 8 completed Sabine Stephens APRN [address], [address], [place], [address], [facility] [employer] [facility] 07/16/2023 10:02:29 MMR 2 completed Sabine Stephens APRN [address], [place], [address], E[facility] Surgical [facility] [employer] [facility] 07/16/2023 10:02:29 COVID-19, mRNA, LNP-S, PF, 30 mcg/0.3 mL dose 2 completed Sabine Stephens APRN [address], [place], [address], [facility] [employer] [facility] 07/16/2023 10:02:29 COVID-19, mRNA, LNP-S, PF, 30 mcg/0.3 mL dose 2 completed Sabine Stephens APRN [address], [place], [address], [facility] [employer] [facility] 07/16/2023 10:02:29 COVID-19 vaccine, vector-nr, rS-Ad26, PF, 0.5 mL 1 completed Sabine Stephens, MACHINE BUFFER [address], [place], [address], [place] [facility] 07/16/2023 10:02:29 Tdap 2 completed Sabine Stephens, MACHINE BUFFER [address], [place], [address], [place] [facility] 07/16/2023 10:02:29 Tdap 3 completed Sabine Stephens, MACHINE BUFFER [address], [place], [address], [place] [facility] 07/16/2023 10:02:29 Tdap 7 completed Sabine Stephens APRN [address], [address], [place], [address], [place] [facility] 07/16/2023 10:02:29 varicella 8 completed Sabine Stephens APRN [address], [address], [place], [address], [place] [facility] 07/16/2023 10:02:29 varicella 8 completed Sabine Stephens APRN [address], [place], [address], [place] [facility] 07/16/2023 10:02:29 OPV 7 completed Sabine Stephens APRN [address], [place], [address], [place] [facility] 07/16/2023 10:02:29 OPV 7 completed Sabine Stephens APRN [address], [place], [address], [place] [facility] 07/16/2023 10:02:29 OPV 7 completed Sabine Stephens APRN [address], [place], [address], [place] [facility] 07/16/2023 10:02:29 DTP-Hib 7 completed Sabine Stephens APRN [address], [place], [address], [employer] [facility] 07/16/2023 10:02:29 DTP-Hib 7 completed Sabine Stephens APRN [address], [place], [address], [employer] [facility] 07/16/2023 10:02:29 DTP-Hib 7 completed Sabine Stephens APRN [address], [place], [address], [employer] [facility] 07/16/2023 10:02:29 Influenza, split virus, trivalent, PF 1 completed Sabine Stephens APRN [address], [place], [address], [employer] 07/16/2023 10:02:29 Influenza, split virus, trivalent, PF 3 completed Sabine Stephens APRN [address], [place], [address], [employer] [facility] 07/16/2023 10:02:29 Influenza, split virus, trivalent, PF 2 completed Sabine Stephens APRN [address], [place], [address], [employer] [facility] 07/16/2023 10:02:29 HPV, quadrivalent 7 completed Sabine Stephens APRN [address], [place], [address], [employer] [facility] 07/16/2023 10:02:29 HPV, quadrivalent 7 completed Sabine Stephens APRN [address], [place], [address], [employer] [facility] 07/16/2023 10:02:29 HPV, quadrivalent 7 completed [address], [place], [address], [employer] 07/16/2023 10:02:29 Hep B, adolescent or pediatric 7 completed ALEKSANDRA [address], [place], [address], [employer] 07/16/2023 10:02:29 Hep B, adolescent or pediatric 7 completed ALEKSANDRA [address], [place], [address], [employer] 07/16/2023 10:02:29 Hep B, adolescent or pediatric 7 completed ALEKSANDRA [address], [place], [address], [employer] 07/16/2023 10:02:29 Hep B, adolescent or pediatric 6 completed ALEKSANDRA [address], [place], [address], [employer] 07/16/2023 10:02:29 Hep B, adult 1 completed Sabine Stephens APRN [address], [place], [address], [employer] 07/16/2023 10:02:29 Hep A, pediatric, unspecified formulation 7 completed ALEKSANDRA [address], [place], [address], [employer] [facility] 07/16/2023 10:02:29 Hep A, pediatric, unspecified formulation 8 completed Sabine Stephens APRN [address], [place], [address], [employer] 07/16/2023 10:02:29 Meningococcal MCV4O [address], [place], [address], [facility] [employer] [facility] 07/16/2023 10:02:29 meningococcal MCV4P 0 completed Sabine Stephens APRN [address], [address], [place], [address], [facility] [employer] [facility] 07/16/2023 10:02:29 DTaP 8 completed Sabine Stephens APRN [address], [place], [address], [facility] [employer] [facility] 07/16/2023 10:02:30 DTaP 2 completed Sabine Stephens APRN [address], [place], [address], [facility] [employer] [facility] 07/16/2023 10:02:30 Influenza, split virus, quadrivalent, PF 8 completed Sabine Stephens APRN [address], [place], [address], [facility] [employer] [facility] 07/16/2023 10:02:30 Influenza, split virus, quadrivalent, PF 1 completed Sabine Stephens APRN [address], [place], [address], [facility] [email or web address] [facility] 07/16/2023 10:02:30 Past Encounters Encounter ID Performer Location Encounter Start Date Encounter Closed Date Diagnosis/Indication Diagnosis SNOMED-CT Code Diagnosis ICD10 Code Diagnosis Note [id number] Sloane mckeon MD [facility] [place] [facility] [address] [facility] [address] [place] [address] 06/06/2021 00:00:00 06/06/2021 13:42:21 [id number] MD AUSTIN Huber_G Internal Med [facility] [address] [facility] [address] [place] [address] 07/07/2021 00:00:00 07/07/2021 13:15:28 [id number] MD AUSTIN Huber_[facility] [address] [place] [address] 09/04/2021 00:00:00 09/04/2021 14:23:26 [id number] Sloane mckeon MD [facility] Internal Med [facility] [address] [address] 10/24/2021 00:00:00 10/24/2021 13:25:42 [id number] Sloane mckeon MD [facility] Internal Med [facility] [address] [address] 11/28/2021 00:00:00 11/28/2021 14:00:48 [id number] Sloane mckeon MD [facility] Internal Med [facility] [address] [address] 01/23/2022 00:00:00 01/23/2022 14:13:36 [id number] Sloane mckeon MD [facility] Internal Med [facility] [address] [address] 09/25/2022 12:04:40 09/25/2022 12:39:15 Insulin resistance 587059850 E88.81 Start Trulicity- she is aware of side effects, risks, and benefits She was shown how to use the Trulicity on a demo device pt is aware of side effects, risks, benefitspt denies any personal or family history of MEN II or MTC, denies and personal history of pancreatit ispt knows to call the office if any severe n/v or abdominal pain Right uppe r quadrant pain [id number] R10.11 s/p gallbladde r u/shas order for HIDA scan- recommend she get this donerecomm end low fat dietto ER if worse in the interim hasn't been bothering her lately so she hasn't gotten the HIDA done Iron defic iency anemia 56020233 D50.9 stable on last labs, on PNV Hyperlipidemia 11145019 E78.5 no meds currently, working on diet/exerc ise Obesity 504330482 E66.9 recommend healthy, well balanced mealsfocus on lean meats, fresh vegetables , fresh fruits, whole grainsredu ce fast/proce ssed foods or eating out to no more than 1-2 times per weekaim to get 30 min of exercise most days of the week- walking is a great choicealso recommend resistance training 2-3 times per week (once cleared by surgeon) Vitamin B1 2 deficiency (non anemic) 31795881 E53.8 on PO supplement Attention deficit hyperactivity disorder 706465313 F90.9 follows psychiatry at [facility] calling today to get an appt with her psych to restart medsCall office if any change in mood or behavior Bipolar disorder 7148203 4 F31.9 as above Polycystic ovary syndrome 926425356 E28.2 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 Lilly Vitamin D deficiency 347 10372 E55.9 on daily supplement OTC Chronic hepatitis C 1283 32968 B18.2 following GI- Dr. Grimaldo Liver enzy mes level above reference range 795312747 R74.01 as above- chronic hep c infection Adult heal th examination 615511011 Z00.01 Depression screening 171 150882 Z13.31 Ex-smoker 8035481 Z87.89 1 [id number] Sloane mckeon MD [facility] [address] [facility] [place] [address] 12/07/2022 12:17:44 12/07/2022 12:40:01 Insulin resistance 531531739 E88.81 on trulicity pt is aware of side effects, risks, benefitspt denies any personal or family history of MEN II or MTC, denies and personal history of pancreatit ispt knows to call the office if any severe n/v or abdominal pain Right uppe r quadrant pain 501728739 R10.11 s/p gallbladde r u/shas order for HIDA scan- recommend she get this donerecomm end low fat dietto ER if worse in the interim hasn't been bothering her lately so she hasn't gotten the HIDA done Iron defic iency anemia 27697850 D50.9 stable on last labs, on PNV Hyperlipidemia 71355926 E78.5 no meds currently, working on diet/exerc ise Obesity 807868090 E66.9 recommend healthy, well balanced mealsfocus on lean meats, fresh vegetables , fresh fruits, whole grainsredu ce fast/proce ssed foods or eating out to no more than 1-2 times per weekaim to get 30 min of exercise most days of the week- walking is a great choicealso recommend resistance training 2-3 times per week (once cleared by surgeon) Vitamin B1 2 deficiency (non anemic) 52971110 E53.8 on PO supplement Attention deficit hyperactivity disorder 756212060 F90.9 follows psychiatry at [facility] calling today to get an [facility] any change in mood or behavior Bipolar disorder 2030385 4 F31.9 as above Polycystic ovary syndrome 868735825 E28.2 follows DEVELOPMENT [employer] PLANNING ENGINEER Migraine 22964138 G43.90 9 had severe reaction to sumatripta n was previously on Qulipta, does not feel she needs a daily preventati ve right now [facility] works well for her, but insurance denied unless it comes from a neurologis t, will have her see neuro ER precaution s- if severe LOWE or any neuro sx 2 sample boxes given to patient today Allergic rhinitis 228766 04 J30.9 now following manager of operations- Dr. Lilly Vitamin D deficiency 347 24508 E55.9 on daily supplement OTC Chronic hepatitis C 1283 05253 B18.2 following GI- Dr. Cardona ts meds this weekend Liver enzy mes level above reference range 924349031 R74.01 as above- chronic hep c infection Ex-smoker 7865962 Z87.89 1 Health Concerns Section Related Observation LastModified by Organization Detai ls LastModified Time None Recorded Concern Status LastModified by Organization Details LastModified Time None Recorded Advance Directives Directive None Recorded Payers Encounter Date Sequence Insurance Name Policy Number Policy Evans Covered Member ID Evans Member ID Guarantor Name 09/25/2022 1 [facility] - DOS ON OR AFTER 20 (MEDICAID REPLACEMENT - HMO) Cuong Toyah [id number] Cuong Connor 12/07/2022 1 [facility] - DOS ON OR AFTER 20 (MEDICAID REPLACEMENT - HMO) Cuong Connor [id number] Cuong Connor Notes Date Note Type Note Provider Name and Address Organization Details Recorded Time 09/25/2022 text/html [facility]. She is also due for her annual wellness exam. She reports she had her 2nd daughter approximately 2 and half months ago. She has been coping well with now caring for 2 kids under 2. Feels like her mood is stable. She denies any SI or HI. She had a bilateral tubal ligation last week with Dr. Marino. She has been healing well from that. She has her follow-up with him in a couple of weeks. She is planning to restart her Adderall now that she is no longer . She is not . She plans to call her psychiatrist to get an appointment. She also reports she has a call out to her GI doctor to restart medication for her hepatitis-C. They had to stop that process last year she became . She would like to restart her migraine medication. She had a change of insurance so now Nurtec is preferred. She previously has had a very severe reaction to the Triptan class. Previously she was also on Qulipta for migraine prevention, she tells me the headaches have not been as bad lately. She does not feel like she needs a preventative medicine. She only feels like she needs the abortive therapy. Previously she was on Ozempic. She would like to restart that. With her new insurance they do not cover Ozempic but they will cover Trulicity so she would like to start that instead. She denies any personal or family history of thyroid cancer, denies any personal history of pancreatitis. She is due for labs. Marleny Lemus, GAS TRANSFER OPERATOR-C [address], [place], [address], [place] [employer] 09/25/2022 13:20:30 12/07/2022 text/html Cuong presents to day for follow up. We started her last visit on Nurtec for the migraines. She reports that works very well for her. She cannot take any triptans due to previous severe reaction. We tried to get the Nurtec approved for her, however her insurance denied it multiple times. They will approve it if I send her to a neurologist. She reports she is following GI for the hepatitis-C. She finally got her medicine in this week and plans to start it this weekend. She continues to follow psychiatry for her mood meds. She denies any SI or HI today. She started the Trulicity and did well on it for a few weeks but then had forgotten it for a few weeks. She restarted it this week and has been tolerating it without issue. Marleny Lemus, GAS TRANSFER OPERATOR-C [address], [facility] [address], [place], [address], [employer] 12/07/2022 12:43:24 OBGyn Episode No OBEpisode recorded.
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
--- OUTSIDE RECORDS SUMMARY | 2024-08-11 07:26 | XMS_ITS | Data Portability ---
Author Organization [facility] , [facility] Address [address] [place] [address] Assessment Encounter Date Assessment Date Assessment LastModified by Organization Details LastModified Time 05/08/2021 05/08/2021 Telemed lasted 6 minutes via phone. [email or web address] Not available 05/08/2021 17:05:51 Plan of Treatment Reminders Order Date Submit Date Provider Last Modified By Organization Details Last Modified Time Details Appointments None recorded. Lab streptococc us group B DNA 2021 022 DBA_PATCH _[id number] [facility], [address] [place] [address], [id number], 3 03:39:08 Referral None recorded. Procedures None recorded. Surgeries None recorded. Imaging US, obstetric - Please do U/S for growth within 1-2 weeks for S>D. [email or web address], [address] [place], [address], 2 17:19:29 Medication Orders None recorded. Patient TargetsNo targets recorded. Patient InstructionsNo instructions recorded. Reason for Referral None Reported. Results Created Date Observation Date Name Description Value Unit Range Abnormal Flag Note LastModifiedBy Organization Detail LastModifiedTime 03/14/2003/14/2021 URINA LYSIS , CULTU RE IF INDIC ATED color, urine Light Yellow colorl ess, light- yellow , yellow , dark-y ellow Not Available [facility] [address] [place], [address], 03/14/2021 11:33:19 03/14/20 21 03/14/2021 URINA LYSIS , CULTU RE IF INDIC ATED appearance, urine Clear clear Not Available [facility] [address] [place], [address], 03/14/2021 11:33:19 03/14/20 21 03/14/2021 URINA LYSIS , CULTU RE IF INDIC ATED specific gravity,urin e 1.017 1.010- 1.025 Not Available [facility] [address] [place] [address], [id number], 03/14/2021 11:33:19 03/14/20 21 03/14/2021 URINA LYSIS , CULTU RE IF INDIC ATED pH,urine 7.0 [pH] 5-8 Not Available [facility] [address] [place] [address], [address], 03/14/2021 11:33:19 03/14/20 21 03/14/2021 URINA LYSIS , CULTU RE IF INDIC ATED leukocyte esterase, urine Negati ve negati ve Not Available [facility] [address] [place] [address], [address], 03/14/2021 11:33:19 03/14/20 21 03/14/2021 URINA LYSIS , CULTU RE IF INDIC ATED nitrite, urine Negati ve negati ve Not Available [facility] [address] [place] [address], [address], 03/14/2021 11:33:19 03/14/20 21 03/14/2021 URINA LYSIS , CULTU RE IF INDIC ATED protein, urine Negati ve mg/dL negati ve Not Available [facility] [address] [place] [address], [address], 03/14/2021 11:33:19 03/14/20 21 03/14/2021 URINA LYSIS , CULTU RE IF INDIC ATED glucose, urine Normal mg/dL normal /negat kumar Not Available [facility] [address] [place] [address], [address], 03/14/2021 11:33:19 03/14/20 21 03/14/2021 URINA LYSIS , CULTU RE IF INDIC ATED ketone 40 mg/dL negati ve abnormal Not Available [facility] [address] [place] [address], [address], 03/14/2021 11:33:19 03/14/20 21 03/14/2021 URINA LYSIS , CULTU RE IF INDIC ATED urobilinogen Normal mg/dL normal Not Available [facility] [address] [place] [address], [address], 03/14/2021 11:33:19 03/14/20 21 03/14/2021 URINA LYSIS , CULTU RE IF INDIC ATED occult blood urine Negati ve negati ve Not Available [facility] [address] [place] [address], [address], 03/14/2021 11:33:19 03/14/20 21 03/14/2021 URINA LYSIS , CULTU RE IF INDIC ATED bilirubin, urine Negati ve negati ve Not Available [facility] [address] [place] [address], [id number], 03/14/2021 11:33:19 04/04/19 22 04/06/2021 GROUP B STREP DNA group B strep DNA GBS neg negati ve Metho d of testi ng for Group B Strep tococ cus is DNA by PCR. This assay does not monit or treat ment or provi de susce ptibi lity for GBS. Addit ional swab requi red if reque sting susce ptibi lity testi ng. Sourc e:Vag inal/ Recta l Not Available [facility] [address] [place], [address], 04/06/2021 15:23:16 04/07/19 22 04/07/2021 URINA LYSIS , CULTU RE IF INDIC ATED color, urine Yellow colorl ess, light- yellow , yellow , dark-y ellow Not Available [facility] [address] [place] [address], [address], 04/07/2021 13:44:11 04/07/19 22 04/07/2021 URINA LYSIS , CULTU RE IF INDIC ATED appearance, urine Clear clear Not Available [facility] [address] [place], [address], 04/07/2021 13:44:11 04/07/19 22 04/07/2021 URINA LYSIS , CULTU RE IF INDIC ATED specific gravity,urin e 1.029 1.010- 1.025 Not Available [facility] [address] [place] [address], [address], 04/07/2021 13:44:11 04/07/19 22 04/07/2021 URINA LYSIS , CULTU RE IF INDIC ATED pH,urine 6.5 [pH] 5-8 Not Available [facility] [address] [place] [address], [address], 04/07/2021 13:44:11 04/07/19 22 04/07/2021 URINA LYSIS , CULTU RE IF INDIC ATED leukocyte esterase, urine 75 negati ve abnormal Not Available [facility] [address] [place] [address], [address], 04/07/2021 13:44:11 04/07/19 22 04/07/2021 URINA LYSIS , CULTU RE IF INDIC ATED nitrite, urine Negati ve negati ve Not Available [facility] [address] [place] [address], [address], 04/07/2021 13:44:11 04/07/19 22 04/07/2021 URINA LYSIS , CULTU RE IF INDIC ATED protein, urine 30 mg/dL negati ve abnormal Not Available [facility] [address] [place], [address], 04/07/2021 13:44:11 04/07/19 22 04/07/2021 URINA LYSIS , CULTU RE IF INDIC ATED glucose, urine Normal mg/dL normal /negat kumar Not Available [facility] [address] [place] [address], [address], 04/07/2021 13:44:11 04/07/19 22 04/07/2021 URINA LYSIS , CULTU RE IF INDIC ATED ketone Trace mg/dL negati ve Not Available [facility] [address] [place] [address], 1930[address], 04/07/2021 13:44:11 04/07/19 22 04/07/2021 URINA LYSIS , CULTU RE IF INDIC ATED urobilinogen Normal mg/dL normal Not Available [facility] [address] [place], [address], 04/07/2021 13:44:11 04/07/19 22 04/07/2021 URINA LYSIS , CULTU RE IF INDIC ATED occult blood urine Negati ve negati ve Not Available [facility] [address] [place] [address], [address], 04/07/2021 13:44:11 04/07/19 22 04/07/2021 URINA LYSIS , CULTU RE IF INDIC ATED Unknown Analyte /[hpf ] none seen abnormal 0-2 6-10 1-5 Trace Not Available [facility] [address] [place] [address], [address], 04/07/2021 13:44:11 04/07/19 22 04/07/2021 URINA LYSIS , CULTU RE IF INDIC ATED Unknown Analyte 2+ /[hpf ] negati ve abnormal Not Available [facility] [address] [place] [address], [address], 04/07/2021 13:44:11 04/07/19 22 04/07/2021 URINA LYSIS , CULTU RE IF INDIC ATED bilirubin, urine Negati ve negati ve Not Available [facility] [address] [place] [address], [address], 04/07/2021 13:44:11 04/07/19 22 04/07/2021 URINA LYSIS , CULTU RE IF INDIC ATED color, urine Yellow colorl ess, light- yellow , yellow , dark-y ellow Not Available [facility] [address] [place] [address], [address], 04/08/2021 11:19:14 04/07/19 22 04/07/2021 URINA LYSIS , CULTU RE IF INDIC ATED appearance, urine Clear clear Not Available [facility] [address] [place] [address], [address], 04/08/2021 11:19:14 04/07/19 22 04/07/2021 URINA LYSIS , CULTU RE IF INDIC ATED specific gravity,urin e 1.029 1.010- 1.025 Not Available [facility] [address] [place] [address], [address], 04/08/2021 11:19:14 04/07/19 22 04/07/2021 URINA LYSIS , CULTU RE IF INDIC ATED pH,urine 6.5 [pH] 5-8 Not Available [facility] [address] [place] [address], [address], 04/08/2021 11:19:14 04/07/19 22 04/07/2021 URINA LYSIS , CULTU RE IF INDIC ATED leukocyte esterase, urine 75 negati ve abnormal Not Available [facility] [address] [place] [address], [address], 04/08/2021 11:19:14 04/07/19 22 04/07/2021 URINA LYSIS , CULTU RE IF INDIC ATED nitrite, urine Negati ve negati ve Not Available [facility] [address] [place] [address], [address], 04/08/2021 11:19:14 04/07/19 22 04/07/2021 URINA LYSIS , CULTU RE IF INDIC ATED protein, urine 30 mg/dL negati ve abnormal Not Available [facility] [address] [place] [address], [address], 04/08/2021 11:19:14 04/07/19 22 04/07/2021 URINA LYSIS , CULTU RE IF INDIC ATED glucose, urine Normal mg/dL normal /negat kumar Not Available [facility] [address] [place] [address], [address], 04/08/2021 11:19:14 04/07/19 22 04/07/2021 URINA LYSIS , CULTU RE IF INDIC ATED ketone Trace mg/dL negati ve Not Available [facility] [address] [place], [address], 04/08/2021 11:19:14 04/07/19 22 04/07/2021 URINA LYSIS , CULTU RE IF INDIC ATED urobilinogen Normal mg/dL normal Not Available [facility] [address] [place] [address], [address], 04/08/2021 11:19:14 04/07/19 22 04/07/2021 URINA LYSIS , CULTU RE IF INDIC ATED occult blood urine Negati ve negati ve Not Available [facility] [address] [place] [address], [address], 04/08/2021 11:19:14 04/07/19 22 04/07/2021 URINA LYSIS , CULTU RE IF INDIC ATED Unknown Analyte /[hpf ] none seen abnormal 0-2 6-10 1-5 Trace Not Available [facility] [address] [place] [address], [address], 04/08/2021 11:19:14 04/07/19 22 04/07/2021 URINA LYSIS , CULTU RE IF INDIC ATED Unknown Analyte 2+ /[hpf ] negati ve abnormal Not Available [facility] [address] [place] [address], [address], 04/08/2021 11:19:14 04/07/19 22 04/07/2021 URINA LYSIS , CULTU RE IF INDIC ATED bilirubin, urine Negati ve negati ve Not Available [facility] [address] [place] [address], [address], 04/08/2021 11:19:14 04/07/19 22 04/07/2021 URINE CULTU RE urine culture Mixed urogen ital namrata Not Available [facility] [address] [place] [address], [address], 04/09/2021 11:07:21 04/07/19 22 04/07/2021 URINA LYSIS , CULTU RE IF INDIC ATED color, urine Yellow colorl ess, light- yellow , yellow , dark-y ellow Not Available [facility] [address] [place] [address], [address], 04/09/2021 11:07:20 04/07/19 22 04/07/2021 URINA LYSIS , CULTU RE IF INDIC ATED appearance, urine Clear clear Not Available [facility] [address] [place], [address], 04/09/2021 11:07:20 04/07/19 22 04/07/2021 URINA LYSIS , CULTU RE IF INDIC ATED specific gravity,urin e 1.029 1.010- 1.025 Not Available [facility] [address] [place] [address], [address], 04/09/2021 11:07:20 04/07/19 22 04/07/2021 URINA LYSIS , CULTU RE IF INDIC ATED pH,urine 6.5 [pH] 5-8 Not Available [facility] [address] [place], [address], 04/09/2021 11:07:20 04/07/19 22 04/07/2021 URINA LYSIS , CULTU RE IF INDIC ATED leukocyte esterase, urine 75 negati ve abnormal Not Available [facility] [address] [place], [address], 04/09/2021 11:07:20 04/07/19 22 04/07/2021 URINA LYSIS , CULTU RE IF INDIC ATED nitrite, urine Negati ve negati ve Not Available [facility] [address] [place], [address], 04/09/2021 11:07:20 04/07/19 22 04/07/2021 URINA LYSIS , CULTU RE IF INDIC ATED protein, urine 30 mg/dL negati ve abnormal Not Available [facility] [address] [place], [address], 04/09/2021 11:07:20 04/07/19 22 04/07/2021 URINA LYSIS , CULTU RE IF INDIC ATED glucose, urine Normal mg/dL normal /negat kumar Not Available [facility] [address] [place] [address], [address], 04/09/2021 11:07:20 04/07/19 22 04/07/2021 URINA LYSIS , CULTU RE IF INDIC ATED ketone Trace mg/dL negati ve Not Available [facility] [address] [place] [address], [address], 04/09/2021 11:07:20 04/07/19 22 04/07/2021 URINA LYSIS , CULTU RE IF INDIC ATED urobilinogen Normal mg/dL normal Not Available [facility] [address] [place], [address], 04/09/2021 11:07:20 04/07/19 22 04/07/2021 URINA LYSIS , CULTU RE IF INDIC ATED occult blood urine Negati ve negati ve Not Available [facility] [address] [place], [address], 04/09/2021 11:07:20 04/07/19 22 04/07/2021 URINA LYSIS , CULTU RE IF INDIC ATED Unknown Analyte /[hpf ] none seen abnormal 0-2 6-10 1-5 Trace Not Available [facility] [address] [place], [address], 04/09/2021 11:07:20 04/07/19 22 04/07/2021 URINA LYSIS , CULTU RE IF INDIC ATED Unknown Analyte 2+ /[hpf ] negati ve abnormal Not Available [facility] [address] [place], [address], 04/09/2021 11:07:20 04/07/19 22 04/07/2021 URINA LYSIS , CULTU RE IF INDIC ATED bilirubin, urine Negati ve negati ve Not Available [facility] [address] [place], [address], 04/09/2021 11:07:20 03/28/19 22 03/27/2021 US, obste tric, 2nd or 3rd trime ster, singl e gesta tion No observ ation record ed. [email or web address] Not Available 2021 15:37:53 Result Notes None recorded. Problems Name Problem SNOMED Code Status Onset Date Resolution Date Notes Provider Name and Address Organization Details Recorded Time 65977140 Completed 202003/21/2021 Theresa fernandez, [facility] IV 2 16:15:32 Alcoholic fatty liver 51841571 Active 2020 Theresa fernandez, [employer] [facility] 1 11:07:26 Polycystic ovary syndrome 653605282 Active 2020 Theresacamelia Jacobsongeo null, [facility] IV 11:07:40 Problem Notes None recorded. Medical Equipment None Reported. Allergies No known drug allergies Medications Name Sig Start Date Stop Date Status Note LastModified by Organization Details LastModified Time ibuprofen 800 mg tablet TAKE 1 TABLET BY MOUTH EVERY 6 HOURS NEEDED FOR MILD PAIN active Not Available Not Available No t Available ondansetron HCl 4 mg tablet Take 1 tablet every 6 hours by oral route. active Not Available Not Available No t Available aspirin 81 mg tablet,delay ed release 03/21 completed Not Available Not Available Not Available progesterone micronized 200 mg capsule 03/21 completed Not Available Not Available Not Available mirtazapine 15 mg tablet TAKE 1 TABLET BY MOUTH EVERY DAY AT BEDTIME FOR 30 DAYS active Not Available Not Available No t Available dextroamphet amine-amphet amine ER 30 mg 24hr capsule,exte nd release TAKE 1 CAPSULE BY MOUTH EVERY DAY IN THE MORNING active Not Available Not Available No t Available lamotrigine 100 mg tablet TAKE 1 TABLET BY MOUTH EVERY DAY *DISCONT INUE IF RASH OCCURS* active Not Available Not Available No t Available Folbee 2.5 mg-25 mg-1 mg tablet 03/21 completed Not Available Not Available Not Available Tums Dual Action (famotidine) active Not Available Not Available Not Available Tylenol 325 mg capsule Take by oral route. active PRN Not Available Not Available No t Available Se- 19 29 mg iron-1 mg tablet active Not Available Not Available No t Available Vitals Date Recorded Body height Body mass index (BMI) Body weight Heart rate Systolic And Diastolic Provider Name and Address Organization Details Last Updated DateTime 03/21/2021 157.48 cm 41.7 kg/m2 633325.0 6036 g 107 /min 114/75 mm[Hg] Theresa Jacobsongeo [facility] [employer] 03/21/2021 16:08:58 Date Recorded Body weight Provider Name an d Address Organization Details Last Updated DateTime 04/04/2021 375959.50224 g NADEGE MENDEZ MD [address] [facility], [place], [address], [employer] 04/04/2021 10:34:08 Date Recorded Body height Body mass index (BMI) Heart rate Systolic And Diastolic Provider Name and Address Organization Details Last Updated DateTime 04/04/2021 157.48 cm 41.2 kg/m2 109 /min 115/75 mm[Hg] Theresa Coronado [facility] [employer] [facility] 04/04/2021 10:03:19 Date Recorded Body weight Systolic And Diastolic Provider Name and Address Organization Details Last Updated DateTime 04/11/2021 684515.45503 g 118/77 mm[Hg] [facility] [employer] [facility] 04/11/2021 12:34:00 Date Recorded Body weight Body mass index (BMI) Body height Systolic And Diastolic Provider Name and Address Organization Details Last Updated DateTime 04/18/2021 151246.06 036 g 41.7 kg/m2 157.48 cm 114/78 mm[Hg] [facility] [employer] [facility] 04/18/2021 11:16:01 Social History Question Answer Notes LastModified by [employer] Details LastModified Time Tobacco Smoking Status Never Smoker Theresa Coronado [facility] [employer] [facility] 02/03/2021 11:11:13 If You Are , What Was Your Level Of Alcohol Consumption Prior To ? None Information not available 02/03/2021 Are You Blind Or Do You Have Difficulty Seeing? No Information not available 02/03/2021 Are You Deaf Or Do You Have Serious Difficulty Hearing? No Information not available 02/03/2021 What Type Of Diet Are You Following? REGULAR Information not available 02/03/2021 What Is The Highest Grade Or Level Of School You Have Completed Or The Highest Degree You Have Received? [id number] Information not available 02/03/2021 What Is Your Relationship Status? Information not available 02/03/2021 Are You Sexually Active? Yes Information not available 02/03/2021 Sex: Unknown Functional Status Question Answer Note LastModified by Organizat ion Details LastModified Time Do you use any illicit or recreational drugs? No Information not available 02/03/2021 What is your level of alcohol consumption? None Information not available 02/03/2021 Are you currently employed? 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 Occasional Information not available 02/03/2021 Mental Status None recorded. Family History Nothing Reported. Medical History Condition Response Other Cancer N High Blood Pressure N Colon Cancer N Cytomegalovirus N Hyperthyroidism N Herpes (HSV) N Breast Cancer N Blood Transfusion N MRSA N Lung Cancer N Hypothyroidism N Depression N Incontinence N Panic Attacks N Neurological Disorder N Deep Vein Thrombosis N Anxiety Disorder N Autoimmune disease N Arthritis N Tuberculosis/Positive PPD N Shingles N Polycystic Ovarian Syndrome N Cervical Cancer N Chlamydia N Hematuria N Stroke N Varicosities N Crohn's Disease N Seasonal allergies Y Alzheimer's/Dementia N COPD/Emphysema N HPV/Genital Warts N Endometriosis N IBS (Irritable Bowel Syndrome) N History of Abnormal Pap N High Cholesterol N Liver Disease Y Kidney Infection N Fibromyalgia N Ulcer N Kidney Disease N HIV N Gallbladder disease N Sickle Cell Disease/Trait N Von Willebrand disease N ADD/ADHD N Eating Disorder N Anemia N Diabetes Mellitus (non-insulin dependent ) N Ovarian Problems N Multiple Sclerosis N Gonorrhea N Frequent Urinary Tract infections N Osteopenia N Headaches/migraines N GERD (reflux) N Ovarian Cancer N Diabetes (insulin dependent) N Seizures/Epilepsy N Fibroids N Heart Attack N Asthma N Lupus N Endometrial Cancer N Rubella N Blood Clotting Disorder N Bipolar Disorder N Diabetes Mellitus (during ) N Ulcerative Colitis N Hepatitis N Heart Disease N Pulmonary Embolism N RPR N Chicken Pox N Osteoporosis N Gynecological History Statement/Question Response Flow Moderate Date of LMP 07/24/2020 Frequency of Cycle (Q days) 28 HPV Vaccine N Duration of Flow (days) 5 Current Control Method Age at Menarche 13 Obstetrics History GPAL:G 3 P 1 0 2 1 Type Value Multiple Births 0 Full Term 1 Induced 0 Spontaneous 2 Premature 0 Living 1 Ectopics 0 Total 3 Immunizations Vaccine Type Date Status Note Provider Nam e and Address Organization Details Recorded Time COVID-19, mRNA, LNP-S, PF, 30 mcg/0.3 mL dose 03/19/2021 completed Theresa fernandez [facility] 03/21/2021 16:14:22 Past Encounters Encounter ID Performer Location Encounter Start Date Encounter Closed Date Diagnosis/Indication Diagnosis SNOMED-CT Code Diagnosis ICD10 Code Diagnosis Note [id number] NADEGE MENDEZ MD [facility] [address] 02/03/2021 09:06:11 02/03/2021 11:54:47 Routine care 294258875 Z34.02 [id number] NADEGE MENDEZ MD [address] [address] 02/17/2021 14:22:07 02/17/2021 16:15:47 Routine care 979676282 Z34.02 [id number] NADEGE MENDEZ MD [address] [address] 03/06/2021 15:35:15 03/06/2021 16:16:19 Routine care 614357809 Z34.02 [id number] NADEGE MENDEZ MD [address] [address] 03/21/2021 15:43:51 03/21/2021 16:32:58 Routine care 401189060 Z34.02 [id number] NADEEG MENDEZ MD [address] [address] 04/04/2021 09:55:22 04/04/2021 10:46:19 Routine care 115322389 Z34.02 Vaginal swab taken 18220 3009 Z75.2 [id number] NADEGE MENDEZ MD [address] [address] 04/11/2021 12:00:46 04/11/2021 12:55:40 Routine care 487669468 Z34.02 [id number] NADEGE MENDEZ MD [address] [address] 4 04/18/2021 10:32:17 04/18/2021 11:31:25 Routine care 786791468 Z34.02 [id number] NADEGE MENDEZ MD [address] [address] 05/08/2021 16:46:40 05/08/2021 17:14:46 state, 2 weeks 69879349 Z39.2 Pt is doing well. Health Concerns Section Related Observation LastModified by Organization Detai ls LastModified Time None Recorded Concern Status LastModified by Organization Details LastModified Time None Recorded Advance Directives Directive None Recorded Payers Insurance Date Sequence Insurance Name Policy Number Policy Evans Covered Member ID Evans Member ID Guarantor Name 03/27/2021 1 [place] [id number] Fanny N [place] [id number] Fanny N [place] 04/04/2021 1 [place] [facility] [place] [facility] Fanny N [place] [id number] Fanny N [place] 07/10/2021 1 [place] [id number] [place] [id number] Fanny N [place] 11/02/2021 [facility] - DOS ON OR AFTER 20 (MEDICAID REPLACEMENT - HMO) Fanny N [place] [id number] Fanny N [place] 07/12/2021 2 [place] [facility] [place] [facility] Fanny N [place] [id number] Fanny N [place] Notes Date Note Type Note Provider Name and Address Organization Details Recorded Time 03/21/2021 text/html Pt was in L&D la st week since she had some vaginal bleeding from losing her mucous plug and some Linn Cal[place] contractions. She got IV fluids for dehydration. NADEGE MENDEZ MD [address] [place] [address], [place], [address], [facility] [employer] [facility] 03/21/2021 16:30:41 04/04/2021 text/html Pt states that s he started to get more painful contractions starting last night. No bleeding or leaking fluid and the baby is moving. She will have her GBS done today. NADEGE MENDEZ MD [address] [place] [address], [place], [address], [facility] [employer] [facility] 04/04/2021 10:44:17 04/11/2021 text/html _Fanny is h ere today for a routine OB visit. She is currently at __37___weeks gestation. She has no complaints or questions. She is taking vitamins. She has has felt movement. She denies the presence of 2nd/3rd trimester vaginal bleed, leaking fluid, abdominal cramps. Patient stated that she has been having some contractions. She also stated that Saturday she was dizzy and light headed anytime she stood up or was sitting down and looked up. NADEGE MENDEZ MD [address] [place] [address], [address], [facility] [employer] IV 04/11/2021 12:53:49 04/18/2021 text/html _Fanny is h ere today for a routine OB visit. She is currently at __38.2___weeks gestation. She has no complaints or questions. She is taking vitamins. She has has felt movement. She denies the presence of 2nd/3rd trimester vaginal bleed, leaking fluid, abdominal cramps. NADEGE MENDEZ MD [address] [place] [address], [place], [address], [facility] [employer] IV 04/18/2021 11:28:53 05/08/2021 text/html VisitReported bypatient.Onset/Raffi ing:date of delivery:; [id number] Quality:VAVD Context:complicatio ns of labor: ; complications: ; feeding choice: breast 26y/o who is S/P VAVD on 04/23 and presents for 2 week exam. Pt is without complaints. Pt doesn't desire anything for contraception presently. NADEGE MENDEZ MD [address] [place] [address], [place], [address], [facility] [employer] 05/08/2021 17:06:21 OBGyn Episode Ob Episode Information Episode Created Date Number of Fetuses Patient Bloodtype Patient rh Status Prepregnancy Weight lbs Domestic Partner Domestic Partner Phone Father Name Nutrition Counselor Status 02/04/20 21 1 CLOSED Fetus Data First Name Last Name Admitted to NICU Weight (g) Sex Living Outcome Pediatric Complications Fetus ID Race Codes Race Delivery Type , [place] [id number] Ismael Calculation Initial Ismael Date Initial Exam Date Initial Exam Provider Initial Ultrasound Date Last Menstrual Period Date Ultra Sound Weeks Gestation 0 Eighteen To Twenty Week Ismael Update Ultra Sound Date Fundal Height At Umbil Quickening Date Ultra Sound Latest Weeks Gestation Final Ismael Confirmed By Final Ismael Confirmed Date Final Ismael Date Ultra Sound Latest Days Gestation 0 0 Menstrual History Last Menstrual Date Menses Monthly On Bcp Conception Prior Menses Frequency Hcg Plus Date Menarche Onset Age Delivery Information Delivery Date Delivery Type Labor Anesthesia Weeks Gestation Incision Type Labor Labor Length Hrs Delivered By Post Complications Tubal Sterilization Discharge Date Comments 8 7 No D&C Discharge Information Feeding Method Contraceptive Method Maternal HG B and HCT Levels Ob Episode Information Episode Created Date Number of Fetuses Patient Bloodtype Patient rh Status Prepregnancy Weight lbs Domestic Partner Domestic Partner Phone Father Name Nutrition Counselor Status 02/04/20 21 1 CLOSED Fetus Data First Name Last Name Admitted to NICU Weight (g) Sex Living Outcome Pediatric Complications Fetus ID Race Codes Race Delivery Type , [place] o[place] [id number] Ismael Calculation Initial Ismael Date Initial Exam Date Initial Exam Provider Initial Ultrasound Date Last Menstrual Period Date Ultra Sound Weeks Gestation 0 Eighteen To Twenty Week Ismael Update Ultra Sound Date Fundal Height At Umbil Quickening Date Ultra Sound Latest Weeks Gestation Final Ismael Confirmed By Final Ismael Confirmed Date Final Ismael Date Ultra Sound Latest Days Gestation 0 0 Menstrual History Last Menstrual Date Menses Monthly On Bcp Conception Prior Menses Frequency Hcg Plus Date Menarche Onset Age Delivery Information Delivery Date Delivery Type Labor Anesthesia Weeks Gestation Incision Type Labor Labor Length Hrs Delivered By Post Complications Tubal Sterilization Discharge Date Comments 5 7 No D&C Discharge Information Feeding Method Contraceptive Method Maternal HG B and HCT Levels Ob Episode Information Episode Created Date Number of Fetuses Patient Bloodtype Patient rh Status Prepregnancy Weight lbs Domestic Partner Domestic Partner Phone Father Name Nutrition Counselor Status 02/04/20 21 1 A Positive [address] [place] CLOSED Fetus Data First Name Last Name Admitted to NICU Weight (g) Sex Living Outcome Pediatric Complications Fetus ID Race Codes Race Delivery Type 3288.54 2 F true Full Term [id number] Assisted VD - forceps, vacuum Ismael Calculation Initial Ismael Date Initial Exam Date Initial Exam Provider Initial Ultrasound Date Last Menstrual Period Date Ultra Sound Weeks Gestation 04/30/2021 11/01/2020 09/12/2020 07/24/2020 6 Eighteen To Twenty Week Ismael Update Ultra Sound Date Fundal Height At Umbil Quickening Date Ultra Sound Latest Weeks Gestation Final Ismael Confirmed By Final Ismael Confirmed Date Final Ismael Date Ultra Sound Latest Days Gestation 0 [email or web address] 02/03/2021 04/30/19 22 0 Pre-darcy Flowsheet Flowsheet Date 02/03/2021 Alcocer Score Blood Edema Fundus Height Fundus Units Glucose Ketones Leukocytes Nitrite Labor Signs Protein Cervic Dilation Cervic Effacement Cervic Station none 29.5 cm Cramping Type Weight in lbs Pre/Post Dialysis Refused With clothes 229.517179361498 BP Diastolic BP Location Tested BP Systolic BP Type 80 L arm 118 sitting Fetus Heart Rate Present A 153 Present Fetus Movement A Yes Comments Pt did 50g today. Pt is S/P flu vaccine. PTL precautions/FKC reviewed with pt. Flowsheet Date 02/17/2021 Alcocer Score Blood Edema Fundus Height Fundus Units Glucose Ketones Leukocytes Nitrite Labor Signs Protein Cervic Dilation Cervic Effacement Cervic Station none 31.5 none Linn Caldwell 1+ Type Weight in lbs Pre/Post Dialysis Refused With clothes 228.638972910585 BP Diastolic BP Location Tested BP Systolic BP Type 67 L arm 104 sitting Fetus Heart Rate Present A 145 Present Fetus Movement A Yes Comments Labs reviewed with pt. PTL p recautions/FKC reviewed with pt. Flowsheet Date 03/06/2021 Alcocer Score Blood Edema Fundus Height Fundus Units Glucose Ketones Leukocytes Nitrite Labor Signs Protein Cervic Dilation Cervic Effacement Cervic Station none 34 cm none Uterine Contract ions trace Type Weight in lbs Pre/Post Dialysis Refused With clothes 225.672631066653 BP Diastolic BP Location Tested BP Systolic BP Type 77 L arm 121 sitting Fetus Heart Rate Present A 147 Present Fetus Movement A Yes Comments PTL precautions/FKC reviewed with pt. Flowsheet Date 03/21/2021 Alcocer Score Blood Edema Fundus Height Fundus Units Glucose Ketones Leukocytes Nitrite Labor Signs Protein Cervic Dilation Cervic Effacement Cervic Station none 36 cm none Uterine Contract ions trace Type Weight in lbs Pre/Post Dialysis Refused Weight 228.821735314113 BP Diastolic BP Location Tested BP Systolic BP Type 75 L arm 114 sitting Fetus Heart Rate Present A 138 Present Fetus Movement A Yes Comments Please do GBS @ next visit. Please do U/S for growth @ next visit. PTL precautions/FKC reviewed with pt. Flowsheet Date 04/04/2021 Alcocer Score Blood Edema Fundus Height Fundus Units Glucose Ketones Leukocytes Nitrite Labor Signs Protein Cervic Dilation Cervic Effacement Cervic Station none 38 cm Uterine Contract ions 3cm 70% -2 Type Weight in lbs Pre/Post Dialysis Refused With clothes 225.581818240333 BP Diastolic BP Location Tested BP Systolic BP Type 75 L arm 115 sitting Fetus Heart Rate Present A 125 Present Fetus Movement A Yes Comments U/S reviewed with pt. GBS do ne today. PTL precautions/FKC reviewed with pt. Flowsheet Date 04/11/2021 Alcocer Score Blood Edema Fundus Height Fundus Units Glucose Ketones Leukocytes Nitrite Labor Signs Protein Cervic Dilation Cervic Effacement Cervic Station none 39 cm none Uterine Contract ions trace Type Weight in lbs Pre/Post Dialysis Refused With clothes 226.778888053889 BP Diastolic BP Location Tested BP Systolic BP Type 77 L arm 118 sitting Fetus Heart Rate Present A 147 Present Fetus Movement A Yes Comments Labs reviewed with pt. Labor precautions/FKC reviewed with pt. Flowsheet Date 04/18/2021 Alcocer Score Blood Edema Fundus Height Fundus Units Glucose Ketones Leukocytes Nitrite Labor Signs Protein Cervic Dilation Cervic Effacement Cervic Station none 39.5 cm none Uterine Contract ions trace 4cm 80% -2 Type Weight in lbs Pre/Post Dialysis Refused With clothes 228.042454996499 BP Diastolic BP Location Tested BP Systolic BP Type 78 L arm 114 sitting Fetus Heart Rate Present A 153 Present Fetus Movement A Yes Comments Labor precautions/FKC review ed with pt. Flowsheet Date 05/08/2021 Alcocer Score Blood Edema Fundus Height Fundus Units Glucose Ketones Leukocytes Nitrite Labor Signs Protein Cervic Dilation Cervic Effacement Cervic Station Type Weight in lbs Pre/Post Dialysis Refused BP Diastolic BP Location Tested BP Systolic BP Type Fetus Heart Rate Present Fetus Movement Comments Menstrual History Last Menstrual Date Menses Monthly On Bcp Conception Prior Menses Frequency Hcg Plus Date Menarche Onset Age 0507/24/2020 false 28 1 12 Genetic Screening And Infection History Question Response Note Recent Travel History Outside of Country false Cystic Fibrosis false Any Other Genetic History false Lc Disease false Other Infection History false Thalassemia (Romansh, Uzbek, Mediterranean, Or Background): MCV < 80 false Patient Or Baby's Father Had A Child With Defects Not Listed Above false Live With Someone With TB Or Exposed To TB false Patient's Age Will Be 35 Years Or Older At Estim ated Date of Delivery false Recurrent Loss, Or A Stillbirth false Hemoglobinopathy Or Carrier false Patient Or Partner Has History Of Genital Herpes false Intellectual Disability/Autism false Maternal Metabolic Disorder (eg, Type 1 Diabetes , PKU) false History of Hepatitis false Barry-Sachs (eg, Mandaeism, Cajun, Taiwanese-South African) f alse History Of STD, Gonorrhea, Chlamydia, HPV, Syphi lis false Prior GBS-infected child false History of HIV false Personal or Family History o f Neural Tube Defect (Meningomyelocele, Spina Bifida, Or Anencephaly) false Hemophilia Or Other Blood Disorders false Mental Retardation/Autism false [place]'s Chorea false If Yes, Was Person Tested For Fragile X? false Other Inherited Genetic Or Chromosomal Disorder false If Yes, Agent(s) And Strength/Dosage false Sickle Cell Disease Or Trait () false Personal or Family History of Congenital Heart D efect false Rash Or Viral Illness Since Last Menstrual Perio d false Muscular Dystrophy false Medications (including Suppl ements, Vitamins, Herbs, OTC Drugs), Illicit/Recreational Drugs, Alcohol false Other Structural Defect false Down Syndrome false Delivery Information Delivery Date Delivery Type Labor Anesthesia Weeks Gestation Incision Type Labor Labor Length Hrs Delivered By Post Complications Tubal Sterilization Discharge Date Comments 2 Sponta neous Regional-Ep idural 39 false Nadege Mendez MD Discharge Information Feeding Method Contraceptive Method Maternal HG B and HCT Levels Breast
== END 2024-08-11 07:21 | disposition home or self-care (01) ==
LOC: ANHIMG 07:22
PROVIDERS: PCP Family Medicine; Visit Provider Family Medicine
DX: K76.9 Liver disease, unspecified (principal)
CPT/HCPCS: 76705

== ENCOUNTER 2024-12-15 08:59 | Outpatient (CLI) | payer OTHER, SELFPAY ==
--- OUTSIDE RECORDS SUMMARY | 2024-12-15 09:27 | XMS_ITS | Clinical Summary ---
Author Organization [facility] Address [address] [place] [address] Care Team Providers Care Employment Coach Name Role Phone Trev Rodriguez MD Primary Care Provider [phone] Source Comments [facility],non-owned Affiliates and Associated Physician Practices is amultiple site organization consisting of ambulatory clinics and hospital sitesin [place], [place], [place] and [place]. This disclosure is being madepursuant to the Care Everywhere program and may not contain all information available regarding this patient. Last updated 17.[facility] Allergies No known active allergies Medications * [...] drink = 0.6 oz pur e alcohol) Converse Depression Scale Answer Date Recorded Converse Depression Scale Total 8 05/09/2022 The thought of harming myself has occurred to me . 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 * Guarantor: FANNY ARREAGA Account Type Relation to Patient Date of Phone Billing Address Personal/Family [address] [id number] [facility] SELF PAY NO INSURANCE Member Subscriber Plan / Payer (Ef fective for All Dates) Name:Fanny Arreaga Member ID:Not on file Relation to Subscriber:Not on file Name:FANNY ARREAGA Subscriber ID:Not on file (Home) Address: [address] [place] [address] Payer ID:Not on file Group ID:Not on file Type:Self Pay Address: [place], [place] * Guarantor: FANNY ARREAGA Account Type Relation to Patient Date of Phone Billing Address Personal/Family [address] [place] [address] [facility] SELF PAY NO INSURANCE Member Subscriber Plan / Payer (Ef fective for All Dates) Name:Fanny Arreaga Member ID:Not on file Relation to Subscriber:Not on file Name:FANNY ARREAGA Subscriber ID:Not on file (Home) Address: [address] [place] [address] Payer ID:Not on file Group ID:Not on file Type:Self Pay Address: [place], [place] * Guarantor: FANNY ARREAGA Account Type Relation to Patient Date of Phone Billing Address Personal/Family [address] [place] [address] [facility] SELF PAY NO INSURANCE Member Subscriber Plan / Payer (Ef fective for All Dates) Name:Fanny Arreaga Member ID:Not on file Relation to Subscriber:Not on file Name:FANNY ARREAGA Subscriber ID:Not on file (Home) Address: [address] [place] [id number] Payer ID:Not on file Group ID:Not on file Type:Self Pay Address: [place], [place] Care Teams Employment Coach Relationship Specialty [place] [address] [place] [address] [address] [place] [address] PCP - General 02/28/16
--- OUTSIDE RECORDS SUMMARY | 2024-12-15 09:27 | XMS_ITS | Data Portability ---
Author Organization [facility], Main Office Address [address] [place] [address] Assessment Encounter Date Assessment Date Assessment LastModified by Organization Details LastModified Time 09/25/2022 09/25/2022 Rohit [employer] WORK[employer] [place] [facility] 09/25/22 Call office if worse, ER if life threatening illness RTC 1 month She voices understanding of plan and agrees [email or web address] Not available 09/25/2022 13:16:56 12/07/2022 12/07/2022 [facility]22 Call office if worse, ER if life threatening illness RTC 4 months and PRN She voices understanding of plan and agrees Not available 12/07/2022 12:42:25 Plan of Treatment Reminders Order Date Submit Date Provider Last Modified By Organization Details Last Modified Time Details Appointments None recorded. Lab insulin, serum 2022 023 [facility] (Lab), [address] [place], [address], 3 16:23:04 HbA1c (hemoglobin A1c), blood [address] (Lab), [address] [place], [address], 3 09:01:47 CMP, serum or plasma [address] (Lab), [address] [place], [address], 3 09:01:47 lipid panel, serum [address] (Lab), [address] [place], [address], 3 09:01:47 TSH + free T4, serum [address] (Lab), [address] [place], [address], 3 09:01:47 vitamin B12 + folate, serum or blood [address] (Lab), [address] [place], [address], 3 09:01:46 vitamin D, 25-hydroxy, total, serum [address] (Lab), [address] [place], [address], 3 09:01:47 ferritin, serum or plasma [address] (Lab), [address] [place], [address], 3 09:01:46 iron + total iron-bindin g capacity (TIBC), serum [address] (Lab), [address] [place], [address], 3 09:01:47 CBC w/ auto diff [email or web address] (Lab), [address] [place], [address], 3 09:52:53 Referral neurologist referral 2022 023 MAURO Love MD, [address], [address], [place], [address], 11:37:22 Procedures None recorded. Surgeries None recorded. Imaging None recorded. Medication Orders Trulicity 0.75 mg/0.5 mL subcutaneou s pen injector 2022 023 MAURO [id number], [address], [place], [address], 3 12:33:30 Nurtec ODT 75 mg disintegrat ing tablet 2022 023 [email or web address] [id number], [address], [place], [address], 3 17:45:06 Patient TargetsNo targets recorded. Patient Instructions Encounter Date Encounter Id Patient Instructions Last Modified By Organization Details Last Modified Time 09/25/2022 [id number] INFLUENZA VACCIN E Your next one in the fall of [...] relationship GLUCOSE SCREENING Ordered LIPID SCREENING Ordered [email or web address] Not available 09/25/2022 13:19:47 Reason for Referral Neurologist Referral for Bob moncada Referring Physician: Marleny Lemus, Internal Medicine, Encounter Date: 12/07/2022 Results Created Date Observation Date Name Description Value Unit Range Abnormal Flag Note LastModifiedBy Organization Detail LastModifiedTime 11/29/19 22 11/29/2021 INSUL IN insulin 32.5 uIU/m L 2.6-24 .9 high Perfo rmed at: [facility] [address] [facility], [place] [id number] [facility] Direc tor: Raymundo coronado PhD, Phone : [phone] Not Available [facility] (Lab) [address] [place], [address], 11/29/2021 10:11:54 11/29/19 22 11/28/2021 HEMOG LOBIN A1C HA1C 4.7 % 4.0-6. 0 Diabe elham Scree jessica Crite juventino: <5.7% Consi stent with absen ce of diabe elham 5.7-6 .4% Consi stent with incre ased risk for diabe elham (pred iabet es) >OR=6 .5% Consi stent with diabe elham REFER ENCE: Diabe elham Care 2016, 39(Morales ppl.1 ):s13 -s22 Not Available [facility] (Lab) [address] [place], [address], 11/28/2021 19:02:35 11/29/19 22 11/28/2021 TSH thyroid-stim ulating hormone 1.130 uIU/m L 0.465- 4.680 Not Available [facility] (Lab) [address] [place], [address], 11/28/2021 15:16:46 11/29/19 22 11/28/2021 CORTI RACHID, TOTAL alok 9.5 ug/dL CORTI RACHID RESUL T COMME NT: Refer ence Range : Befor e 10 a.m. Speci men: 4.5-2 2.7 Refer ence Range : After 5 p.m. Speci men: 1.7-[address] ease inter pret above resul ts accor dingl y Not Available [facility] (Lab) [address] [place], [address], 11/28/2021 15:16:41 11/29/19 22 11/28/2021 T4 FREE free T4 1.29 NG/dL 0.78-2 .19 Not Available [facility] (Lab) [address] [place], [address], 11/28/2021 14:59:35 11/29/19 22 11/28/2021 COMPR EHENS AMANDA METAB OLIC PANEL sodium 136 mmol/ L 137-14 5 low Not Available [facility] (Lab) [address] [place], [address], 11/28/2021 14:44:55 11/29/19 22 11/28/2021 COMPR EHENS AMANDA METAB OLIC PANEL potassium 3.8 mmol/ L 3.5-5. 1 Not Available [facility] (Lab) [address] [place], [address], 11/28/2021 14:44:55 11/29/19 22 11/28/2021 COMPR EHENS AMANDA METAB OLIC PANEL chloride 105 mmol/ L 98-107 Not Available [facility] (Lab) [address] [place], [address], 11/28/2021 14:44:55 11/29/19 22 11/28/2021 COMPR EHENS AMANDA METAB OLIC PANEL carbon dioxide 23 mmol/ L 22-30 Not Available [facility] (Lab) [address] [place], [address], 11/28/2021 14:44:55 11/29/19 22 11/28/2021 COMPR EHENS AMANDA METAB OLIC PANEL anion gap 11.8 mmol/ L 14-22 low Not Available [facility] (Lab) [address] [place], [address], 11/28/2021 14:44:55 11/29/19 22 11/28/2021 COMPR EHENS AMANDA METAB OLIC PANEL glucose 84 mg/dL 70-99 Not Available [facility] (Lab) [address] [place], [address], 11/28/2021 14:44:55 11/29/19 22 11/28/2021 COMPR EHENS AMANDA METAB OLIC PANEL BUN 7 mg/dL 8-19 low Not Available [facility] (Lab) [address] [place], [address], 11/28/2021 14:44:55 11/29/19 22 11/28/2021 COMPR EHENS AMANDA METAB OLIC PANEL creatinine 0.67 mg/dL 0.66-1 .25 Not Available [facility] (Lab) [address] [place], [address], 11/28/2021 14:44:55 11/29/19 22 11/28/2021 COMPR EHENS AMANDA METAB OLIC PANEL GFR >60 Refer ence Range : [place] ge GFR Healt hy Adult : >60 [...] or ethni c subgr oups, such as Hismi nics. Outsi de the valid ated barrington [...] calcu lator is avail able on the F websi te: https :[email or web address] [email or web address] [email or web address]/pr mohiniess ional s/kdo qi/gf r_cal culat or Not Available [facility] (Lab) [address] [place], [address], 11/28/2021 14:44:55 11/29/19 22 11/28/2021 COMPR EHENS AMANDA METAB OLIC PANEL alkaline phosphatase 108 U/L 38-126 Not Available [facility] (Lab) [address] [place], [address], 11/28/2021 14:44:55 11/29/19 22 11/28/2021 COMPR EHENS AMANDA METAB OLIC PANEL alanine aminotransfe rase 73 U/L 0-35 high Not Available [facility] (Lab) [address] [place], [address], 11/28/2021 14:44:55 11/29/19 22 11/28/2021 COMPR EHENS AMANDA METAB OLIC PANEL aspartate aminotransfe rase 55 U/L 15-37 high Not Available [facility] (Lab) [address] [place], [address], 11/28/2021 14:44:55 11/29/19 22 11/28/2021 COMPR EHENS AMANDA METAB OLIC PANEL bilirubin, total 0.60 mg/dL 0.20-1 .30 Not Available [facility] (Lab) [address] [place], [address], 11/28/2021 14:44:55 11/29/19 22 11/28/2021 COMPR EHENS AMANDA METAB OLIC PANEL calcium 9.1 mg/dL 8.4-10 .2 Not Available [facility] (Lab) [address] [place], [address], 11/28/2021 14:44:55 11/29/19 22 11/28/2021 COMPR EHENS AMANDA METAB OLIC PANEL total protein 7.4 g/dL 6.3-8. 2 Not Available [facility] (Lab) [address] [place], [address], 11/28/2021 14:44:55 11/29/19 22 11/28/2021 COMPR EHENS AMANDA METAB OLIC PANEL albumin 3.9 g/dL 3.4-5. 0 Not Available [facility] (Lab) [address] [place], [address], 11/28/2021 14:44:55 11/29/19 22 11/28/2021 COMPR EHENS AMANDA METAB OLIC PANEL globulin 3.5 g/dL 2.6-4. 2 Not Available [facility] (Lab) [address] [place], [address], 11/28/2021 14:44:55 11/29/19 22 11/28/2021 COMPR EHENS AMANDA METAB OLIC PANEL A/G ratio 1.1 ratio 1.0-2. 0 Not Available [facility] (Lab) [address] [place], [address], 11/28/2021 14:44:55 09/30/19 22 09/29/2021 US, abdom en, limit ed [facility] [address] [place] [address] [phone] Patien t Name: CUONG PAIZ Access ion #: [id number] Sex: F : 1994 9 Locati on: RAD Attend ing Physic kari: MARLENY LEMUS Orderi Physic kari: MARLENY LEMUS Exam Date: 022 [...] is 0.6 cm Page 1 of 2 [facility] [place] Pati t Name: CUONG PAIZ Access ion #: [id number] Sex: F : 1994 9 Exam [...] 11:46 AM (CT) Page 2 of 2 [id number] [facility] (Imaging) [address] [place], [address], 05/17/2022 01:00:13 06/12/1906/11/2022 US, liver No observ ation record ed. [address], [place], [address], 06/11/2022 17:16:59 01/18/20 23 01/17/2023 CT, brain , w/o contr ast No observ ation record ed. [place] [id number] [facility] [address], [place], [address], 01/24/2023 09:48:01 01/18/20 23 01/17/2023 CT, cervi kia spine , w/o contr ast No observ ation record ed. [address], [place], [address], 01/24/2023 09:48:27 01/18/20 23 01/17/2023 CT, angio gram, chest , w/ contr ast No observ ation record ed. [address], [place], [address], 01/24/2023 09:48:49 Result Notes None recorded. Problems Name Problem SNOMED Code Status Onset Date Resolution Date Notes Provider Name and Address Organization Details Recorded Time Gastritis 4884049 Active Sabine Stephens APRN [address], [address], [place], [address] , [employer] 4 10:00:07 Acute serous otitis media of right ear 1893342070059 105 Active Sabine Stephens APRN [address], [address], [place], [address] , [employer] 4 10:03:05 Low back pain 262522218 Magan Stephens APRN [address], [address], [place], [address] , [employer] 4 10:09:22 Acute pharyngiti s [id number] Magan Stephens APRN [address], [address], [place], [address] , [employer] 4 10:11:02 Chronic hepatitis C 020411094 Active 2021 Not Available [employer] 3 10:38:08 Upper respirator y infection 40558656 Active 2021 Not Available [employer] 3 10:38:08 Acute serous otitis media of left ear 9638053535687 101 Active 2021 Not Available [facility] 3 10:38:08 Right upper quadrant pain 160547209 Active 2021 Not Available [facility] 3 10:38:08 Insulin resistance 794583367 Active 2022 Not Available [facility] 3 10:38:08 Iron deficiency anemia 09703514 Active 2022 Not Available [facility] 3 10:38:08 Hyperlipid emia 23092962 Active 2022 Not Available [facility] 3 10:38:08 Obesity 135368390 Active 2022 Not Available [facility] 3 10:38:08 Vitamin B12 deficiency (non anemic) 09245528 Active 2022 Not Available [facility] 3 10:38:08 Attention deficit hyperactiv ity disorder 153438562 Active 2022 Not Available [facility] 3 10:38:08 Bipolar disorder 08337271 Active 2022 Not Available [facility] 3 10:38:08 Polycystic ovary syndrome 492317781 Active 2022 Not Available [facility] 3 10:38:08 Migraine 55521058 Active 2022 Not Available [facility] 3 10:38:08 Allergic rhinitis 99756188 Active 2022 Not Available [facility] 3 10:38:08 Vitamin D deficiency 90779148 Active 2022 Not Available [facility] 3 10:38:08 Acute sinusitis 25916308 Active 2022 Not Available [facility] 3 10:38:08 Liver enzymes level above reference range 220805482 Active 2022 Not Available [facility] 3 10:38:08 Syncope 154485134 Active 2022 Annie fernandez [facility] [employer] [facility] 3 12:10:43 Problem Notes None recorded. Procedures Surgical History Date Name Laterality Status Provider Name and Address Organization Details Recorded Time 3 Tubal Ligation completed Ekaterina Batres MA [facility] [employer] [facility] 09/25/2022 12:13:00 Cyst Removal completed Not Available [facility] 05/17/2022 00:57:40 Imaging Results None recorded. Procedure Notes None recorded. Medical Equipment None Reported. Allergies Allergen ID Allergen Name Allergen Category Reaction Reaction Severity Criticality Documentation Date Start Date Code Code System Note Provider Name and Address Organization Details Recorded Time 01295 No known allergy (situatio n) Not available Not available Not available Not available 07/16/2023 58568 6003 SNOMED Sabine Stephens, [employer] [address] [facility], [address], [place], [address], [facility] [employer] 4 10:00:20 No known drug allergies Medications [...] completed Not Available Not Available Not Available Se- 19 29 mg iron-1 mg tablet 06/06 [...] Updated DateTime 3 157.48 cm 38.8 kg/m2 25292.5 8 g 98.4 [degF] 98 /min 97 % 97 % 126/78 mm[Hg] Ekaterina Batres [place] [facility] [employer] [facility] 3 12:17:11 Date Recorded Body mass index (BMI) Body height Oxygen saturation Oxygen saturation in Arterial blood by Pulse oximetry Heart rate Body temperature Body weight Systolic And Diastolic Provider Name and Address Organization Details Last Updated DateTime 2 40.1 kg/m2 157.48 cm 98 % 98 % 88 /min 97.4 [degF] 93941.7 3 g 128/76 mm[Hg] Not Available [facility] 3 00:58:27 Date Recorded Body mass index (BMI) Body height Oxygen saturation Oxygen saturation in Arterial blood by Pulse oximetry Heart rate Body temperature Body weight Systolic And Diastolic Provider Name and Address Organization Details Last Updated DateTime 2 40.2 kg/m2 157.48 cm 98 % 98 % 98 /min 97.6 [degF] 11874.3 2 g 122/78 mm[Hg] Not Available [facility] 3 00:58:27 Date Recorded Body height Body mass index (BMI) Body weight Body temperature Heart rate Oxygen saturation Oxygen saturation in Arterial blood by Pulse oximetry Systolic And Diastolic Provider Name and Address Organization Details Last Updated DateTime 3 157.48 cm 39.1 kg/m2 51666.7 7 g 98 [degF] 70 /min 99 % 99 % 124/78 mm[Hg] Ekaterina Batres [place] [facility] [place] [employer] 3 12:24:56 Date Recorded Body mass index (BMI) Body height Oxygen saturation Oxygen saturation in Arterial blood by Pulse oximetry Heart rate Body temperature Body weight Systolic And Diastolic Provider Name and Address Organization Details Last Updated DateTime 2 40.1 kg/m2 157.48 cm 98 % 98 % 102 /min 97.1 [degF] 28631.7 3 g 126/74 mm[Hg] Not Available [facility] 3 00:58:27 Social History Question Answer Notes LastModified by Organization Details LastModified Time Tobacco Smoking Status Former Smoker quit 3 years ago Not Available [facility] 05/17/2022 00:57:26 What Is Your Level Of Caffeine Consumption? Occasional MIGRATION.030 [id number] Information not available 05/17/2022 In The 14 Days Before Symptom Onset, Have You Had Close Contact With A Laboratory-confi rmed COVID-19 While That Case Was Ill? No MIGRATION.030 [id number] Information not available 05/17/2022 In The 14 Days Before Symptom Onset, Have You Had Close Contact With A Person Who Is Under Investigation For COVID-19 While That Person Was Ill? No MIGRATION.030 [id number] Information not available 05/17/2022 What Type Of Diet Are You Following? REGULAR MIGRATION.030 221439 Information not available 05/17/2022 What Is The Highest Grade Or Level Of School You Have Completed Or The Highest Degree You Have Received? GV60490-3 MIGRATION.030 033919 Information not available 05/17/2022 What Is The Fluoride Status Of Your Home? Unknown MIGRATION.030 021096 Information not available 05/17/2022 When Did You Quit Smoking? 1-5yearssincelastkimberly peace MIGRATION.300 [id number] Information not available 05/17/2022 Are There Any Guns Present In Your Home? Yes MIGRATION.030 [id number] Information not available 05/17/2022 Do You Use Insect Repellent Routinely? No MIGRATION.030 682083 Information not available 05/17/2022 Where Do You Live? [place]House MIGRATION.0301 [id number] Information not available 05/17/2022 What Was The Date Of Your Most Recent Tobacco Screening? 12/07/2022 [email or web address] Information not available 12/07/2022 Have You Ever Been Counseled For Unhealthy Alcohol Use? No MIGRATION.0301 720161 Information not available 05/17/2022 Do You Have Any Pets? Yes MIGRATION.0301 [id number] Information not available 05/17/2022 What Is Your Relationship Status? MIGRATION.0301 [id number] Information not available 05/17/2022 Do You Use Your Seat Belt Or Car Seat Routinely? Yes MIGRATION.0301 [id number] Information not available 05/17/2022 Do You Have Smoke And Carbon Monoxide Detectors In Your Home? Yes MIGRATION.0301 [id number] Information not available 05/17/2022 Are You Passively Exposed To Smoke? No MIGRATION.0301 [id number] Information not available 05/17/2022 Are There Any Smokers In Your House? No MIGRATION.0301 [id number] Information not available 05/17/2022 Do You Use Sunscreen Routinely? Yes MIGRATION.0301 575925 Information not available 05/17/2022 Have You Recently Traveled Abroad? No MIGRATION.0301 [id number] Information not available 05/17/2022 Do You Have Any Dietary Restrictions? No MIGRATION.0301 [id number] Information not available 05/17/2022 Sex: Unknown Functional Status Question Answer Note LastModified by [employer] Details LastModified Time Do you use any illicit or recreational drugs? No [id number] 026 Information not available 05/17/2022 What is your level of alcohol consumption? Occasional MIGRATION.[id number] 026 Information not available 05/17/2022 What is your exercise level? Occasional MIGRATION.[id number] 026 Information not available 05/17/2022 Mental Status Question Answer Note LastModified by OrganPollsb Details LastModified Time Do you feel stressed (tense, restless, nervous, or anxious, or unable to sleep at night)? [id number] [id number] Information not available 05/17/2022 Family History Relationship Description Onset Age of this Age Resolved Age Notes LastModified by Organization Details LastModified Time Father No current problems or disability [id number].076 [id number] Not available 05/17/2022 00:57:41 Mother No current problems or disability MIGRATION.492 [id number] Not available 05/17/2022 00:57:41 Medical History No medical history recorded. Gynecological HistoryNo gynecological history recorded. Obstetrics History GPAL:G 0 P 0 0 0 0 Immunizations Vaccine Type Date Status Note Provider Nam e and Address Organization Details Recorded Time Hib, unspecified formulation 8 completed Sabine Stephens APRN [address], [address], [place], [address], [facility] [employer] [facility] [employer] [facility] 07/16/2023 10:02:29 IPV 2 completed Sabine Stephens APRN [address], [place], [address], [employer] [facility] [employer] [facility] 07/16/2023 10:02:29 MMR 8 completed Sabine Stephens APRN [address], [address], [place], [address], [facility] [employer] [facility] [employer] [facility] 07/16/2023 10:02:29 MMR 2 completed Sabine Stephens APRN [address], [place], [address], [employer] [facility] [employer] [facility] 07/16/2023 10:02:29 COVID-19, mRNA, LNP-S, PF, 30 mcg/0.3 mL dose 2 completed Sabine Stephens APRN [address], [address], [place], [address], [employer] [facility] [employer] [facility] 07/16/2023 10:02:29 COVID-19, mRNA, LNP-S, PF, 30 mcg/0.3 mL dose 2 completed Sabine Stephens APRN [address], [address], [place], [address], [facility] [employer] [facility] 07/16/2023 10:02:29 COVID-19 vaccine, vector-nr, rS-Ad26, PF, 0.5 mL 1 completed Sabine Stephens APRN [address], [address], [place], [address], [place] [facility] 07/16/2023 10:02:29 Tdap 2 completed Sabine Stephens APRN [address], [place], [address], [place] [facility] 07/16/2023 10:02:29 Tdap 3 completed Sabine Stephens APRN [address], [address], [place], [address], [facility] 07/16/2023 10:02:29 Tdap 7 completed Sabine Stephens APRN [address], [address], [place], [address], [facility] 07/16/2023 10:02:29 varicella 8 completed Sabine Stephens APRN [address], [place], [address], [facility] 07/16/2023 10:02:29 varicella 8 completed Sabine Stephens APRN [address], [place], [address], [facility] 07/16/2023 10:02:29 OPV, trivalent 7 completed Sabine Stephens APRN [address], [address], [place], [address], [facility] 07/16/2023 10:02:29 OPV, trivalent 7 completed Sabine Stephens APRN [address], [place], [address], [facility] 07/16/2023 10:02:29 OPV, trivalent 7 completed Sabine Stephens APRN [address], [place], [address], [facility] 07/16/2023 10:02:29 DTP-Hib 7 completed Sabine Stephens APRN [address], [address], [place], [address], [employer] [facility] [employer] [facility] 07/16/2023 10:02:29 DTP-Hib 7 completed Sabine Stephens APRN [address], [address], [place], [address], [employer] [facility] [employer] [facility] 07/16/2023 10:02:29 DTP-Hib 7 completed Sabine Stephens APRN [address], [place], [address], [employer] [facility] [employer] [facility] 07/16/2023 10:02:29 Influenza, split virus, trivalent, PF 1 completed Sabine Stephens APRN [address], [address], [place], [address], [employer] [facility] [employer] [facility] 07/16/2023 10:02:29 Influenza, split virus, trivalent, PF 3 completed Sabine Stephens APRN [address], [address], [place], [address], [employer] [facility] [employer] [facility] 07/16/2023 10:02:29 Influenza, split virus, trivalent, PF 2 completed Sabine Stephens APRN [address], [address], [place], [address], [employer] [facility] [employer] [facility] 07/16/2023 10:02:29 HPV, quadrivalent 7 completed Sabine Stephens APRN [address], [place], [address], [employer] [facility] [employer] [facility] 07/16/2023 10:02:29 HPV, quadrivalent 7 completed Sabine Stephens APRN [address], [place], [address], [employer] [facility] [employer] [facility] 07/16/2023 10:02:29 HPV, quadrivalent 7 completed Sabine Stephens APRN [address], [place], [address], [employer] [facility] [employer] 07/16/2023 10:02:29 Hep B, adolescent or pediatric 7 completed Sabine Stephens APRN [address], [place], [address], [employer] [facility] [employer] 07/16/2023 10:02:29 Hep B, adolescent or pediatric 7 completed Sabine Stephens APRN [address], [place], [address], [employer] [facility] [employer] [facility] 07/16/2023 10:02:29 Hep B, adolescent or pediatric 7 completed A[address]DRA [address], [place], [address], [employer] [facility] [employer] [facility] 07/16/2023 10:02:29 Hep B, adolescent or pediatric 6 completed ALEKSANDRA [address], [place], [address], [employer] [facility] [employer] [facility] 07/16/2023 10:02:29 Hep B, adult 1 completed ALEKSANDRA [address], [place], [address], [employer] [facility] [employer] [facility] 07/16/2023 10:02:29 Hep A, pediatric, unspecified formulation 7 completed ALEKSANDRA [address], [place], [address], [employer] [facility] [employer] [facility] 07/16/2023 10:02:29 Hep A, pediatric, unspecified formulation 8 completed ALEKSANDRA [address], [place], [address], [employer] [facility] [employer] 07/16/2023 10:02:29 Meningococcal MCV4O 3 completed Sabine Stephens APRN [address], [address], [place], [address], [employer] [facility] [employer] [facility] 07/16/2023 10:02:29 meningococcal MCV4P 0 completed Sabine Stephens APRN [address], [place], [address], [facility] [employer] [facility] 07/16/2023 10:02:29 DTaP 8 completed Sabine Stephens APRN [address], [address], [place], [address], [facility] [employer] [facility] 07/16/2023 10:02:30 DTaP 2 completed Sabine Stephens APRN [address], [place], [address], [facility] [employer] [facility] 07/16/2023 10:02:30 Influenza, split virus, quadrivalent, PF 8 completed Sabine Stephens APRN [address], [address], [place], [address], [facility] [employer] [facility] 07/16/2023 10:02:30 Influenza, split virus, quadrivalent, PF 1 completed Sabine Stephens APRN [address], [place], [address], [facility] [employer] [facility] 07/16/2023 10:02:30 Past Encounters Encounter ID Performer Location Encounter Start Date Encounter Closed Date Diagnosis/Indication Diagnosis SNOMED-CT Code Diagnosis ICD10 Code Diagnosis IMO Codes Diagnosis Note [id number] Sloane mckeon MD [facility] Internal Med [address] [facility] [address] [place] [address] 06/06/2021 00:00:00 06/06/2021 13:42:21 [id number] Sloane mckeon MD [facility] Internal Med [address] [place] [address] 07/07/2021 00:00:00 07/07/2021 13:15:28 [id number] Sloane mckeon MD [facility] Internal Med [place] [address] [address] 09/04/2021 00:00:00 09/04/2021 14:23:26 [id number] Sloane mckeon MD [facility] Internal Med [facility] [address] [place] [address] Ave[address] [address] 10/24/2021 00:00:00 10/24/2021 13:25:42 [id number] Sloane mckeon MD [facility] Internal Med [facility] [address] [place] [address] Ave[address] [address] 11/28/2021 00:00:00 11/28/2021 14:00:48 [id number] Sloane mckeon MD [facility] Internal Med [facility] [address] [place] [address] Ave[address] [address] 01/23/2022 00:00:00 01/23/2022 14:13:36 [id number] Sloane mckeon MD [facility] Internal Med [facility] [address] [place] [address] Ave[address] [address] 09/25/2022 12:04:40 09/25/2022 12:39:15 Insulin resistance 853655358 E88.81 Start Trulicity- she is aware of [...] abdominal pain Right uppe r quadrant pain 305172473 R10.11 s/p gallbladde r u/shas order for HIDA scan- recommend she get this donerecomm end low fat dietto ER if worse in the interim hasn't been bothering her lately so she hasn't gotten the HIDA done Iron defic iency anemia 21085792 D50.9 stable on last labs, on PNV Hyperlipidemia 72248098 E78.5 no meds currently, working on diet/exerc ise Obesity 975297475 E66.9 recommend healthy, well balanced mealsfocus on [...] surgeon) Vitamin B1 2 deficiency (non anemic) 73344037 E53.8 on PO supplement Attention deficit hyperactivity disorder 519067029 F90.9 follows psychiatry at [facility] calling today to get an appt with [facility] if any change in mood or behavior Bipolar disorder 0573031 4 F31.9 as above Polycystic ovary syndrome 193092527 E28.2 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 Lilly Vitamin D deficiency 347 10697 E55.9 on daily supplement OTC Chronic hepatitis C 1283 81636 B18.2 following GI- Dr. Grimaldo Liver enzy mes level above reference range 423859366 R74.01 as above- chronic hep c infection Adult [facility] th examination 341136122 Z00.01 Depression screening 171 200567 Z13.31 Ex-smoker 1211618 Z87.89 1 [id number] Sloane mckeon MD [facility] Internal Med [address] [facility] [place] [address] 12/07/2022 12:17:44 12/07/2022 12:40:01 Insulin resistance 822665160 E88.81 on trulicity pt is aware of side effects, risks, benefitspt denies any personal or family history of MEN II or MTC, denies and personal history of pancreatit ispt knows to call the office if any severe n/v or abdominal pain Right uppe r quadrant pain 262265429 R10.11 s/p gallbladde r u/shas order for HIDA scan- recommend she get this donerecomm end low fat dietto ER if worse in the interim hasn't been bothering her lately so she hasn't gotten the HIDA done Iron defic iency anemia 12647595 D50.9 stable on last labs, on PNV Hyperlipidemia 53229816 E78.5 no meds currently, working on diet/exerc ise Obesity 138899522 E66.9 recommend healthy, well balanced mealsfocus on [...] surgeon) Vitamin B1 2 deficiency (non anemic) 12411024 E53.8 on PO supplement Attention deficit hyperactivity disorder 444345519 F90.9 follows psychiatry at [facility] calling today to get an appt with her psych to restart [facility] office if any change in mood or behavior Bipolar disorder 6791546 4 F31.9 as above Polycystic ovary syndrome 366373659 E28.2 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 Lilly Vitamin D deficiency 347 54166 E55.9 on daily supplement OTC Chronic hepatitis C 1283 02637 B18.2 following GI- Dr. Cardona ts meds this weekend Liver enzy mes level above reference range 455092062 R74.01 as above- chronic hep c infection Ex-smoker 7798661 Z87.89 1 Health Concerns Section Related Observation LastModified by Organization Detai ls LastModified Time None Recorded Concern Status LastModified by Organization Details LastModified Time None Recorded Advance Directives Directive None Recorded Payers Insurance Date Sequence Insurance Name Policy Number Policy Evans Covered Member ID Evans Member ID Guarantor Name 09/25/2022 1 [place] [id number] [place] [id number] Cuong Vadim Connor 09/25/2022 2 [place] Cuongjorge Connor [id number] Cuong Connor 03/26/2023 1 [facility] - DOS ON OR AFTER 20 (MEDICAID REPLACEMENT - HMO) Cuong Connor [id number] Cuong Connor Notes Date Note Type Note Provider Name and Address Organization Details Recorded Time 09/25/2022 text/html Cuong presents today for follow-up. She is also due for [...] She is due for labs. Marleny Lemus, OIL FIRE SPECIALIST-C [address] [facility], [place], [address], [facility] [employer] [facility] [employer] 09/25/2022 13:20:30 12/07/2022 text/html Cuong presents today for follow up. We started her last [...] been tolerating it without issue. Marleny Lemus, ANNA-C [address], [facility] [address], [place], [address], [employer] 12/07/2022 12:43:24 OBGyn Episode No OBEpisode recorded.
[2024-12-15 09:44] LABS: Alanine Aminotransferase 12 U/L (6-35); Albumin Level 4.0 g/dL (3.5-5.1); Alkaline Phosphatase 91 U/L (38-126); Anion Gap 6 mmol/L (4-12); Aspartate Amino Transferase 38 U/L (14-36); Bilirubin,Total 0.6 mg/dL (0.2-1.3); Blood Urea Nitrogen 11 mg/dL (7-17); Calcium 8.5 mg/dL (8.4-10.2); Carbon Dioxide 25 mmol/L (22-30); Chloride 105 mmol/L (98-107); Cholesterol 192 mg/dL (0-200); Estimated Glomerular Filt Rate > 60; Glucose 87 mg/dL (65-110); HDL Direct 56 mg/dL; Potassium 3.6 mmol/L (3.4-5.0); Sodium 136 mmol/L (137-145); Total Protein 7.3 g/dL (6.3-8.2); Triglycerides 50 mg/dL (<150)
[2024-12-15 10:21] LABS: Thyroid Stimulating Hormone 1.140 uIU/mL (0.465-4.680)
[2024-12-15 10:26] LABS: Hematocrit 43.2 % (37.0-47.0); Hemoglobin 14.2 g/dL (12.0-15.0); Mean Corpuscular HGB Conc 32.9 g/dl (32-36); Mean Corpuscular Hemoglobin 30.5 pg (26-34); Mean Corpuscular Volume 92.7 fl (80-100); Platelet Count Result 288 k/mm3 (150-375); Red Blood Count 4.66 M/mm3 (4.2-5.4); White Blood Count 9.8 K/mm3 (4.5-10.0)
== END 2024-12-15 09:00 | disposition home or self-care (01) ==
LOC: ANHLAB 09:00
PROVIDERS: PCP Family Medicine; Visit Provider Family Medicine
DX: F41.9 Anxiety disorder, unspecified (principal); E66.9 Obesity, unspecified; Z79.899 Other long term (current) drug therapy
CPT/HCPCS: 36415; 80053; 80061; 84443; 85027

== ENCOUNTER 2025-02-01 08:49 | Day surgery (SDC) | payer OTHER, SELFPAY ==
[2025-01-14 13:53] VITALS: BMI 34.0
--- NOTE | 2025-02-01 06:58 | P.OP_ITS ---
Procedure Note - Detailed Date of Procedure 02/01/25 Pre-op Diagnosis recurrent Ganglion Cyst Right Wrist Post-op Diagnosis Same Procedure Performed re-excision right dorsal wrist ganglion cyst Surgeon Deon Peres MD Lamp Developer Cole White PA-C Anesthesia MAC Description of Procedure INFORMED CONSENT: The patient was seen and examined and marked in the pre-op area.? The patient signed the consent form. PROCEDURE IN DETAIL:The patient taken back to OR on the stretcher in supine position. Time out performed with anesthesia, surgeon and staff agreeing on patient's name site and surgery to be performed SCDs were placed on the lower extremities and inflated. A tourniquet was placed on {right} upper extremity and antibiotics given IV After anesthesia administered sedation I injected {6}cc 1%lido with epi and 0.5% marcaine plain at the operative site The?{right upper extremity}?was prepped and draped in sterile fashion the??{right upper extremity} was? exsanguinated with Esmarch bandage proximal to mass and tourniquet inflated to 250mmHg I proceeded with making an elliptical incision around her previous right dorsal wrist and scar extending proximally and distally to excise dog-ears through skin and dermis with 15 blade scalpel. Littler scissors were used then used to spread through subcutaneous tissue down to the cystic mass. I proceeded with circumferential dissection around this mass and previous scar tissue down to the dorsal wrist capsule. The mass was transected at the dorsal wrist capsule with bipolar cautery. Irrigated with normal saline. A repaired the capsular defect with 3-0 Vicryl suture. 3-0 Vicryl for dermis was used followed by 4-0 Monocryl for subcuticular closure. Length of closure was 3 cm. A dressing of Dermabond, 4x4, iraida, and a volar splint was applied for patient safety, security, and comfort and secured with an denny bandage after the tourniquet was let down noting the hand was warm and well perfused. The patient was then awaken from anesthesia and transferred to the recovery room in stable condition.? Complications - none EBL- 0cc Disposition - home in stable condition Cole White PA-C was essential for positioning, retraction, closure and dressing placement. [facility] Billing Surgery - Charge Forward: Surgery Billing ([id number] for cole)
--- NOTE | 2025-02-01 06:58 | WPDHPUPDATE1 ---
History and Physical Update Update Date/Time: 02/01/25 06:58 Patient seen and examined in pre-operative holding area. No interval change in medical history or symptoms. Patient recalls previous discussion of benefits and alternatives to procedure. Continues to desire to proceed with re-excision right dorsal wrist ganglion cyst. Reviewed procedure, post-op expectations and risks including but not limited to bleeding, infection, injury to tendon/nerve/vessel, decreased hand function, stiffness, RSD, no change or worsening of symptoms, recurrence. I discussed the possible use of assistants and their participation in the case. Patient stated understanding and signed the consent form wishing to proceed.
[2025-02-01 09:07] VITALS: BP 121/87; PULSE 81; RESP 16; TEMP 36.3; O2SAT 100
[2025-02-01] MEDS: ACETAMINOPHEN 500 MG TABLET 1000 MG PO (09:16)
[2025-02-01] MEDS: LACTATED RINGERS 1,000 ML 30 ML IV CONT (09:17)
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
[2025-02-01] MEDS: ceFAZolin SODIUM 2 GM/20 ML SW SYRINGE IV PUSH (10:18)
[2025-02-01] MEDS: LIDO 1%/EPINEPHRINE 1:100,000 20 ML VIAL (10:29)
[2025-02-01] MEDS: BUPivacaine HCL 0.5% 10 ML AMP (10:29)
[2025-02-01 10:44] VITALS: BP 119/76; PULSE 84; RESP 14; O2SAT 100
[2025-02-01 11:05] VITALS: BP 116/83; PULSE 60; RESP 16; O2SAT 100
== END 2025-02-01 11:19 | disposition home or self-care (01) ==
LOC: ASC 08:54
PROVIDERS: PCP Family Medicine; Visit Provider Plastic Surgery
PROC: (CPT 25112; principal; 2025-02-01 10:15)
DX: M67.431 Ganglion, right wrist (principal)
CPT/HCPCS: 25112

== ENCOUNTER 2025-02-01 14:17 | Outpatient (NON) | payer OTHER, SELFPAY ==
--- NOTE | 2025-02-01 | S_PTH ---
PATIENT: Fanny Connor LOC: [facility] U#:[id number] AGE/SX: 29/F ROOM: RE02/01/[address]: Deon Peres MD : 1995 BED: DIS: 02/01/2025 SPEC #: [id number] RECD: 02/03/25 07:20 STATUS: KEVIN REQ #: [id number] REZA: 02/01/25 00:[address]: Deon Peres DEPT: [facility] Surgical RECD BY: Bobby Anderson ENTERED: 02/03/25 07:21 SP TYPE: Surgical OTHR DR: Fabby Tinoco DO Tissues: A - Cyst Procedures: Hematoxylin and Eosin Stain Gross and Microscopic Level 4
== END 2025-02-01 14:18 | disposition home or self-care (01) ==
LOC: ANHLAB 02-02 14:18
PROVIDERS: PCP Family Medicine; Visit Provider Plastic Surgery
DX: M67.40 Ganglion, unspecified site (principal)
CPT/HCPCS: 88305